=== PATIENT | female | born 1995 | race Caucasian/White ===

== ENCOUNTER 2018-09-11 20:45 | Emergency (ER) | payer MEDICAID, SELFPAY ==
[2018-09-11 20:57] VITALS: BP 155/106; PULSE 114; RESP 22; TEMP 36.9; O2SAT 97; BMI 36.3
--- NOTE | 2018-09-11 21:11 | HMH.EDUTC ---
[facility] – [place], [place] Disposition Clinical Impression: Sinusitis Qualifiers: Sinusitis location: unspecified location Chronicity: acute Recurrence: non-recurrent Qualified Code(s): J01.90 - Acute sinusitis, unspecified Disposition: Home, Self-Care Condition on Discharge: Good Instructions: Sinusitis, DI for Sinusitis Additional Instructions: Drink plenty of fluids. Take tylenol or ibuprofen for pain or fever. take the medications as prescribed. Go to your regular doctor if you are not getting better in 48 hours. GO TO THE ER FOR ANY WORSENING OR LIFE THREATENING SYMPTOMS Prescriptions: Cefdinir [Omnicef 300mg Capsule] 300 mg PO BID #20 cap methylPREDNISolone [Medrol] 4 mg PO DIRECTED 6 Days #21 [email or web address] Referrals: Provider,Referral, MD [Primary Care Provider] - Time of Disposition: 21:15 Medical Decision Making - Medical Records Medical records reviewed: No: I reviewed the patient's medical records. - Sujit Inquiry Pt receiving controlled substance: No Sujit was queried for this patient: No Vital Signs: 09/11/18 20:57 09/11/18 21:15 Temperature 98.5 F 98.6 F Temperature Source Oral Oral Pulse Rate 102 H Pulse Rate [Right Brachial] 114 H Respiratory Rate 22 22 Blood Pressure 149/97 H Blood Pressure [Right Arm] 155/106 H Blood Pressure Mean [Right Arm] 122 Blood Pressure Source [Right Arm] Automatic Cuff Blood Pressure Position [Right Arm] Sitting 02 Sat by Pulse Oximetry 97 Oxygen Delivery Method Room Air Room Air - Lab Data Lab results reviewed: Yes: I reviewed the patient's lab results. Lab Results 09/11/18 20:49: Influenza Type A Ag Negative, Influenza Type B Ag Negative, Strep Scn Rapid Clinic Negative Orders (Tests/Meds): ORDERS Category Date Time Status Strep Screen Confirmation Stat Micro 09/11/18 20:49 Received [facility] – [place], [place] HPI - General Stated complaint: sore ,cough,ZHAO,Weakness Time Seen by Provider: 09/11/18 21:11 Mode of Arrival: Family Vehicle Source of Information: Patient Limitations: No Limitations Description of Symptoms (Recalled from Triage Doc. by RN): pt c/o cough, chills, fever, headache, sore throat since wednesday but it progressivly getting worse. HEENT Symptoms (Recalled from RN notes): Yes (FEVER, HEADACHE, SORE THROAT, CHILLS) Resp Symptoms (Recalled from RN notes): Yes (COUGH) Skin Symptoms (Recalled from RN notes): No MS Symptoms (Recalled from RN notes): No Functional Status (Recalled from RN notes): N/A - History of Present Illness Provider Complaint: She is here with chief compliant of sinus pressure, sinus drainage, ear pain and cough. She was treated last month with azithromycin. She states she did get better then, but over the past 3 days these symptoms have returned. 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 I have reviewed the patient's past medical history: Yes Medical History: Denies:: Cancer, Diabetes Mellitus Type 1, Diabetes Mellitus Type 2, MRSA Amputation: No Fractures: No - Social History Smoking Status: Never smoker Alcohol Intake: never Occupational Status: employed - Psychiatric History Expresses thoughts of harming self/others: None Suicide Plan Description: No Plan ROS Obtained: Yes All systems reviewed & no additional complaints -
[2018-09-11 21:15] VITALS: BP 149/97; PULSE 102; RESP 22; TEMP 37; O2SAT 100
[2018-09-11 21:20] LABS: UTC Influenza A Antigen Negative (Negative); UTC Influenza B Antigen Negative (Negative); UTC Strep Screen (Rapid) Negative (Negative)
== END 2018-09-11 21:23 | disposition home or self-care (01) ==
PROVIDERS: Emergency Provider Nurse Practitioner Family
DX: J01.90 Acute sinusitis, unspecified (principal)
CPT/HCPCS: 87804; 87880; 99202

== ENCOUNTER → 2018-11-14 13:35 | Outpatient (CLI) | payer MEDICAID, SELFPAY ==
[2018-11-14 14:08] LABS: Basophils # 0.1 K/mm3 (0-0.2); Basophils % 0.8 % (0.1-2.0); Eosinophils # 0.2 K/mm3 (0.0-0.4); Eosinophils % 2.9 % (0.1-12.0); Hematocrit 39.2 % (37.0-47.0); Hemoglobin 12.9 g/dL (12.2-16.2); Lymphocytes # 1.5 K/mm3 (0.7-4.5); Lymphocytes % 23.3 % (10-50); Mean Corpuscular HGB Conc 32.8 g/dL (31.8-35.4); Mean Corpuscular Hemoglobin 27.7 pg (27.0-31.2); Mean Corpuscular Volume 84.4 fl (81-99); Mean Platelet Volume 7.7 fl (7.4-10.4); Monocytes # 0.3 K/mm3 (0.1-1.0); Monocytes % 4.8 % (1.7-9.3); Neutrophils # 4.4 K/mm3 (1.8-7.8); Neutrophils % 68.3 % (37.0-80.0); Platelet Count 284 K/mm3 (142-424); Red Blood Count 4.64 M/mm3 (4.20-5.40); Red Cell Distribution Width 13.2 % (11.5-17.5); White Blood Count 6.4 K/mm3 (4.8-10.8)
[2018-11-14 15:30] LABS: Alanine Aminotransferase 22 U/L (12-78); Albumin Level 4.2 gm/dL (3.4-5.0); Albumin/Globulin Ratio 1.2 (1.1-1.8); Alkaline Phosphatase 102 U/L (46-116); Anion Gap 16.5 mEq/L (5-15); Aspartate Amino Transferase 9 U/L (15-37); Bilirubin,Total 0.3 mg/dL (0.2-1.0); Blood Urea Nitrogen 13 mg/dL (7-18); Carbon Dioxide 24 mmol/L (21.0-32.0); Chloride 103 mmol/L (98-107); Chol/HDL Ratio 5.4 (1-3.5); Cholesterol 167 mg/dL (140-200); Estimated Glomerular Filt Rate 122 ml/min (>60); Free T4 (Free Thyroxine) 1.11 ng/dl (0.76-1.46); GFR (African American) 147 ML/MIN (>60); Globulin 3.6 gm/dl (1.3-3.2); Glucose 86 mg/dL (74-106); HDL Cholesterol 31 mg/dL (29-89); LDL Cholesterol 113 mg/dL (0-130); Potassium 4.5 mmoL/L (3.5-5.1); Sodium 139 mmol/L (136-145); Thyroid Stimulating Hormone 1.36 uIU/ml (0.358-3.740); Total Protein,Serum 7.8 gm/dL (6.4-8.2); Triglycerides 113 mg/dL (30-200); VLDL Cholesterol 23 mg/dL (0-40)
[2018-11-15 07:07] LABS: Vitamin D 25 Hydroxy 22.3 ng/mL (30.0-100.0)
== END ==
PROVIDERS: Visit Provider Emergency Medicine
DX: R53.83 Other fatigue (principal); R10.9 Unspecified abdominal pain; E55.9 Vitamin D deficiency, unspecified
CPT/HCPCS: 80053; 80061; 82652; 84439; 84443; 85025

== ENCOUNTER → 2018-11-25 07:47 | Outpatient (CLI) | payer MEDICAID, SELFPAY ==
--- NOTE | 2018-11-25 07:48 | US_ITS ---
US gallbladder HISTORY: Upper abdominal pain ITS.REASON: stomach pain ORDERING PHYSICIAN: Thomas Mehta MD PATIENT AGE: 23 years Comparison: None FINDINGS: PANCREAS: Unremarkable. No obvious mass or abnormal fluid collection. No ductal dilatation LIVER: No focal liver lesions demonstrated. Homogeneous echogenicity. No intrahepatic biliary ductal dilatation evident RIGHT KIDNEY: Unremarkable. Normal size and echogenicity. No hydronephrosis GALLBLADDER: No gallstones, gallbladder wall thickening, pericholecystic fluid, or biliary dilatation. IMPRESSION: Negative gallbladder/right upper quadrant ultrasound
== END ==
PROVIDERS: PCP Emergency Medicine; Visit Provider Emergency Medicine
DX: R10.9 Unspecified abdominal pain (principal)
CPT/HCPCS: 76705

== ENCOUNTER 2018-12-29 09:02 | Emergency (ER) | payer MEDICAID, SELFPAY ==
[2018-12-29 09:15] VITALS: BP 141/98; PULSE 106; RESP 20; TEMP 37.2; O2SAT 97; BMI 37.1
--- NOTE | 2018-12-29 09:23 | HMH.EDUTC ---
[facility] [place] Clinical Impression: Viral upper respiratory illness Disposition: Home, Self-Care Condition on Discharge: Good Instructions: Sore Throat, Common Cold, Cough, DI for Cough -- Adult, DI for Viral Upper Respiratory Infection -- Adult Additional Instructions: *Monitor Temp, Over the counter Motrin or Tylenol as directed/as needed Tylenol every 4 hours and Motrin every 6 hours (as long as your family doctor has told you that you can take it) for fever or pain. and straight to ER if unable to lower temp less than 101.0 after medication given *Warm salt water gargles may help to soothe the throat *Throat Lozenges *Warm fluids *Sleep elevated *Humidifier/Vaporizer *Flonase 2 sprays in each nostril daily but be aware that it may take 2-3 days before you notice improvement Your throat swab was sent for culture. Those results are typically sent to your primary care. Be sure to follow up in 2-3 days with your family doctor/primary care physician if no improvement so they can review those result and treat if necessary. If you don?t have a primary care doctor, I recommend you get one but in the mean time, you will have to return to a walk in clinic Follow up IMMEDIATELY for new or worsening symptoms or no Noticeable improvement over the next 48-72 hours. 911 for difficulty breathing or swallowing Prescriptions: Fluticasone Propionate [Flonase 50mcg nasal spray 16gm] 2 spr NS DAILY #1 bottle Referrals: Thomas Mehta MD [Primary Care Provider] - As needed Time of Disposition: 09:36 Medical Decision Making - Sujit Inquiry Pt receiving controlled substance: No Sujit was queried for this patient: No Vital Signs: 12/29/18 09:15 Temperature 98.9 F Temperature Source Oral Pulse Rate [Right Brachial] 106 H Respiratory Rate 20 Blood Pressure [Right Arm] 141/98 H Blood Pressure Mean [Right Arm] 112 Blood Pressure Source [Right Arm] Automatic Cuff Blood Pressure Position [Right Arm] Sitting 02 Sat by Pulse Oximetry 97 Oxygen Delivery Method Room Air - Lab Data Lab results reviewed: Yes: I reviewed the patient's lab results. [facility] [place] - General Stated complaint: weak, fever, chills, cough, diarrhea Time Seen by Provider: 12/29/18 09:23 Mode of Arrival: Ambulatory Source of Information: Patient Limitations: No Limitations Description of Symptoms (Recalled from Triage Doc. 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 States that this morning she felt better than yesterday but was worried she may have strep State that she has had nausea but denies vomiting or diarrhea - Related Data Home Medications Medication Instructions Recorded Confirmed Cholecalciferol (Vitamin D3) 1,000 unit PO DAILY 12/29/18 12/29/18 [Vitamin D3 1,000 Unit Cap] Ergocalciferol (Vitamin D2) 50,000 unit PO QWEEK 12/29/18 12/29/18 [Drisdol] Lisinopril [Lisinopril 10mg Tab] 10 mg PO DAILY 12/29/18 12/29/18 Pantoprazole Sodium [Protonix 40mg 40 mg PO DAILY 12/29/18 12/29/18 tablet] Previous Rx's Medication Instructions Recorded Fluticasone Propionate [Flonase 2 spr NS DAILY #1 bottle 12/29/18 50mcg nasal spray 16gm] Allergies Allergy/AdvReac Type Severity Reaction Status Date / Time No Known Allergies Allergy Verified 12/07/18 16:26 - Worker's Comp Is this a Worker's Comp case?: No H History
--- NOTE | 2018-12-29 09:26 | ED_ITS ---
[facility] – [place] Clinical Impression: Viral upper respiratory illness Disposition: Home, Self-Care Condition on Discharge: Good Instructions: Sore Throat, Common Cold, Cough, DI for Cough -- Adult, DI for Viral Upper Respiratory Infection -- Adult Additional Instructions: *Monitor Temp, Over the counter Motrin or Tylenol as directed/as needed Tylenol every 4 hours and Motrin every 6 hours (as long as your family doctor has told you that you can take it) for fever or pain. and straight to ER if unable to lower temp less than 101.0 after medication given *Warm salt water gargles may help to soothe the throat *Throat Lozenges *Warm fluids *Sleep elevated *Humidifier/Vaporizer *Flonase 2 sprays in each nostril daily but be aware that it may take 2-3 days before you notice improvement Your throat swab was sent for culture. Those results are typically sent to your primary care. Be sure to follow up in 2-3 days with your family doctor/primary care physician if no improvement so they can review those result and treat if necessary. If you don?t have a primary care doctor, I recommend you get one but in the mean time, you will have to return to a walk in clinic Follow up IMMEDIATELY for new or worsening symptoms or no Noticeable improvement over the next 48-72 hours. 911 for difficulty breathing or swallowing Prescriptions: Fluticasone Propionate [Flonase 50mcg nasal spray 16gm] 2 spr NS DAILY #1 bottle Referrals: Thomas Mehta MD [Primary Care Provider] - As needed Time of Disposition: 09:36 Medical Decision Making - Sujit Inquiry Pt receiving controlled substance: No Sujit was queried for this patient: No Vital Signs: 12/29/18 09:15 Temperature 98.9 F Temperature Source Oral Pulse Rate [Right Brachial] 106 H Respiratory Rate 20 Blood Pressure [Right Arm] 141/98 H Blood Pressure Mean [Right Arm] 112 Blood Pressure Source [Right Arm] Automatic Cuff Blood Pressure Position [Right Arm] Sitting 02 Sat by Pulse Oximetry 97 Oxygen Delivery Method Room Air - Lab Data Lab results reviewed: Yes: I reviewed the patient's lab results. [facility] – [place] H[place] - General Stated complaint: weak, fever, chills, cough, diarrhea Time Seen by Provider: 12/29/18 09:23 Mode of Arrival: Ambulatory Source of Information: Patient Limitations: No Limitations Description of Symptoms (Recalled from Triage Doc. 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 States that this morning she felt better than yesterday but was worried she may have strep State that she has had nausea but denies vomiting or diarrhea - Related Data Home Medications Medication Instructions Recorded Confirmed Cholecalciferol (Vitamin D3) 1,000 unit PO DAILY 12/29/18 12/29/18 [Vitamin D3 1,000 Unit Cap] Ergocalciferol (Vitamin D2) 50
[2018-12-29 09:32] LABS: UTC Strep Screen (Rapid) Negative (Negative)
[2018-12-29 09:42] VITALS: BP 141/98; PULSE 106; RESP 20; TEMP 37.2; O2SAT 97
== END 2018-12-29 09:43 | disposition home or self-care (01) ==
PROVIDERS: Emergency Provider Nurse Practitioner; PCP Emergency Medicine
DX: J06.9 Acute upper respiratory infection, unspecified (principal); I10 Essential (primary) hypertension; K21.9 Gastro-esophageal reflux disease without esophagitis
CPT/HCPCS: 87880; 99201

== ENCOUNTER 2019-01-03 06:18 | Day surgery (SDC) | payer MEDICAID, SELFPAY ==
[2019-01-03 06:42] VITALS: BP 135/78; PULSE 109; RESP 18; TEMP 36.7; O2SAT 99
[2019-01-03 06:50] VITALS: BMI 37.1
[2019-01-03 06:56] LABS: Urine Pregnancy, HCG Qual. Negative (Negative)
[2019-01-03 07:22] VITALS: O2SAT 98
--- NOTE | 2019-01-03 07:39 | HMH.SCOPE ---
- Procedure: Date: 01/03/19 Procedure Performed:: Esophagogastroduodenoscopy with biopsies Indications:: Patient is a 23-year-old white female who is referred by Dr. Lawrence Mehta for possible upper endoscopy. She states that she has a long-standing history of symptoms consistent with heartburn and dyspepsia. It was worst when she was with her child. However, she still does have some symptoms mostly of burning and nausea. It seems to be worse at night and awakens her from sleep. She did have a gallbladder ultrasound which was unremarkable. She has been on pantoprazole for several weeks and this has helped significantly with only one episode of symptomatology. Plan was to proceed with upper endoscopy with biopsies. If unremarkable consideration of HIDA scan. Performing Provider:: Roberto Brooks MD Referring Provider:: Janine Sedation:: Propofol Procedure:: Consent was obtained and patient was taken to endoscopy procedure room. She was positioned in a lateral decubitus position. Sedation was achieved with titration of propofol. Olympus endoscope was inserted via the oropharynx and advanced through the esophagus. Overall esophagus appeared unremarkable. GE junction was encountered at 35 cm from the incisors and appeared unremarkable. Stomach was cannulated and insufflated. There was some retained food matter, minimal, and the gastric lumen. Retroflexion revealed no evidence of any appreciable hiatal hernia. There were several punctate shallow ulcerations versus erosions in the antrum. Pylorus was traversed. There was some food matter in the duodenal bulb. Duodenum overall appeared unremarkable. Please note that CLOtest was performed by biopsy within the gastric lumen. Duodenal biopsy was performed using cold biopsy forceps. Gastric biopsies were performed of the areas of the shallow punctate ulcerations/erosions. Stomach was desufflated and the scope was withdrawn. Findings:: Gastric antral shallow ulcerations/erosions Small amount of retained food matter within gastric lumen Recommendations:: Plan to follow-up on the biopsy results and H. pylori status and tailor medical management appropriately. If biopsies are relatively unremarkable may consider gastric emptying scan that she may have some degree of gastroparesis. Possible biliary dyskinesia may be a contributing factor as well. Complications:: None Estimated blood obtained (mL): 1
[2019-01-03 07:40] VITALS: BP 104/98; PULSE 110; RESP 16; TEMP 36.7; O2SAT 97
--- NOTE | 2019-01-03 07:58 | HMH.ANESCL ---
[facility] Anesthesia Checklist - Structural Data Admitted From: Home Planned Operative Procedure/s: egd Consent for Planned Operative Procedure(s) Verified: Yes - Airway Assessment C-Spine Mobility Assessed: Yes TMJ Mobility Assessed: Yes Dentition: Good Dentition - Neurological Assessment Level of Consciousness: Awake, Alert, Appropriate - Anesthesia Plan Anesthesia Risk discussed: Yes Anesthesia Plan: Verified ASA Class: II Anesthesia Type: [facility] History I have reviewed the patient's past medical history: Yes Medical History: Reports:: Gastroesophageal Reflux Disease(GERD), Hypertension Denies:: Cancer, Diabetes Mellitus Type 1, Diabetes Mellitus Type 2, Internal Pacemaker, Lung Disease, MRSA, Seizures *Have you ever received a pneumonia vaccine?: No *Have you received a flu vaccine this season?: No Other Surgeries: Yes: , Other. No: Pacemaker Amputation: No Fractures: No - *Social History Smoking Status: Never smoker Alcohol Intake: never Substance Use Type: denies use *Occupational Status:: employed *Travel in the last 8 weeks: Inside the [facility] Family Hx:: Heart Attack, Hypertension, Cancer
[2019-01-03 08:00] VITALS: BP 117/58; PULSE 94; RESP 18; TEMP 36.7; O2SAT 98
[2019-01-03 08:10] VITALS: BP 124/68; PULSE 94; RESP 18; TEMP 36.7; O2SAT 96
== END 2019-01-03 08:12 | disposition home or self-care (01) ==
LOC: OUTP 06:19
PROVIDERS: PCP Emergency Medicine; Visit Provider Surgery
PROC: 0DJ08ZZ Inspection of Upper Intestinal Tract, Via Natural or Artificial Opening Endoscopic (ICD-10-PCS; CPT 43235; principal; 2019-01-03 07:30)
DX: K25.9 Gastric ulcer, unspecified as acute or chronic, without hemorrhage or perforation (principal)
CPT/HCPCS: 43239; 81025; 87339

== ENCOUNTER 2019-11-18 13:06 | Emergency (ER) | payer MEDICAID, SELFPAY ==
[2019-11-18 13:30] VITALS: BP 122/79; PULSE 105; RESP 19; TEMP 36.8; O2SAT 98; BMI 37.1
--- NOTE | 2019-11-18 13:39 | HMH.EDUTC ---
[facility] – [place] Clinical Impression: Strep throat Disposition: Home, Self-Care Condition on Discharge: Good Instructions: Strep Throat, DI for Strep Throat Additional Instructions: Drink plenty of fluids. Take tylenol or ibuprofen for pain or fever. Take the medications as directed. Follow up with your regular doctor. GO TO THE ER FOR ANY WORSENING SYMPTOMS Throw your tooth brush away and get a new one by tomorrow. Don't start the oral steroids until tomorrow. If you feel completely better you do not need to start them at all. Prescriptions: methylPREDNISolone [Medrol] 4 mg PO DIRECTED 6 Days #21 [email or web address] Transmission Status: Received by [facility] #[id number] Referrals: Thomas Mehta MD [Primary Care Provider] - Time of Disposition: 14:07 Medical Decision Making - Medical Records Medical records reviewed: No: I reviewed the patient's medical records. - Sujit Inquiry Pt receiving controlled substance: No Vital Signs: 11/18/19 13:30 11/18/19 14:10 Temperature 98.2 F 98.2 F Temperature Source Oral Pulse Rate 105 H Pulse Rate [Left Brachial] 105 H Respiratory Rate 19 19 Blood Pressure 122/79 Blood Pressure [Left Arm] 122/79 Blood Pressure Mean [Left Arm] 93 Blood Pressure Source [Left Arm] Automatic Cuff Blood Pressure Position [Left Arm] Sitting 02 Sat by Pulse Oximetry 98 Oxygen Delivery Method Room Air - Lab Data Lab results reviewed: Yes: I reviewed the patient's lab results. Lab Results 11/18/19 13:41: Influenza Type A Ag Negative, Influenza Type B Ag Negative 11/18/19 13:41: Strep Scn Rapid Clinic Positive A Orders (Tests/Meds): ED MEDICATIONS Discontinued Medications Generic Name Dose Route Start Last Admin Trade Name Freq PRN Reason Stop Dose Admin Methylprednisolone Sodium Succinate 125 mg 11/18/19 13:48 11/18/19 14:01 Solu-Medrol 125mg/2ml Vial IM 11/18/19 13:49 125 mg ONCE ONE Administration Penicillin G Benzathine 1,200,000 unit 11/18/19 13:48 11/18/19 14:01 Bicillin La 1,200,000 Units/2ml Syringe IM 11/18/19 13:49 1,200,000 unit ONCE ONE Administration Protocol [facility] [place] HPI - General Stated complaint: sore throat,fever,headache Time Seen by Provider: 11/18/19 13:39 Mode of Arrival: Ambulatory Source of Information: Patient Limitations: No Limitations Description of Symptoms (Recalled from Triage Doc. by RN): PATIENT C/O SORE THROAT SINCE WEDNESDAY THAT HAS WORSENED, AND MILD COUGH, BODYACHES, HEADACHE, AND FEVER SINCE WEDNESDAY; NO KNOWN SICK CONTACTS OR TRAVEL, PATIENT DOES WORK AT [employer] HEENT Symptoms (Recalled from RN notes): Yes Resp Symptoms (Recalled from RN notes): Yes Skin Symptoms (Recalled from RN notes): No MS Symptoms (Recalled from RN notes): Yes Functional Status (Recalled from RN notes): WNL - History of Present Illness Provider Complaint: She c/o sore throat for the past 2 days. - Related Data Previous Rx's Medication Instructions Recorded pantoprazole 40 mg tablet,delayed 40 mg PO DAILY #90 tab 09/04/19 release lisinopril 10 mg tablet 10 mg PO DAILY #90 tab 10/09/19 methylPREDNISolone [Medrol] 4 mg PO DIRECTED 6 Days #21 11/18/19 [email or web address] Allergies Allergy/AdvReac Type Severity Reaction Status Date / Time No Known Allergies Allergy Verified 08/10/19 10:30 - Worker's Comp Is this a Worker's Comp case?: No [facility] History - Hepatitis A Screen Drug use history?: No High risk sexual behaviors?: No History of sexually transmitted infection?: No Currently employed?: No Childcare worker?: No Do you have indoor plumbing?: Yes Do you have electricity?: Yes Attestation statement:: This patient has been screened for Hepatitis A risk factors. I have reviewed the patient's past medical history: Yes Medical History: Reports:: Gastroesophageal Reflux Disease(GERD), Hypertension Denies:: Cancer, Diabetes Mellitus Type 1, Diabetes Mellitus Type 2,
[2019-11-18 13:43] LABS: UTC Influenza A Antigen Negative (Negative); UTC Influenza B Antigen Negative (Negative); UTC Strep Screen (Rapid) Positive (Negative)
[2019-11-18 14:10] VITALS: BP 122/79; PULSE 105; RESP 19; TEMP 36.8; O2SAT 98
== END 2019-11-18 14:13 | disposition home or self-care (01) ==
PROVIDERS: Emergency Provider Nurse Practitioner Family; PCP Emergency Medicine
DX: J02.0 Streptococcal pharyngitis (principal); K21.9 Gastro-esophageal reflux disease without esophagitis; I10 Essential (primary) hypertension
CPT/HCPCS: 87804; 87880; 96372; 99202; J0561

== ENCOUNTER 2019-12-22 13:02 | Emergency (ER) | payer MEDICAID, SELFPAY ==
[2019-12-22 13:46] VITALS: BP 131/77; PULSE 73; RESP 20; TEMP 36.6; O2SAT 97; BMI 38.7
[2019-12-22 13:50] LABS: UTC Strep Screen (Rapid) Positive (Negative)
--- NOTE | 2019-12-22 13:53 | HMH.EDUTC ---
[facility] [place]: Strep [place] Disposition: Home, Self-Care Condition on Discharge: Good Instructions: Strep Throat (Alternative Therapy), Strep Throat, DI for Strep Throat Additional Instructions: *If you did not take Penicillin shot or was unable to, start taking antibiotic immediately and make sure that you take it for the FULL length of time although you should start to feel better in 24-48 hours *change toothbrush and toothpaste 24-48 hours after starting to take antibiotics so you do not reinfect yourself Monitor Temp. Tylenol and/or Ibuprofen as needed. ER if fever is no less than 101 despite alternating Tylenol and Ibuprofen * Encourage fluids, water, Gatorade, powerade, pedialyte if /toddler/or child *Cold fluids, popsicles and ice cream may feel good on his throat Monitor Temp, Over the counter Motrin or Tylenol as directed/as needed Tylenol every 4 hours and Motrin every 6 hours (as long as your family doctor has told you that you can take it) for fever or pain. and straight to ER if unable to lower temp less than 101.0 after medication given *Warm salt water gargles may help to soothe the throat *Throat Lozenges *Warm fluids *Sleep elevated *Humidifier/Vaporizer Follow up IMMEDIATELY for new or worsening symptoms or no Noticeable improvement over the next 48-72 hours. 911 for difficulty breathing or swallowing Prescriptions: Amoxicillin [Amoxicillin 500mg Cap] 500 mg PO BID 10 Days #20 cap Transmission Status: Pending to [facility] #[id number] Referrals: Thomas Mehta MD [Primary Care Provider] - As needed Time of Disposition: 13:57 Medical Decision Making - Sujit Inquiry Pt receiving controlled substance: No Sujit was queried for this patient: No Vital Signs: 12/22/19 13:46 Temperature 97.9 F Temperature Source Oral Pulse Rate [Right Brachial] 73 Respiratory Rate 20 Blood Pressure [Right Arm] 131/77 Blood Pressure Mean [Right Arm] 95 Blood Pressure Source [Right Arm] Automatic Cuff Blood Pressure Position [Right Arm] Sitting 02 Sat by Pulse Oximetry 97 Oxygen Delivery Method Room Air - Lab Data Lab results reviewed: Yes: I reviewed the patient's lab results. 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 - Related Data Previous Rx's Medication Instructions Recorded pantoprazole 40 mg tablet,delayed 40 mg PO DAILY #90 tab 09/04/19 release lisinopril 10 mg tablet 10 mg PO DAILY #90 tab 10/09/19 Amoxicillin [Amoxicillin 500mg 500 mg PO BID 10 Days #20 cap 12/22/19 Cap] Allergies Allergy/AdvReac Type Severity Reaction Status Date / Time No Known Allergies Allergy Verified 08/10/19 10:30 - Worker's Comp Is this a Worker's Comp case?: No [facility] History - Hepatitis A Screen Drug use history?: No High risk sexual behaviors?: No History of sexually transmitted infection?: No Currently employed?: No Childcare worker?: No Do you have indoor plumbing?: Yes Do you have electricity?: Yes Attestation statement:: This patient has been screened for Hepatitis A risk factors. I have re
[2019-12-22 14:08] VITALS: BP 131/77; PULSE 73; RESP 20; TEMP 36.6; O2SAT 97
== END 2019-12-22 14:14 | disposition home or self-care (01) ==
PROVIDERS: Emergency Provider Nurse Practitioner; PCP Emergency Medicine
DX: J02.0 Streptococcal pharyngitis (principal); I10 Essential (primary) hypertension; K21.9 Gastro-esophageal reflux disease without esophagitis; Z79.899 Other long term (current) drug therapy
CPT/HCPCS: 87880; 99201

== ENCOUNTER 2020-02-06 20:07 | Emergency (ER) | payer MEDICAID, SELFPAY ==
[2020-02-06 20:22] VITALS: BP 124/100; PULSE 99; RESP 21; TEMP 36.6; O2SAT 98; BMI 39.0
--- NOTE | 2020-02-06 20:36 | HMH.EDUTC ---
[facility] [place] Disposition Clinical Impression: Bronchitis Disposition: Home, Self-Care Condition on Discharge: Good Instructions: Acute Bronchitis, DI for Acute Bronchitis Additional Instructions: Drink plenty of fluids. Take tylenol or ibuprofen for pain or fever. Take the medications as directed. Follow up with your regular doctor. GO TO THE ER FOR ANY WORSENING SYMPTOMS Prescriptions: Brompheniramine/Pseudoephed/Dm [Bromfed Dm Cough Syrup] 5 ml PO Q6HP PRN #240 syrup PRN Reason: Cough Transmission Status: Received by [employer] # methylPREDNISolone [Medrol] 4 mg PO DIRECTED 6 Days #21 tab.[email or web address] Transmission Status: Received by [employer] # Azithromycin [Z-Jam 250mg Tab*] 250 mg PO UD DOSE PK #6 tab Transmission Status: Received by [employer] # Referrals: Thomas Mehta MD [Primary Care Provider] - Forms: Work/School Release Time of Disposition: 20:38 Medical Decision Making - Medical Records Medical records reviewed: No: I reviewed the patient's medical records. - Sujit Inquiry Pt receiving controlled substance: No Vital Signs: 02/06/20 20:22 02/06/20 20:42 Temperature 97.9 F 97.9 F Temperature Source Oral Pulse Rate 99 H Pulse Rate [Right Brachial] 99 H Respiratory Rate 21 21 Blood Pressure 124/100 H Blood Pressure [Right Arm] 124/100 H Blood Pressure Mean [Right Arm] 108 Blood Pressure Source [Right Arm] Automatic Cuff Blood Pressure Position [Right Arm] Sitting 02 Sat by Pulse Oximetry 98 Oxygen Delivery Method Room Air - Lab Data Lab Results 02/06/20 20:27: Strep Scn Rapid Clinic Negative Orders (Tests/Meds): ORDERS Category Date Time Status SARS-CoV-2, HANK Stat Lab 02/06/20 20:39 Received Strep Screen Confirmation Stat Micro 02/06/20 20:27 Received [facility] [place] HPI - General Stated complaint: cough,ZHAO,Weakness Time Seen by Provider: 02/06/20 20:25 Mode of Arrival: Ambulatory Source of Information: Patient Limitations: No Limitations Description of Symptoms (Recalled from Triage Doc. by RN): PATIENT C/O COUGH (PRODUCTIVE IN AM), HEADACHE, SORE THROAT, WEAKNESS, AND EAR ACHE SINCE WEDNESDAY. DENIES FEVER HEENT Symptoms (Recalled from RN notes): Yes Resp Symptoms (Recalled from RN notes): Yes Skin Symptoms (Recalled from RN notes): No MS Symptoms (Recalled from RN notes): No Functional Status (Recalled from RN notes): WNL - History of Present Illness Provider Complaint: She c/o cough, sinus congestion and sore throat for the past 2 days. She denies any fever or chills. 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 - Related Data Previous Rx's Medication Instructions Recorded lisinopril 10 mg tablet 10 mg PO DAILY #90 tab 01/05/20 pantoprazole 40 mg tablet,delayed 40 mg PO DAILY #90 tab 01/05/20 release Azithromycin [Z-Jam 250mg Tab*] 250 mg PO UD DOSE PK #6 tab 02/06/20 Brompheniramine/Pseudoephed/Dm 5 ml PO Q6HP PRN #240 syrup 02/06/20 [Bromfed Dm Cough Syrup] methylPREDNISolone [Medrol] 4 mg PO DIRECTED 6 Days #21 02/06/20 tab.ds.pk Allergies Allergy/AdvReac Type Severity Reaction Status Date / Time No Known Allergies Allergy Verified 08/10/19 10:30 - Worker's Comp Is this a Worker's Comp case?: No [facility] History - Hepatitis A Screen Drug use history?: No High risk sexual behaviors?: No History of sexually transmitted infection?: No Currently employed?: No Childcare worker?: No Do you have indoor plumbing?: Yes Do you have electricity?: Yes Attestation statement:: This patient has been screened for Hepatitis A risk factors. I have reviewed the patient's past medical history: Yes Medical History: Reports:: Gastroesophageal Reflux Disease(GERD), Hypertension Denies:: Cancer, Diabetes Mellitus Type 1, Diabetes Mellitus Type 2, Internal Pacemaker, Lung Disease, MRSA, Seizures Other Surgeries: Yes: , EGD, Other. No: Pacemaker Amputation: No Fractures: No - Social History S
[2020-02-06 20:37] LABS: UTC Strep Screen (Rapid) Negative (Negative)
[2020-02-06 20:42] VITALS: BP 124/100; PULSE 99; RESP 21; TEMP 36.6; O2SAT 98
[2020-02-08 11:46] LABS: Covid-19 Nasal PCR Sendout Lex Not Detected
== END 2020-02-06 20:45 | disposition home or self-care (01) ==
PROVIDERS: Emergency Provider Nurse Practitioner Family; PCP Emergency Medicine
DX: J20.9 Acute bronchitis, unspecified (principal); K21.9 Gastro-esophageal reflux disease without esophagitis; I10 Essential (primary) hypertension
CPT/HCPCS: 87880; 99202; U0004

== ENCOUNTER → 2020-04-24 18:15 | Outpatient (CLI) | payer MEDICAID, SELFPAY | PROVIDERS: Visit Provider Nurse Practitioner Family | DX: N39.0 Urinary tract infection, site not specified (principal) | CPT/HCPCS: 87086; 87088; 87186 ==

== ENCOUNTER 2020-07-15 16:50 | Emergency (ER) | payer MEDICAID, SELFPAY ==
[2020-07-15 18:00] VITALS: BP 168/89; PULSE 86; RESP 20; TEMP 36.6; O2SAT 100; BMI 40.3
--- NOTE | 2020-07-15 18:25 | HMH.EDUTC ---
[facility] [place] Clinical Impression: Close exposure to COVID-19 virus Disposition: Home, Self-Care Condition on Discharge: Good Instructions: DI for COVID-19 (Suspected or Confirmed ), COVID-19: Testing and Tracing, COVID-19 Viral Test Additional Instructions: *Monitor Temp, Over the counter Motrin or Tylenol as directed/as needed Tylenol every 4 hours and Motrin every 6 hours (as long as your family doctor has told you that you can take it) for fever or pain. and straight to ER if unable to lower temp less than 101.0 after medication given Follow up IMMEDIATELY for new or worsening symptoms or no Noticeable improvement over the next 48-72 hours. 911 for difficulty breathing or swallowing You were tested for today for COVID19 your test result should be back in the next 24-48 hours, you may call to the [facility] to see if your test results are back in the next 48 hours [phone] [facility] hours are 9am-9pm You was given a handout with instructions for Self Quarantine and Self isolation for while you wait on test results and what to do if they are positive If you are positive the Health Dept will be contacting you also Referrals: Thomas Mehta MD [Primary Care Provider] - As needed Forms: Work/School Release Time of Disposition: 18:27 Medical Decision Making - Sujit Inquiry Pt receiving controlled substance: No Sujit was queried for this patient: No Vital Signs: 07/15/20 18:00 Temperature 97.8 F Temperature Source Temporal Artery Scan Pulse Rate [Right Brachial] 86 Respiratory Rate 20 Blood Pressure [Right Arm] 168/89 H Blood Pressure Mean [Right Arm] 115 Blood Pressure Source [Right Arm] Automatic Cuff Blood Pressure Position [Right Arm] Sitting 02 Sat by Pulse Oximetry 100 Oxygen Delivery Method Room Air Orders (Tests/Meds): ORDERS Category Date Time Status Covid-19 Nasal PCR Sendout P&C Stat Lab 07/15/20 18:05 Received [facility] [place] - General Stated complaint: covid exposure Time Seen by Provider: 07/15/20 18:25 Mode of Arrival: Ambulatory Source of Information: Patient Limitations: No Limitations Description of Symptoms (Recalled from Triage Doc. 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 - Related Data Previous Rx's Medication Instructions Recorded cephalexin 500 mg capsule 500 mg PO BID 10 Days #20 cap 04/24/20 lisinopril 10 mg tablet 10 mg PO DAILY #90 tab 07/05/20 pantoprazole 40 mg tablet,delayed 40 mg PO DAILY #90 tab 07/05/20 release Allergies Allergy/AdvReac Type Severity Reaction Status Date / Time No Known Allergies Allergy Verified 04/24/20 16:04 - Worker's Comp Is this a Worker's Comp case?: No [facility] History - Hepatitis A Screen Drug use history?: No High risk sexual behaviors?: No History of sexually transmitted infection?: No Currently employed?: No Childcare worker?: No Do you have indoor plumbing?: Yes Do you have electricity?: Yes Attestation statement:: This patient has been screened for Hepatitis A risk factors. I have reviewed the patient's past medical history: Yes Medical History: Reports:: Gastroesophageal Reflux Disease(GERD), Hypertension Denies:: Cancer, Diabetes Mellitus Type 1, Diabetes Mellitus Type 2, Internal Pacemaker, Lung Disease, MRSA, Seizures Other Surgeries: Yes: , EGD, Other. No: Pacemaker Amputation: No Fractures: No - Social History Smoking Status: Never smoker Alcohol Intake: never Substance Use Type: denies use Oc
[2020-07-15 18:35] VITALS: BP 168/89; PULSE 86; RESP 20; TEMP 36.6; O2SAT 100
--- NOTE | 2020-07-20 12:32 | PC.NURSE ---
Patient notified of positive COVID results. Educated on quarantine.
== END 2020-07-15 18:40 | disposition home or self-care (01) ==
PROVIDERS: Emergency Provider Nurse Practitioner; PCP Emergency Medicine
DX: Z20.828 Contact with and (suspected) exposure to other viral communicable diseases (principal); I10 Essential (primary) hypertension; K21.9 Gastro-esophageal reflux disease without esophagitis; Z79.899 Other long term (current) drug therapy
CPT/HCPCS: 99201; U0003; U0004

== ENCOUNTER 2020-07-25 08:58 | Emergency (ER) | payer MEDICAID, SELFPAY ==
[2020-07-25 09:10] VITALS: BP 167/76; PULSE 103; RESP 20; TEMP 36.4; O2SAT 100; BMI 38.7
--- NOTE | 2020-07-25 09:35 | HMH.EDUTC ---
[facility] [place] Disposition Clinical Impression: Encounter for laboratory testing for COVID-19 virus Disposition: Home, Self-Care Condition on Discharge: Good Instructions: DI for COVID-19 (Suspected or Confirmed ), Coronavirus Disease 2019, Preventing the Spread of Coronavirus Discharge Instructions Additional Instructions: *Monitor Temp, Over the counter Motrin or Tylenol as directed/as needed Tylenol every 4 hours and Motrin every 6 hours (as long as your family doctor has told you that you can take it) for fever or pain. and straight to ER if unable to lower temp less than 101.0 after medication given Follow up IMMEDIATELY for new or worsening symptoms or no Noticeable improvement over the next 48-72 hours. 911 for difficulty breathing or swallowing You were tested for today for COVID19 your test result should be back in the next 24-48 hours, you may call to the [facility] to see if your test results are back in the next 48 hours [phone] [facility] hours are 9am-9pm You was given a handout with instructions for Self Quarantine and Self isolation for while you wait on test results and what to do if they are positive If you are positive the Health Dept will be contacting you also Referrals: Thomas Mehta MD [Primary Care Provider] - As needed Forms: Work/School Release Time of Disposition: 09:38 Medical Decision Making - Sujit Inquiry Pt receiving controlled substance: No Sujit was queried for this patient: No Vital Signs: 07/25/20 09:10 Temperature 97.5 F L Temperature Source Temporal Artery Scan Pulse Rate [Right Brachial] 103 H Respiratory Rate 20 Blood Pressure [Right Arm] 167/76 H Blood Pressure Mean [Right Arm] 106 Blood Pressure Source [Right Arm] Automatic Cuff Blood Pressure Position [Right Arm] Sitting 02 Sat by Pulse Oximetry 100 Oxygen Delivery Method Room Air Orders (Tests/Meds): ORDERS Category Date Time Status Covid-19 Nasal PCR Sendout P&C Routine Lab 07/25/20 09:10 Received [facility] [place] HPI - General Stated complaint: covid re test Time Seen by Provider: 07/25/20 09:35 Mode of Arrival: Ambulatory Source of Information: Patient Limitations: No Limitations Description of Symptoms (Recalled from Triage Doc. by RN): PATIENT PREVIOUSLY TESTED POSITIVE FOR COVID; WANTS RE-TESTED HEENT Symptoms (Recalled from RN notes): No Resp Symptoms (Recalled from RN notes): No Skin Symptoms (Recalled from RN notes): No MS Symptoms (Recalled from RN notes): No Functional Status (Recalled from RN notes): WNL - History of Present Illness Provider Complaint: Patient states that she was recently positive for COVID States that she has not been having any symptoms but work would not let her return until she has a negative COVID test so she come back in today to get rechecked - Related Data Previous Rx's Medication Instructions Recorded cephalexin 500 mg capsule 500 mg PO BID 10 Days #20 cap 04/24/20 lisinopril 10 mg tablet 10 mg PO DAILY #90 tab 07/05/20 pantoprazole 40 mg tablet,delayed 40 mg PO DAILY #90 tab 07/05/20 release Allergies Allergy/AdvReac Type Severity Reaction Status Date / Time No Known Allergies Allergy Verified 04/24/20 16:04 - Worker's Comp Is this a Worker's Comp case?: No [facility] History - Hepatitis A Screen Drug use history?: No High risk sexual behaviors?: No History of sexually transmitted infection?: No Currently employed?: No Childcare worker?: No Do you have indoor plumbing?: Yes Do you have electricity?: Yes Attestation statement:: This patient has been screened for Hepatitis A risk factors. I have reviewed the patient's past medical history: Yes Medical History: Reports:: Gastroesophageal Reflux Disease(GERD), Hypertension Denies:: Cancer, Diabetes Mellitus Type 1, Diabetes Mellitus Type 2, Internal Pacemaker, Lung Disease, MRSA, Seizures Other Surgeries: Yes: , EGD, Other. No: Pacemaker Amputation: No Fractures: No - Social History Smoking St
[2020-07-25 09:46] VITALS: BP 167/76; PULSE 103; RESP 20; TEMP 36.4; O2SAT 100
[2020-07-26 13:53] LABS: Covid-19 Nasal PCR Sendout P&C POSITIVE
--- NOTE | 2020-07-26 15:20 | PC.NURSE ---
patient notified of positive covid test
== END 2020-07-25 09:50 | disposition home or self-care (01) ==
PROVIDERS: Emergency Provider Nurse Practitioner; PCP Emergency Medicine
DX: U07.1 COVID-19 (principal); I10 Essential (primary) hypertension; K21.9 Gastro-esophageal reflux disease without esophagitis
CPT/HCPCS: 99202; G0463; U0004

== ENCOUNTER 2020-08-01 09:04 | Emergency (ER) | payer MEDICAID, SELFPAY ==
[2020-08-01 09:27] VITALS: RESP 16; TEMP 36.9; O2SAT 98; BMI 36.6
--- NOTE | 2020-08-01 09:33 | HMH.EDUTC ---
[facility] [place] Disposition Clinical Impression: COVID-19 Disposition: Home, Self-Care Condition on Discharge: Good Instructions: DI for COVID-19 (Suspected or Confirmed ), Preventing the Spread of Coronavirus Discharge Instructions Additional Instructions: Drink plenty of fluids. Take tylenol or ibuprofen for pain or fever. Take the medications as directed. Follow up with your regular doctor. GO TO THE ER FOR ANY WORSENING SYMPTOMS Referrals: Thomas Mehta MD [Primary Care Provider] - Time of Disposition: 09:34 Medical Decision Making - Medical Records Medical records reviewed: No: I reviewed the patient's medical records. - Sujit Inquiry Pt receiving controlled substance: No Vital Signs: 08/01/20 09:27 08/01/20 09:39 Temperature 98.4 F 98.4 F Temperature Source Oral Oral Pulse Rate 87 Respiratory Rate 16 16 Blood Pressure 0/0 L Blood Pressure Source Automatic Cuff Blood Pressure Position Sitting 02 Sat by Pulse Oximetry 98 Oxygen Delivery Method Room Air Room Air Orders (Tests/Meds): ORDERS Category Date Time Status Covid-19 Nasal PCR ([facility]) Routine Lab 08/01/20 09:25 Received [facility] [place] HPI - General Stated complaint: covid test Time Seen by Provider: 08/01/20 09:33 Mode of Arrival: Ambulatory Source of Information: Patient Limitations: No Limitations Description of Symptoms (Recalled from Triage Doc. by RN): pt here for covid test. denies any symptoms HEENT Symptoms (Recalled from RN notes): No Resp Symptoms (Recalled from RN notes): No Skin Symptoms (Recalled from RN notes): No MS Symptoms (Recalled from RN notes): No Functional Status (Recalled from RN notes): na - History of Present Illness Provider Complaint: She is here to be retested for covid-19. She was positive about 10 days ago. She denies any symptoms over the past 4 days approx. - Related Data Previous Rx's Medication Instructions Recorded cephalexin 500 mg capsule 500 mg PO BID 10 Days #20 cap 04/24/20 lisinopril 10 mg tablet 10 mg PO DAILY #90 tab 07/05/20 pantoprazole 40 mg tablet,delayed 40 mg PO DAILY #90 tab 07/05/20 release Allergies Allergy/AdvReac Type Severity Reaction Status Date / Time No Known Allergies Allergy Verified 04/24/20 16:04 - Worker's Comp Is this a Worker's Comp case?: No [facility] History - Hepatitis A Screen Drug use history?: No High risk sexual behaviors?: No History of sexually transmitted infection?: No Currently employed?: No Childcare worker?: No Do you have indoor plumbing?: Yes Do you have electricity?: Yes Attestation statement:: This patient has been screened for Hepatitis A risk factors. I have reviewed the patient's past medical history: Yes Medical History: Reports:: Gastroesophageal Reflux Disease(GERD), Hypertension Denies:: Cancer, Diabetes Mellitus Type 1, Diabetes Mellitus Type 2, Internal Pacemaker, Lung Disease, MRSA, Seizures Other Surgeries: Yes: , EGD, Other. No: Pacemaker Amputation: No Fractures: No - Social History Smoking Status: Never smoker Alcohol Intake: never Substance Use Type: denies use Occupational Status: other Family Hx:: Heart Attack, Hypertension, Cancer ROS Obtained: Yes All systems reviewed & no additional complaints - Constitutional Constitutional: Reports system reviewed and no additional complaints, except as docu - Eyes Eyes: Reports system reviewed and no additional complaints, except as docu - ENT Ears, Nose, Mouth, and Throat: Reports system reviewed and no additional complaints, except as docu - Cardiovascular Cardiovascular: Reports system reviewed and no additional complaints, except as docu - Respiratory Respiratory: Reports system reviewed and no additional complaints, except as docu - Gastrointestinal Gastrointestingal: Reports: system reviewed and no additional complaints, except as docu Physical Exam - General General appearance: alert, in no apparent distress - He
[2020-08-01 09:39] VITALS: BP 0/0; PULSE 87; RESP 16; TEMP 36.9; O2SAT 98
--- NOTE | 2020-08-01 14:03 | PC.NURSE ---
PATIENT INFORMED OF POSITIVE COVID RESULTS
== END 2020-08-01 09:40 | disposition home or self-care (01) ==
PROVIDERS: Emergency Provider Nurse Practitioner Family; PCP Emergency Medicine
DX: U07.1 COVID-19 (principal); I10 Essential (primary) hypertension; K21.9 Gastro-esophageal reflux disease without esophagitis
CPT/HCPCS: 99202; G0463; U0003

== ENCOUNTER 2020-12-03 09:01 | Emergency (ER) | payer MEDICAID, SELFPAY ==
[2020-12-03 09:05] VITALS: BP 137/81; PULSE 85; RESP 18; TEMP 36.8; O2SAT 97; BMI 40.5
[2020-12-03 09:43] LABS: UTC Strep Screen (Rapid) Positive (Negative)
[2020-12-03 10:15] VITALS: BP 137/81; PULSE 85; RESP 18; TEMP 36.8; O2SAT 97
== END 2020-12-03 10:16 | disposition home or self-care (01) ==
LOC: UTC 09:05
PROVIDERS: Emergency Provider Nurse Practitioner Family; PCP Emergency Medicine
DX: Z53.21 Procedure and treatment not carried out due to patient leaving prior to being seen by health care provider (principal); R11.2 Nausea with vomiting, unspecified
CPT/HCPCS: 87880; 99202; G0463

== ENCOUNTER 2020-12-13 19:24 | Emergency (ER) | payer MEDICAID, SELFPAY ==
[2020-12-13 19:25] VITALS: BP 122/76; PULSE 101; RESP 20; TEMP 36.8; O2SAT 100; BMI 39.9
--- NOTE | 2020-12-13 19:33 | ED_ITS ---
[facility] [place] Clinical Impression: Strep throat Disposition: Home, Self-Care Condition on Discharge: Good Instructions: DI for Strep Throat Additional Instructions: Replace toothbrush Prescriptions: Amoxicillin/Potassium Clav [Augmentin 875-125 Tablet] 1 tab PO Q12H 10 Days #20 tab Transmission Status: Pending to [employer] #[id number] Referrals: Thomas Mehta MD [Primary Care Provider] - Time of Disposition: 19:38 Medical Decision Making - Sujit Inquiry Pt receiving controlled substance: No [facility] [place]PI - General Stated complaint: sore throat Time Seen by Provider: 12/13/20 19:33 - History of Present Illness Provider Complaint: Patient had PCN injection 12/03 for positive strep but has had persistent sore throat and fever. Throat feels swollen. Onset (ago): day(s) (10) Relieving factors: none Exacerbating factors: none Associated symptoms: denies other symptoms Treatments prior to arrival: none - Related Data Home Medications Medication Instructions Recorded Confirmed Trazodone HCl 50 mg PO HS 12/03/20 12/03/20 lisinopriL [Lisinopril] 10 mg PO DAILY 12/03/20 12/03/20 Previous Rx's Medication Instructions Recorded pantoprazole 40 mg tablet,delayed 40 mg PO DAILY #90 tab 10/01/20 release methylprednisolone 4 mg tablets in See Rx Instructions PO PER PKG DIR 12/06/20 a dose pack #21 tab Amoxicillin/Potassium Clav 1 tab PO Q12H 10 Days #20 tab 12/13/20 [Augmentin 875-125 Tablet] Allergies Allergy/AdvReac Type Severity Reaction Status Date / Time No Known Allergies Allergy Verified 12/03/20 10:44 [facility] History - Hepatitis A Screen Attestation statement:: This patient has been screened for Hepatitis A risk factors. I have reviewed the patient's past medical history: Yes Medical History: Reports:: Gastroesophageal Reflux Disease(GERD), Hypertension Denies:: Cancer, Diabetes Mellitus Type 1, Diabetes Mellitus Type 2, Internal Pacemaker, Lung Disease, MRSA, Seizures Other Surgeries: Yes: , EGD, Other. No: Pacemaker Amputation: No Fractures: No - Social History Smoking Status: Never smoker Alcohol Intake: never Substance Use Type: denies use Occupational Status: other Family Hx:: Heart Attack, Hypertension, Cancer ROS Obtained: Yes All systems reviewed & no additional complaints - ENT Ears, Nose, Mouth, and Throat: Reports sore throat, Reports throat swelling Physical Exam - General General appearance: alert, in no apparent distress - Head Head exam: normocephalic - Eye Eye exam: Present: PERRL - ENT ENT exam: Present: TM's normal bilaterally - Expanded ENT Exam Throat exam: Present: tonsillar erythema, tonsillomegaly, tonsillar exudate - Respiratory Respiratory exam: Present: normal lung sounds bilaterally - Cardiovascular Cardiovascular exam: Present: regular rate, normal rhythm - Neurological Exam Neurological exam: Present: alert, oriented X3 - Psychiatric Psychiatric exam: Present: normal affect, normal mood - Skin Skin exam: Present: warm, dry, intact
[2020-12-13 19:39] VITALS: BP 122/76; PULSE 101; RESP 20; TEMP 36.8; O2SAT 100
[2020-12-13 19:43] LABS: UTC Strep Screen (Rapid) Positive (Negative)
== END 2020-12-13 19:43 | disposition home or self-care (01) ==
PROVIDERS: Emergency Provider Physician Assistant; PCP Emergency Medicine
DX: J02.0 Streptococcal pharyngitis (principal); K21.9 Gastro-esophageal reflux disease without esophagitis; I10 Essential (primary) hypertension; Z79.899 Other long term (current) drug therapy
CPT/HCPCS: 87880; 99202; G0463

== ENCOUNTER 2021-03-30 11:28 | Emergency (ER) | payer MEDICAID, SELFPAY ==
[2021-03-30 11:30] VITALS: BP 133/73; PULSE 73; RESP 18; TEMP 37.3; O2SAT 99; BMI 41.5
--- NOTE | 2021-03-30 12:03 | HMH.EDUTC ---
[facility] [place] Clinical Impression: Encounter for laboratory testing for COVID-19 virus, Strep throat Disposition: Home, Self-Care Condition on Discharge: Good Instructions: DI for Strep Throat Additional Instructions: covid swab was sent to lab, call later today for results. self isolate until test results are known to be negative Start antibiotics today be sure to take it as ordered with the full length of time although you should start feeling better in 24-48 hours. Change toothbrush and toothpaste 24-48 hours after starting antibiotics Tylenol or Motrin as needed for fever or pain Encourage fluids, water, Gatorade, Powerade, try cold fluids, popsicles, ice cream will make it feel better You are contagious for 24 hours. Avoid kissing anyone, no eating or drinking after anyone. You are contagious. Follow-up the ER for new or worsening symptoms or no noticeable improvement over the next 24-48 hours. Follow-up with PCP this week. Prescriptions: Azithromycin [Zithromax 250mg tab] 250 mg PO DIRECTED #6 tab Transmission Status: Pending to [facility] #[id number] Referrals: Thomas Mehta MD [Primary Care Provider] - Time of Disposition: 12:06 Medical Decision Making - Sujit Inquiry Pt receiving controlled substance: No Vital Signs: 03/30/21 11:30 Temperature 99.1 F Temperature Source Oral Pulse Rate [Left Brachial] 73 Respiratory Rate 18 Blood Pressure [Left Arm] 133/73 Blood Pressure Mean [Left Arm] 93 02 Sat by Pulse Oximetry 99 Oxygen Delivery Method Room Air [facility] [place] HPI - General Chief complaint: [facility]gent [facility] Stated complaint: possible strep, sore throat Time Seen by Provider: 03/30/21 12:03 Mode of Arrival: Ambulatory Source of Information: Patient Limitations: No Limitations Description of Symptoms (Recalled from Triage Doc. by RN): PATIENT C/O SORE THROAT SINCE WEDNESDAY HEENT Symptoms (Recalled from RN notes): Yes Resp Symptoms (Recalled from RN notes): No Skin Symptoms (Recalled from RN notes): No MS Symptoms (Recalled from RN notes): No Functional Status (Recalled from RN notes): WNL - History of Present Illness Provider Complaint: 26 yr old female presents for sore throat, freq trep throat - Related Data Home Medications Medication Instructions Recorded Confirmed Trazodone HCl 50 mg PO HS 12/03/20 12/03/20 lisinopriL [Lisinopril] 10 mg PO DAILY 12/03/20 12/03/20 Previous Rx's Medication Instructions Recorded methylprednisolone 4 mg tablets in See Rx Instructions PO PER PKG DIR 12/06/20 a dose pack #21 tab Amoxicillin/Potassium Clav 1 tab PO Q12H 10 Days #20 tab 12/13/20 [Augmentin 875-125 Tablet] pantoprazole 40 mg tablet,delayed 40 mg PO DAILY #90 tab 01/09/21 release Azithromycin [Zithromax 250mg 250 mg PO DIRECTED #6 tab 03/30/21 tab] Allergies Allergy/AdvReac Type Severity Reaction Status Date / Time No Known Allergies Allergy Verified 12/03/20 10:44 - Worker's Comp Is this a Worker's Comp case?: No [facility] History - Hepatitis A Screen Drug use history?: No High risk sexual behaviors?: No History of sexually transmitted infection?: No Currently employed?: No Childcare worker?: No Do you have indoor plumbing?: Yes Do you have electricity?: Yes Attestation statement:: This patient has been screened for Hepatitis A risk factors. I have reviewed the patient's past medical history: Yes Medical History: Reports:: Gastroesophageal Reflux Disease(GERD), Hypertension Denies:: Cancer, Diabetes Mellitus Type 1, Diabetes Mellitus Type 2, Internal Pacemaker, Lung Disease, MRSA, Seizures Other Surgeries: Yes: , EGD, Other. No: Pacemaker Amputation: No Fractures: No - Social History Smoking Status: Never smoker Alcohol Intake: never Substance Use Type: denies use Occupational Status: other Family Hx:: Heart Attack, Hypertension, Cancer ROS Obtained: Yes Systems reviewed as appropriate & no additional co
[2021-03-30 12:04] LABS: UTC Strep Screen (Rapid) Negative (Negative)
[2021-03-30 12:07] VITALS: BP 133/73; PULSE 73; RESP 18; TEMP 37.3; O2SAT 99
== END 2021-03-30 12:13 | disposition home or self-care (01) ==
PROVIDERS: Emergency Provider Nurse Practitioner Family; PCP Emergency Medicine
DX: J02.0 Streptococcal pharyngitis (principal); Z20.822 Contact with and (suspected) exposure to COVID-19
CPT/HCPCS: 87880; 99203; G0463; U0003

== ENCOUNTER → 2021-05-07 10:09 | Outpatient (CLI) | payer MEDICAID, SELFPAY | PROVIDERS: PCP Emergency Medicine; Visit Provider Nurse Practitioner | DX: Z20.822 Contact with and (suspected) exposure to COVID-19 (principal) | CPT/HCPCS: C9803; U0003; U0005 ==

== ENCOUNTER 2021-05-16 17:41 | Emergency (ER) | payer MEDICAID, SELFPAY ==
[2021-05-16 18:02] VITALS: BP 140/93; PULSE 86; RESP 16; TEMP 36.8; O2SAT 100; BMI 41.5
--- NOTE | 2021-05-16 18:02 | HMH.EDUTC ---
[facility] [place] Disposition Clinical Impression: Sinusitis Disposition: Home, Self-Care Condition on Discharge: Good Instructions: DI for Sinusitis Prescriptions: Amoxicillin [Amoxicillin 875MG Tab] 875 mg PO Q12H #20 tab Transmission Status: Pending to [facility] # predniSONE [Prednisone 20mg Tab] 20 mg PO BID 5 Days #10 tab Transmission Status: Pending to [facility] # Pseudoephedrine HCl [Sudafed 12 Hour 120mg Tab] 1 tab PO BID 10 Days #20 tab Transmission Status: Pending to [facility] # Referrals: Thomas Mehta MD [Primary Care Provider] - Time of Disposition: 18:16 Medical Decision Making - Sujit Inquiry Pt receiving controlled substance: No - Lab Data Lab results reviewed: Yes: I reviewed the patient's lab results. [facility] [place] HPI - General Stated complaint: Sore throat Time Seen by Provider: 05/16/21 18:02 - History of Present Illness Provider Complaint: Sore throat X 1 week. No fever. Worse today. Mild congestion and cough. Tested negative for COVID19. Onset (ago): week(s) (1) Relieving factors: none Exacerbating factors: none Associated symptoms: denies other symptoms Treatments prior to arrival: none - Related Data Home Medications Medication Instructions Recorded Confirmed Trazodone HCl 50 mg PO HS 12/03/20 12/03/20 Previous Rx's Medication Instructions Recorded pantoprazole 40 mg tablet,delayed 40 mg PO DAILY #90 tab 04/02/21 release lisinopril 10 mg tablet 10 mg PO DAILY #90 tab 04/09/21 Amoxicillin [Amoxicillin 875MG 875 mg PO Q12H #20 tab 05/16/21 Tab] Pseudoephedrine HCl [Sudafed 12 1 tab PO BID 10 Days #20 tab 05/16/21 Hour 120mg Tab] predniSONE [Prednisone 20mg 20 mg PO BID 5 Days #10 tab 05/16/21 Tab] Allergies Allergy/AdvReac Type Severity Reaction Status Date / Time No Known Allergies Allergy Verified 12/03/20 10:44 [facility] History - Hepatitis A Screen Attestation statement:: This patient has been screened for Hepatitis A risk factors. I have reviewed the patient's past medical history: Yes Medical History: Reports:: Gastroesophageal Reflux Disease(GERD), Hypertension Denies:: Cancer, Diabetes Mellitus Type 1, Diabetes Mellitus Type 2, Internal Pacemaker, Lung Disease, MRSA, Seizures Other Surgeries: Yes: , EGD, Other. No: Pacemaker Amputation: No Fractures: No - Social History Smoking Status: Never smoker Alcohol Intake: never Substance Use Type: denies use Occupational Status: other Family Hx:: Heart Attack, Hypertension, Cancer ROS Obtained: Yes All systems reviewed & no additional complaints - ENT Ears, Nose, Mouth, and Throat: Reports sore throat Physical Exam - General General appearance: alert, in no apparent distress - Head Head exam: normocephalic - Eye Eye exam: Present: PERRL - ENT ENT exam: Present: TM's normal bilaterally - Expanded ENT Exam Nose exam: Present: sinus tenderness Throat exam: Present: other (thick PND) - Neck Neck exam: Absent: lymphadenopathy - Chest Chest inspection: Present: normal inspection, symmetric chest wall rise - Respiratory Respiratory exam: Present: normal lung sounds bilaterally - Cardiovascular Cardiovascular exam: Present: regular rate, normal rhythm - Neurological Exam Neurological exam: Present: alert, oriented X3 - Psychiatric Psychiatric exam: Present: normal affect, normal mood - Skin Skin exam: Present: warm, dry, intact
[2021-05-16 18:05] LABS: UTC Strep Screen (Rapid) Negative (Negative)
[2021-05-16 18:18] VITALS: BP 140/93; PULSE 86; RESP 16; TEMP 36.8
== END 2021-05-16 18:17 | disposition home or self-care (01) ==
PROVIDERS: Emergency Provider Physician Assistant; PCP Emergency Medicine
DX: J01.90 Acute sinusitis, unspecified (principal); K21.9 Gastro-esophageal reflux disease without esophagitis; I10 Essential (primary) hypertension
CPT/HCPCS: 87880; 99202; G0463

== ENCOUNTER 2021-06-12 09:00 | Emergency (ER) | payer MEDICAID, SELFPAY ==
[2021-06-12 09:00] VITALS: BP 123/61; PULSE 98; RESP 19; TEMP 36.7; O2SAT 99; BMI 39.1
--- NOTE | 2021-06-12 09:28 | HMH.EDUTC ---
[facility] [place] Disposition Clinical Impression: Sore throat (viral) Disposition: Home, Self-Care Condition on Discharge: Good Instructions: Sore Throat, DI for Nausea -- Adult Additional Instructions: *Monitor Temp, Over the counter Motrin or Tylenol as directed/as needed Tylenol every 4 hours and Motrin every 6 hours (as long as your family doctor has told you that you can take it) for fever or pain. and straight to ER if unable to lower temp less than 101.0 after medication given *Warm salt water gargles may help to soothe the throat *Throat Lozenges *Warm fluids like tea with honey may help to soothe the throat *Sleep elevated *Humidifier/Vaporizer *If you did not take Penicillin shot or was unable to, start taking antibiotic immediately and make sure that you take it for the FULL length of time although you should start to feel better in 24-48 hours *change toothbrush and toothpaste 24-48 hours after starting to take antibiotics so you do not reinfect yourself Monitor Temp. Tylenol and/or Ibuprofen as needed. ER if fever is no less than 101 despite alternating Tylenol and Ibuprofen * Encourage fluids, water, Gatorade, powerade, pedialyte if /toddler/or child *Cold fluids, popsicles and ice cream may feel good on his throat Follow up IMMEDIATELY for new or worsening symptoms or no Noticeable improvement over the next 48-72 hours. 911 for difficulty breathing or swallowing Referrals: Thomas Mehta MD [Primary Care Provider] - As needed Time of Disposition: 09:37 Medical Decision Making - Sujit Inquiry Pt receiving controlled substance: No Sujit was queried for this patient: No Vital Signs: 06/12/21 09:00 Temperature 98.1 F Temperature Source Oral Pulse Rate [Right Brachial] 98 H Respiratory Rate 19 Blood Pressure [Right Arm] 123/61 Blood Pressure Mean [Right Arm] 81 Blood Pressure Source [Right Arm] Automatic Cuff Blood Pressure Position [Right Arm] Sitting 02 Sat by Pulse Oximetry 99 Oxygen Delivery Method Room Air - Lab Data Lab results reviewed: Yes: I reviewed the patient's lab results. Lab Results 06/12/21 09:07: Strep Scn Rapid Clinic Negative Orders (Tests/Meds): ORDERS Category Date Time Status Strep Screen Confirmation Stat Micro 06/12/21 09:07 Received [facility] [place] HPI - General Stated complaint: possible strep Time Seen by Provider: 06/12/21 09:29 Mode of Arrival: Ambulatory Source of Information: Patient Limitations: No Limitations Description of Symptoms (Recalled from Triage Doc. 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 and feels like she may have it now too - Related Data Home Medications Medication Instructions Recorded Confirmed Trazodone HCl 50 mg PO HS 12/03/20 06/12/21 Previous Rx's Medication Instructions Recorded pantoprazole 40 mg tablet,delayed 40 mg PO DAILY #90 tab 04/02/21 release lisinopril 10 mg tablet 10 mg PO DAILY #90 tab 04/09/21 Allergies Allergy/AdvReac Type Severity Reaction Status Date / Time No Known Allergies Allergy Verified 12/03/20 10:44 - Worker's Comp Is this a Worker's Comp case?: No [facility] History - Hepatitis A Screen Drug use history?: No High risk sexual behaviors?: No History of sexually transmitted infection?: No Currently employed?: No Childcare worker?: No Do you have indoor plumbing?: Yes Do you have electricity?: Yes Attestation statement:: This patient has been screened for Hepatitis A risk factors. I have reviewed the patient's pas
[2021-06-12 09:32] LABS: UTC Strep Screen (Rapid) Negative (Negative)
[2021-06-12 09:43] VITALS: BP 123/61; PULSE 98; RESP 19; TEMP 36.7; O2SAT 99
== END 2021-06-12 09:51 | disposition home or self-care (01) ==
PROVIDERS: Emergency Provider Nurse Practitioner; PCP Emergency Medicine
DX: J02.9 Acute pharyngitis, unspecified (principal); I10 Essential (primary) hypertension; K21.9 Gastro-esophageal reflux disease without esophagitis
CPT/HCPCS: 87880; 99202; G0463

== ENCOUNTER 2021-06-18 15:15 | Emergency (ER) | payer MEDICAID, SELFPAY ==
[2021-06-18 15:57] VITALS: BP 143/84; PULSE 94; RESP 19; TEMP 36.6; O2SAT 99; BMI 41.5
--- NOTE | 2021-06-18 16:11 | HMH.EDUTC ---
[facility] [place] Disposition Clinical Impression: Acute bronchitis Qualifiers: Bronchitis organism: unspecified organism Qualified Code(s): J20.9 - Acute bronchitis, unspecified Otitis media Qualifiers: Otitis media type: unspecified Chronicity: acute Qualified Code(s): H66.90 - Otitis media, unspecified, unspecified ear Disposition: Home, Self-Care Condition on Discharge: Good Instructions: Middle Ear Infection, DI for Acute Bronchitis, Preventing the Spread of Coronavirus Discharge Instructions Additional Instructions: Drink plenty of fluids. Take tylenol or ibuprofen for pain or fever. Take the medications as directed. Follow up with your regular doctor. GO TO THE ER FOR ANY WORSENING SYMPTOMS Quarantine until you know the results of your covid-19 test. If it is positive, the health department should call you and give you further instructions about your length of Quarantine and other things. Notify your school or workplace of your results and follow their instructions regarding return to work/school. The cough medication (promethazine dm) will make you drowsy, so don't drive or operate heavy machinery after taking it. Start the antibiotics (azithromycin) today, don't start the oral steroids (medrol dose pack) until tomorrow. Prescriptions: Albuterol Sulfate [Albuterol Sulfate Hfa] 2 puffs IH Q6HP PRN 30 Days #1 each PRN Reason: Shortness Of Breath Transmission Status: Received by [facility] # Promethazine/Dextromethorphan [Promethazine-Dm Syrup] 5 ml PO Q6HP PRN #240 ml PRN Reason: Cough Transmission Status: Pending to [facility] # Benzonatate [Benzonatate 100mg cap] 100 mg PO TIDP PRN #30 cap PRN Reason: Cough Transmission Status: Pending to [facility] # methylPREDNISolone [Medrol] 4 mg PO DIRECTED 6 Days #21 packet Transmission Status: Pending to [facility] # Azithromycin [Z-Jam 250mg Tab*] 250 mg PO UD DOSE PK #6 tab Transmission Status: Pending to [facility] # Referrals: Thomas Mehta MD [Primary Care Provider] - Time of Disposition: 17:09 Medical Decision Making - Medical Records Medical records reviewed: No: I reviewed the patient's medical records. - Sujit Inquiry Pt receiving controlled substance: No Vital Signs: 06/18/21 15:57 06/18/21 17:04 Temperature 97.9 F 97.9 F Temperature Source Oral Pulse Rate 94 H Pulse Rate [Left] 94 H Respiratory Rate 19 19 Blood Pressure 143/84 H Blood Pressure [Right Arm] 143/84 H Blood Pressure Mean [Right Arm] 103 02 Sat by Pulse Oximetry 99 - Lab Data Lab results reviewed: Yes: I reviewed the patient's lab results. Orders (Tests/Meds): ED MEDICATIONS Discontinued Medications Generic Name Dose Route Start Last Admin Trade Name Freq PRN Reason Stop Dose Admin Albuterol/Ipratropium 3 ml 06/18/21 16:25 06/18/21 16:29 Ipratropium/Albuterol 3 Ml Neb IH 06/18/21 16:26 3 ml ONCE ONE Administration Methylprednisolone Sodium Succinate 125 mg 06/18/21 16:57 06/18/21 17:03 Methylprednisolone Sod Succ 125mg Vial IM 06/18/21 16:58 125 mg ONCE ONE Administration ORDERS Category Date Time Status Covid-19 Nasal PCR ([facility]) Routine Lab 06/18/21 16:57 Received [facility] [place] HPI - General Stated complaint: cough Time Seen by Provider: 06/18/21 16:11 Mode of Arrival: Ambulatory Source of Information: Patient Limitations: No Limitations Description of Symptoms (Recalled from Triage Doc. by RN): pt c/o a cough and L ear ache. pt states this has been ongoing since last week. HEENT Symptoms (Recalled from RN notes): Yes (L ear ache) Resp Symptoms (Recalled from RN notes): Yes (cough) Skin Symptoms (Recalled from RN notes): No MS Symptoms (Recalled from RN notes): No Functional Status (Recalled from RN notes): wnl - History of Present Illness Provider Complaint: She c/o cough, chest congestion, ear pain and sinus congesti
[2021-06-18 17:04] VITALS: BP 143/84; PULSE 94; RESP 19; TEMP 36.6
== END 2021-06-18 17:19 | disposition home or self-care (01) ==
PROVIDERS: Emergency Provider Nurse Practitioner Family; PCP Emergency Medicine
DX: J20.9 Acute bronchitis, unspecified (principal); H66.93 Otitis media, unspecified, bilateral; I10 Essential (primary) hypertension; K21.9 Gastro-esophageal reflux disease without esophagitis
CPT/HCPCS: 96372; 99202; C9803; G0463; U0003; U0005

== ENCOUNTER → 2021-08-05 17:38 | Outpatient (CLI) | payer MEDICAID, SELFPAY | PROVIDERS: Visit Provider Nurse Practitioner | DX: Z20.822 Contact with and (suspected) exposure to COVID-19 (principal) | CPT/HCPCS: C9803; U0003; U0005 ==

== ENCOUNTER → 2021-08-19 10:45 | Outpatient (CLI) | payer MEDICAID, SELFPAY | PROVIDERS: PCP Emergency Medicine; Visit Provider Nurse Practitioner | DX: Z20.822 Contact with and (suspected) exposure to COVID-19 (principal) | CPT/HCPCS: C9803; U0003; U0005 ==

== ENCOUNTER 2021-10-05 15:21 | Emergency (ER) | payer MEDICAID, SELFPAY ==
[2021-10-05 16:31] VITALS: BP 138/82; PULSE 96; RESP 16; TEMP 36.6; O2SAT 100; BMI 41.1
[2021-10-05 16:33] LABS: UTC Influenza A Antigen Negative (Negative); UTC Influenza B Antigen Negative (Negative); UTC Pregnancy Test, Urine Negative (Negative)
--- NOTE | 2021-10-05 16:58 | HMH.EDUTC ---
[facility] [place] Disposition Clinical Impression: Nausea vomiting and diarrhea Disposition: Home, Self-Care Condition on Discharge: Good Instructions: Nausea and Vomiting-Adult, Diarrhea, Ondansetron Additional Instructions: Drink extra fluids with and between meals. If you have difficulty drinking, try very small amounts of water or suck on ice chips. ? Avoid fruit juices, as these do not replace minerals and can actually increase diarrhea. ? Children and adults can use sports drinks to replenish electrolytes. Younger children and infants should use products formulated for children, like oral rehydration solutions. ? Eat food in small amounts and let your stomach recover. ? Get lots of rest. You may feel tired or weak. ? No greasy or fried foods for the next 24-48 hours BRAT diet Bananas Rice Apples and [place] ? Make sure to drink plenty of liquids ? Return if needed ? Straight to ER if any life threatening symptoms ? Zofran as prescribed ? You was given an outpatient order for diarrhea panel, please collect specimen and bring back to outpatient lab then call back to the [facility] or follow up with family doctor for results ? Follow up with family doctor in the next 48-72 hours if no improvement or any worsening of symptoms Prescriptions: Ondansetron [Zofran 4mg ODT] 4 mg PO TIDP PRN #9 tab PRN Reason: Vomiting Transmission Status: Pending to [facility] #[id number] Referrals: Thomas Mehta MD [Primary Care Provider] - Forms: Work/School Release Medical Decision Making - Sujit Inquiry Pt receiving controlled substance: No Sujit was queried for this patient: No Vital Signs: 10/05/21 16:31 Temperature 98 F Temperature Source Oral Pulse Rate [Left] 96 H Respiratory Rate 16 Blood Pressure [Right Arm] 138/82 Blood Pressure Mean [Right Arm] 100 02 Sat by Pulse Oximetry 100 - Lab Data Lab Results 10/05/21 16:23: Influenza Type A Ag Negative, Influenza Type B Ag Negative 10/05/21 16:23: Tst Clinic Negative Medical Decision Narrative: Patient state that she has taken zofran in the past without complications or reactions [facility] [place] HPI - General Stated complaint: v/d, body aches Time Seen by Provider: 10/05/21 16:59 Mode of Arrival: Ambulatory Source of Information: Patient Limitations: No Limitations Description of Symptoms (Recalled from Triage Doc. by RN): pt c/o n/v/d and body aches since yesterday. 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 States that she has been having vomiting and diarrhea States that she hasnt been able to keep much down today so she came in to get something to help with the N/V - Related Data Home Medications Medication Instructions Recorded Confirmed Trazodone HCl 50 mg PO HS 12/03/20 06/12/21 Previous Rx's Medication Instructions Recorded lisinopril 10 mg tablet 10 mg PO DAILY #90 tab 04/09/21 Albuterol Sulfate [Albuterol 2 puffs IH Q6HP PRN 30 Days #1 each 06/18/21 Sulfate Hfa] Azithromycin [Z-Jam 250mg Tab*] 250 mg PO UD DOSE PK #6 tab 06/18/21 Benzonatate [Benzonatate 100mg 100 mg PO TIDP PRN #30 cap 06/18/21 cap] Promethazine/Dextromethorphan 5 ml PO Q6HP PRN #240 ml 06/18/21 [Promethazine-Dm Syrup] methylPREDNISolone [Medrol] 4 mg PO DIRECTED 6 Days #21 06/18/21 packet pantoprazole 40 mg tablet,delayed 40 mg PO DAILY #90 tab 07/15/21 release Ondansetron [Zofran 4mg ODT] 4 mg PO TIDP PRN #9 tab 10/05/21 Allergies Allergy/AdvReac Type Severity Reaction Status Date / Time No Known Allergies Allergy Verified 12/03/20 10:44 - Worker's Comp Is this a Worker's Comp case?: No [facility] History - He
[2021-10-05 17:29] VITALS: BP 138/82; PULSE 96; RESP 16; TEMP 36.6
== END 2021-10-05 17:32 | disposition home or self-care (01) ==
PROVIDERS: Emergency Provider Nurse Practitioner; PCP Emergency Medicine
DX: R11.2 Nausea with vomiting, unspecified (principal); R19.7 Diarrhea, unspecified; I10 Essential (primary) hypertension; K21.9 Gastro-esophageal reflux disease without esophagitis
CPT/HCPCS: 81025; 87804; 99212; G0463

== ENCOUNTER 2021-10-16 17:24 | Emergency (ER) | payer MEDICAID, SELFPAY ==
[2021-10-16 19:05] VITALS: BP 132/87; PULSE 80; RESP 21; TEMP 36.8; O2SAT 100; BMI 39.1
--- NOTE | 2021-10-16 19:32 | HMH.EDUTC ---
[facility] Disposition Clinical Impression: Nausea and vomiting Qualifiers: Vomiting type: unspecified Qualified Code(s): R11.2 - Nausea with vomiting, unspecified Disposition: Home, Self-Care Condition on Discharge: Good Instructions: Nausea and Vomiting-Adult Additional Instructions: Drink extra fluids with and between meals. If you have difficulty drinking, try very small amounts of water or suck on ice chips. ? Avoid fruit juices, as these do not replace minerals and can actually increase diarrhea. ? Children and adults can use sports drinks to replenish electrolytes. Younger children and infants should use products formulated for children, like oral rehydration solutions. ? Eat food in small amounts and let your stomach recover. ? Get lots of rest. You may feel tired or weak. ? No greasy or fried foods for the next 24-48 hours BRAT diet Bananas Rice Apples and [place] ? Make sure to drink plenty of liquids ? Return if needed ? Straight to ER if any life threatening symptoms ? Zofran as prescribed ? Follow up with family doctor in the next 48-72 hours if no improvement or any worsening of symptoms Prescriptions: Ondansetron [Zofran 4mg ODT] 4 mg PO TIDP PRN #10 tab PRN Reason: Nausea Transmission Status: Pending to [facility] #[id number] Referrals: Thomas Mehta MD [Primary Care Provider] - As needed Forms: Work/School Release Time of Disposition: 20:00 Medical Decision Making - Sujit Inquiry Pt receiving controlled substance: No Sujit was queried for this patient: No Vital Signs: 10/16/21 19:05 10/16/21 19:56 Temperature 98.2 F 98.2 F Temperature Source Oral Pulse Rate 80 Pulse Rate [Right Brachial] 80 Respiratory Rate 21 21 Blood Pressure 132/87 Blood Pressure [Right Arm] 132/87 Blood Pressure Mean [Right Arm] 102 Blood Pressure Source [Right Arm] Automatic Cuff Blood Pressure Position [Right Arm] Sitting 02 Sat by Pulse Oximetry 100 Oxygen Delivery Method Room Air Orders (Tests/Meds): ED MEDICATIONS Discontinued Medications Generic Name Dose Route Start Last Admin Trade Name Freq PRN Reason Stop Dose Admin Ondansetron HCl 4 mg 10/16/21 19:33 10/16/21 19:47 Ondansetron 4mg Odt SL 10/16/21 19:34 4 mg ONCE ONE Administration Medical Decision Narrative: Patient states that she just got off her period and denies chance of [facility] HPI - General Stated complaint: ZHAO Vomiting Abd pain Time Seen by Provider: 10/16/21 19:32 Mode of Arrival: Ambulatory Source of Information: Patient Limitations: No Limitations Description of Symptoms (Recalled from Triage Doc. by RN): PATIENT C/O VOMITING, HEADACHE, AND STOMACH ACHE SINCE THIS MORNING HEENT Symptoms (Recalled from RN notes): No Resp Symptoms (Recalled from RN notes): No Skin Symptoms (Recalled from RN notes): No MS Symptoms (Recalled from RN notes): No Functional Status (Recalled from RN notes): WNL - History of Present Illness Provider Complaint: Patient state that she started feeling bad this morning with N/V and upset stomach States that she has vomited about 3 times since lunch and feeling nausous now States that she has been afraid to eat anything so she came in to get checked denies ABD pain at this time - Related Data Home Medications Medication Instructions Recorded Confirmed Trazodone HCl 50 mg PO HS 12/03/20 10/16/21 methylPREDNISolone See Rx Instructions PO PER PKG DIR 10/16/21 10/16/21 [Methylprednisolone] Previous Rx's Medication Instructions Recorded Albuterol Sulfate [Albuterol 2 puffs IH Q6HP PRN 30 Days #1 each 06/18/21 Sulfate Hfa] lisinopril 10 mg tablet 10 mg PO DAILY #30 tab 10/06/21 pantoprazole 40 mg tablet,delayed 40 mg PO DAILY #30 tab 10/06/21 release Ondansetron [Zofran 4mg ODT] 4 mg PO TIDP PRN #10 tab 10/16/21 Allergies Allergy/AdvReac Type Severity Reaction Status Date / Time No Known Allergies Allergy Verified 10/14/21 09:55
[2021-10-16 19:56] VITALS: BP 132/87; PULSE 80; RESP 21; TEMP 36.8; O2SAT 100
== END 2021-10-16 20:05 | disposition home or self-care (01) ==
PROVIDERS: Emergency Provider Nurse Practitioner; PCP Emergency Medicine
DX: R11.2 Nausea with vomiting, unspecified (principal); R10.9 Unspecified abdominal pain; R51.9 Headache, unspecified; I10 Essential (primary) hypertension; K21.9 Gastro-esophageal reflux disease without esophagitis; Z79.51 Long term (current) use of inhaled steroids; Z79.52 Long term (current) use of systemic steroids; Z79.899 Other long term (current) drug therapy; Z80.9 Family history of malignant neoplasm, unspecified
CPT/HCPCS: 99213; G0463

== ENCOUNTER 2022-01-10 12:31 | Emergency (ER) | payer MEDICAID, SELFPAY ==
[2022-01-10 12:47] VITALS: BP 131/69; PULSE 78; RESP 17; TEMP 36.7; O2SAT 96; BMI 40.0
--- NOTE | 2022-01-10 12:51 | HMH.EDUTC ---
[facility] [place] Disposition Clinical Impression: Viral syndrome Pharyngitis Qualifiers: Pharyngitis/tonsillitis etiology: unspecified etiology Qualified Code(s): J02.9 - Acute pharyngitis, unspecified Disposition: Home, Self-Care Condition on Discharge: Good Instructions: DI for Pharyngitis/Tonsillopharyngitis -- Adult, DI for COVID-19 (Suspected or Confirmed ), Preventing the Spread of Coronavirus Discharge Instructions Additional Instructions: Drink plenty of fluids. Take tylenol or ibuprofen for pain or fever. Take the medications as directed. Follow up with your regular doctor. GO TO THE ER FOR ANY WORSENING SYMPTOMS Quarantine until you know the results of your covid-19 test. Notify your school or workplace of your results and follow their instructions regarding return to work/school. Prescriptions: Brompheniramine/Pseudoephed/Dm [Bromfed Dm Cough Syrup] 5 ml PO Q6HP PRN #240 ml PRN Reason: Cough Transmission Status: Received by [facility] # methylPREDNISolone [Medrol] 4 mg PO DIRECTED 6 Days #21 packet Transmission Status: Received by [facility] # Azithromycin [Z-Jam 250mg Tab*] 250 mg PO UD DOSE PK #6 tab Transmission Status: Received by [facility] # Referrals: Thomas Mehta MD [Primary Care Provider] - Forms: Work/School Release Time of Disposition: 13:34 Medical Decision Making - Medical Records Medical records reviewed: No: I reviewed the patient's medical records. - Sujit Inquiry Pt receiving controlled substance: No Vital Signs: 01/10/22 12:47 01/10/22 13:48 Temperature 98.0 F 98.0 F Temperature Source Oral Pulse Rate 78 Pulse Rate [Left Radial] 78 Respiratory Rate 17 17 Blood Pressure 131/69 Blood Pressure [Right Arm] 131/69 Blood Pressure Mean [Right Arm] 89 02 Sat by Pulse Oximetry 96 - Lab Data Lab results reviewed: Yes: I reviewed the patient's lab results. Lab Results 01/10/22 12:46: Group A Strep Rapid Negative Orders (Tests/Meds): ORDERS Category Date Time Status Strep Screen Confirmation Stat Micro 01/10/22 12:46 Received [facility] [place] HPI - General Stated complaint: sore throat, chest congestion, fever Time Seen by Provider: 01/10/22 12:51 Description of Symptoms (Recalled from Triage Doc. by RN): patient comes in today with complaints of cough, sore throat. symptoms began wednesday HEENT Symptoms (Recalled from RN notes): Yes Resp Symptoms (Recalled from RN notes): Yes Skin Symptoms (Recalled from RN notes): No MS Symptoms (Recalled from RN notes): No Functional Status (Recalled from RN notes): wnl - History of Present Illness Provider Complaint: She states that for the past 3 days she has had a sore throat and a cough. - Related Data Home Medications Medication Instructions Recorded Confirmed Trazodone HCl 50 mg PO HS 12/03/20 01/10/22 Previous Rx's Medication Instructions Recorded Albuterol Sulfate [Albuterol 2 puffs IH Q6HP PRN 30 Days #1 each 06/18/21 Sulfate Hfa] lisinopril 10 mg tablet 10 mg PO DAILY #30 tab 10/06/21 pantoprazole 40 mg tablet,delayed 40 mg PO DAILY #30 tab 10/06/21 release Azithromycin [Z-Jam 250mg Tab*] 250 mg PO UD DOSE PK #6 tab 01/10/22 Brompheniramine/Pseudoephed/Dm 5 ml PO Q6HP PRN #240 ml 01/10/22 [Bromfed Dm Cough Syrup] methylPREDNISolone [Medrol] 4 mg PO DIRECTED 6 Days #21 01/10/22 packet Allergies Allergy/AdvReac Type Severity Reaction Status Date / Time No Known Allergies Allergy Verified 01/10/22 12:50 - Worker's Comp Is this a Worker's Comp case?: No [facility] History - Hepatitis A Screen Attestation statement:: This patient has been screened for Hepatitis A risk factors. I have reviewed the patient's past medical history: Yes Medical History: Reports:: Gastroesophageal Reflux Disease(GERD), Hypertension Denies:: Cancer, Diabetes Mellitus Type 1, Diabetes Mellitus Type 2, Internal Pacemaker, Lung Dise
[2022-01-10 13:34] LABS: Strep Scrn Group A (Rapid) Negative (Negative)
[2022-01-10 13:48] VITALS: BP 131/69; PULSE 78; RESP 17; TEMP 36.7
== END 2022-01-10 13:49 | disposition home or self-care (01) ==
PROVIDERS: Emergency Provider Nurse Practitioner Family; PCP Emergency Medicine
DX: J02.9 Acute pharyngitis, unspecified (principal); I10 Essential (primary) hypertension; K21.9 Gastro-esophageal reflux disease without esophagitis; Z79.899 Other long term (current) drug therapy; Z79.51 Long term (current) use of inhaled steroids; Z82.49 Family history of ischemic heart disease and other diseases of the circulatory system; Z80.9 Family history of malignant neoplasm, unspecified
CPT/HCPCS: 87430; 99213; C9803; G0463; U0003; U0005

== ENCOUNTER 2022-03-17 10:14 | Emergency (ER) | payer MEDICAID, SELFPAY ==
--- NOTE | 2022-03-17 10:30 | HMH.EDUTC ---
[facility] [place] Disposition Clinical Impression: Strep throat Disposition: Home, Self-Care Condition on Discharge: Good Instructions: DI for Strep Throat, Strep Throat Additional Instructions: Drink plenty of fluids. Take tylenol or ibuprofen for pain or fever. Take the medications as directed. Follow up with your regular doctor. GO TO THE ER FOR ANY WORSENING SYMPTOMS Throw your tooth brush away and get a new one. Prescriptions: Ondansetron [Zofran 4mg ODT] 4 mg PO Q8HP PRN #20 tab PRN Reason: Nausea Transmission Status: Pending to [facility] # Amoxicillin [Amoxicillin 500mg Tab] 500 mg PO TID 10 Days #30 tab Transmission Status: Pending to [facility] # methylPREDNISolone [Medrol] 4 mg PO DIRECTED 6 Days #21 packet Transmission Status: Pending to [facility] # Referrals: Thomas Mehta MD [Primary Care Provider] - Forms: Work/School Release Time of Disposition: 10:55 Medical Decision Making - Medical Records Medical records reviewed: No: I reviewed the patient's medical records. - Sujit Inquiry Pt receiving controlled substance: No Vital Signs: 03/17/22 10:40 Temperature 98.3 F Temperature Source Oral Pulse Rate [Left] 86 Respiratory Rate 17 Blood Pressure [Right Arm] 129/72 Blood Pressure Mean [Right Arm] 91 02 Sat by Pulse Oximetry 99 - Lab Data Lab results reviewed: Yes: I reviewed the patient's lab results. Lab Results 03/17/22 10:35: Strep Scn Rapid Clinic Negative Orders (Tests/Meds): ORDERS Category Date Time Status Strep Screen Confirmation Stat Micro 03/17/22 10:[address] [facility] [place] HPI - General Stated complaint: Bodyaches, sore throat Time Seen by Provider: 03/17/22 10:31 - History of Present Illness Provider Complaint: She c/o sore throat and feeling bad for the past 2 days. she has had n/v and a low grade fever. - Related Data Home Medications Medication Instructions Recorded Confirmed Trazodone HCl 50 mg PO HS 12/03/20 01/10/22 Previous Rx's Medication Instructions Recorded Albuterol Sulfate [Albuterol 2 puffs IH Q6HP PRN 30 Days #1 each 06/18/21 Sulfate Hfa] Azithromycin [Z-Jam 250mg Tab*] 250 mg PO UD DOSE PK #6 tab 01/10/22 Brompheniramine/Pseudoephed/Dm 5 ml PO Q6HP PRN #240 ml 01/10/22 [Bromfed Dm Cough Syrup] methylPREDNISolone [Medrol] 4 mg PO DIRECTED 6 Days #21 01/10/22 packet lisinopril 10 mg tablet 10 mg PO DAILY #30 tab 02/24/22 pantoprazole 40 mg tablet,delayed 40 mg PO DAILY #30 tab 02/24/22 release fluconazole 150 mg tablet 150 mg PO Q3D 0 Days #2 tab 02/25/22 Amoxicillin [Amoxicillin 500mg Tab] 500 mg PO TID 10 Days #30 tab 03/17/22 Ondansetron [Zofran 4mg ODT] 4 mg PO Q8HP PRN #20 tab 03/17/22 methylPREDNISolone [Medrol] 4 mg PO DIRECTED 6 Days #21 03/17/22 packet Allergies Allergy/AdvReac Type Severity Reaction Status Date / Time No Known Allergies Allergy Verified 03/17/22 10:42 [facility] History - Hepatitis A Screen Attestation statement:: This patient has been screened for Hepatitis A risk factors. I have reviewed the patient's past medical history: Yes Medical History: Reports:: Gastroesophageal Reflux Disease(GERD), Hypertension Denies:: Cancer, Diabetes Mellitus Type 1, Diabetes Mellitus Type 2, Internal Pacemaker, Lung Disease, MRSA, Seizures Other Surgeries: Yes: , EGD, Other (wisdom teeth removed). No: Pacemaker Amputation: No Fractures: No - Social History Smoking Status: Never smoker Alcohol Intake: never Substance Use Type: denies use Occupational Status: employed Family Hx:: Heart Attack, Hypertension, Cancer ROS Obtained: Yes All systems reviewed & no additional complaints - Constitutional Constitutional: Reports as per HPI - Eyes Eyes: Denies eye discharge - ENT Ears, Nose, Mouth, and Throat: Reports as per HPI - Cardiovascular Cardiovascular: Denies chest pain Physical Exam - G
[2022-03-17 10:40] VITALS: BP 129/72; PULSE 86; RESP 17; TEMP 36.8; O2SAT 99; BMI 41.8
[2022-03-17 10:51] LABS: UTC Strep Screen (Rapid) Negative (Negative)
[2022-03-17 10:59] VITALS: BP 129/72; PULSE 86; RESP 17; TEMP 36.8
== END 2022-03-17 11:08 | disposition home or self-care (01) ==
PROVIDERS: Emergency Provider Nurse Practitioner Family; PCP Emergency Medicine
DX: J02.0 Streptococcal pharyngitis (principal)
CPT/HCPCS: 87880; 99212; G0463

== ENCOUNTER 2022-03-30 13:09 | Emergency (ER) | payer MEDICAID, SELFPAY ==
--- NOTE | 2022-03-30 13:56 | EXP.UTC ---
Discharge Plan Disposition Patient Disposition: Home, Self-Care Condition: Good Prescriptions Prescriptions: New cefdinir 300 mg capsule 300 mg PO BID Qty: 20 0RF No Action pantoprazole 40 mg tablet,delayed release (DR/EC) See Rx Instructions .ROUTE .COMPLEX Qty: 30 0RF Dose Instruction: TAKE 1 TABLET BY MOUTH DAILY FOR GERD Rx Instructions: TAKE 1 TABLET BY MOUTH DAILY FOR GERD lisinopril 10 mg tablet See Rx Instructions .ROUTE .COMPLEX Qty: 30 0RF Dose Instruction: TAKE 1 TABLET BY MOUTH DAILY FOR HIGH BLOOD PRESSURE Rx Instructions: TAKE 1 TABLET BY MOUTH DAILY FOR HIGH BLOOD PRESSURE fluconazole [Diflucan] 150 mg tablet 150 mg PO Q3D 0 Days Qty: 2 0RF Rx Instructions: may repeat second dose 72 hrs after first dose if symptoms persist azithromycin 250 MG tablet 250 mg PO UD DOSE PK Qty: 6 0RF Rx Instructions: Take two (2) tablets today, then one (1) tablet days #2 thru #5 methylprednisolone 4 MG tablets,dose pack 4 mg PO DIRECTED 6 Days Qty: 21 0RF pbpemipommfjizy-hgqyondho-WH 118 ML syrup 5 ml PO Q6HP PRN (Reason: Cough) Qty: 240 0RF amoxicillin 500 MG tablet 500 mg PO TID 10 Days Qty: 30 0RF methylprednisolone 4 MG tablets,dose pack 4 mg PO DIRECTED 6 Days Qty: 21 0RF ondansetron 4 MG tablet,disintegrating 4 mg PO Q8HP PRN (Reason: Nausea) Qty: 20 0RF trazodone 50 MG tablet 50 mg PO HS albuterol sulfate 8.5 GM HFA aerosol inhaler 2 puffs IH Q6HP PRN (Reason: Shortness Of Breath) 30 Days Qty: 1 5RF Referrals Follow up/Referrals: Thomas Mehta MD [Primary Care Provider] - See instructions Activity Restrictions/Add. Instructions Additional Instructions/Restrictions: Drink plenty of fluids. Take tylenol or ibuprofen for pain or fever. Take the medications as directed. Follow up with your regular doctor. GO TO THE ER FOR ANY WORSENING SYMPTOMS Clinical Impressions Clinical Impression: Strep throat Stand Alone Forms Stand Alone Forms: Work/School Release Instructions Patient Instructions: Strep Throat Discharge ED Provider: Yousuf Alicia [facility] General Stated complaint: body aches, fever, ZHAO, diarrhea Time Seen by Provider: 03/30/22 13:55 History of Present Illness Provider Complaint: She states that she has had a sore throat for the past 1 day. She recently had strep throat and recovered with medication. She finished the antibiotics about 5 days ago. She states that she feels like she did when she had strep throat. Related Data Home Medications Medication Instructions Recorded Confirmed trazodone 50 mg tablet 50 mg PO HS Insomnia 12/03/20 01/10/22 Previous Rx's Medication Instructions Recorded albuterol sulfate 90 mcg/actuation 2 puffs IH Q6HP PRN Shortness Of 06/18/21 aerosol inhaler Breath 30 days #1 ea azithromycin 250 mg tablet 250 mg PO UD DOSE PK #6 tabs 01/10/22 gfzalacpppmpyly-kqvmeatsoydhtkt-PU 5 ml PO Q6HP PRN Cough #240 mL 01/10/22 2 mg-30 mg-10 mg/5 mL oral syrup methylprednisolone 4 mg tablets in 4 mg PO DIRECTED 6 days #21 01/10/22 a dose pack packets amoxicillin 500 mg tablet 500 mg PO TID 10 days #30 tabs 03/17/22 methylprednisolone 4 mg tablets in 4 mg PO DIRECTED 6 days #21 03/17/22 a dose pack packets ondansetron 4 mg disintegrating 4 mg PO Q8HP PRN Nausea #20 tabs 03/17/22 tablet fluconazole 150 mg tablet 150 mg PO Q3D 2 doses #2 tabs 03/27/22 (Diflucan) lisinopril 10 mg tablet See Rx Instructions .Route 03/27/22 .COMPLEX #30 tabs pantoprazole 40 mg tablet,delayed See Rx Instructions .Route 03/27/22 release .COMPLEX #30 tabs cefdinir 300 mg capsule 300 mg PO BID #20 caps 03/30/22 Allergies Allergy/AdvReac Type Severity Reaction Status Date / Time No Known Allergies Allergy Verified 03/30/22 14:09 PFSH PFS Social History Smoking Status: Never smoker a
[2022-03-30 14:05] VITALS: BP 128/73; PULSE 117; RESP 17; TEMP 37.8; O2SAT 98; BMI 41.5
[2022-03-30 14:08] LABS: UTC Strep Screen (Rapid) Negative (Negative)
[2022-03-30 14:43] VITALS: BP 128/73; PULSE 96; RESP 17; TEMP 37.2
== END 2022-03-30 14:44 | disposition home or self-care (01) ==
PROVIDERS: Emergency Provider Nurse Practitioner Family; PCP Emergency Medicine
DX: R52 Pain, unspecified (principal); R50.9 Fever, unspecified; R51.9 Headache, unspecified
CPT/HCPCS: 87880; 99212; G0463

== ENCOUNTER 2022-06-22 11:52 | Emergency (ER) | payer MEDICAID, SELFPAY ==
--- NOTE | 2022-06-22 13:42 | EXP.UTC ---
Discharge Plan Disposition Patient Disposition: Home, Self-Care Condition: Good Prescriptions Prescriptions: New azithromycin [Zithromax] 250 mg tablet 250 mg PO UD DOSE PK Qty: 6 0RF Rx Instructions: Take two (2) tablets today, then one (1) tablet days #2 thru #5 benzonatate [benzonatate] 100 mg capsule 100 mg PO TIDP PRN (Reason: Cough) Qty: 30 0RF methylprednisolone 4 mg Tablets,Dose Pack 4 mg PO DIRECTED Qty: 21 0RF Discontinued fluconazole [Diflucan] 150 mg tablet 150 mg PO Q3D 0 Days Qty: 2 0RF Rx Instructions: may repeat second dose 72 hrs after first dose if symptoms persist azithromycin 250 MG tablet 250 mg PO UD DOSE PK Qty: 6 0RF Rx Instructions: Take two (2) tablets today, then one (1) tablet days #2 thru #5 pugrrkgrvjirqzs-geljegkao-OX 118 ML syrup 5 ml PO Q6HP PRN (Reason: Cough) Qty: 240 0RF amoxicillin 500 MG tablet 500 mg PO TID 10 Days Qty: 30 0RF methylprednisolone 4 MG tablets,dose pack 4 mg PO DIRECTED 6 Days Qty: 21 0RF ondansetron 4 MG tablet,disintegrating 4 mg PO Q8HP PRN (Reason: Nausea) Qty: 20 0RF cefdinir 300 mg capsule 300 mg PO BID Qty: 20 0RF No Action pantoprazole 40 mg tablet,delayed release (DR/EC) See Rx Instructions .ROUTE .COMPLEX Qty: 30 0RF Dose Instruction: TAKE 1 TABLET BY MOUTH DAILY FOR GERD Rx Instructions: TAKE 1 TABLET BY MOUTH DAILY FOR GERD lisinopril 10 mg tablet See Rx Instructions .ROUTE .COMPLEX Qty: 30 0RF Dose Instruction: TAKE 1 TABLET BY MOUTH DAILY FOR HIGH BLOOD PRESSURE Rx Instructions: TAKE 1 TABLET BY MOUTH DAILY FOR HIGH BLOOD PRESSURE methylprednisolone 4 MG tablets,dose pack 4 mg PO DIRECTED 6 Days Qty: 21 0RF trazodone 50 MG tablet 50 mg PO HS albuterol sulfate 8.5 GM HFA aerosol inhaler 2 puffs IH Q6HP PRN (Reason: Shortness Of Breath) 30 Days Qty: 1 5RF Referrals Follow up/Referrals: Thomas Mehta MD [Primary Care Provider] - See instructions Activity Restrictions/Add. Instructions Additional Instructions/Restrictions: Drink plenty of fluids. Take tylenol or ibuprofen for pain or fever. Take the medications as directed. Follow up with your regular doctor. GO TO THE ER FOR ANY WORSENING SYMPTOMS Clinical Impressions Clinical Impression: Pharyngitis, Viral syndrome Stand Alone Forms Stand Alone Forms: Work/School Release Instructions Patient Instructions: DI for Pharyngitis/Tonsillopharyngitis -- Adult, DI for Viral Syndrome Discharge ED Provider: Yousuf Alicia [facility] [place] HPI General Stated complaint: Earache in both ears,Headache,Cough Time Seen by Provider: 06/22/22 13:42 History of Present Illness Provider Complaint: She states that for the past 2 days she has had sore throat, ear pain and she has felt bad. Related Data Home Medications Medication Instructions Recorded Confirmed trazodone 50 mg tablet 50 mg PO HS Insomnia 12/03/20 01/10/22 Previous Rx's Medication Instructions Recorded albuterol sulfate 90 mcg/actuation 2 puffs IH Q6HP PRN Shortness Of 06/18/21 aerosol inhaler Breath 30 days #1 ea methylprednisolone 4 mg tablets in 4 mg PO DIRECTED 6 days #21 01/10/22 a dose pack packets azithromycin 250 mg tablet 250 mg PO UD DOSE PK #6 tabs 06/22/22 (Zithromax) benzonatate 100 mg capsule 100 mg PO TIDP PRN Cough #30 caps 06/22/22 lisinopril 10 mg tablet See Rx Instructions .Route 06/22/22 .COMPLEX #30 tabs methylprednisolone 4 mg tablets in 4 mg PO DIRECTED #21 tabs 06/22/22 a dose pack pantoprazole 40 mg tablet,delayed See Rx Instructions .Route 06/22/22 release .COMPLEX #30 tabs Allergies Allergy/AdvReac Type Severity Reaction Status Date / Time No Known Allergies Allergy Verified 06/22/22 14:05 [facility] Social History Smoking Status: Never smoker alcohol intake: never subst
[2022-06-22 13:53] VITALS: BP 118/77; PULSE 77; RESP 18; TEMP 36.6; O2SAT 96; BMI 41.2
[2022-06-22 14:15] LABS: UTC Influenza A Antigen Negative (Negative); UTC Influenza B Antigen Negative (Negative); UTC Strep Screen (Rapid) Negative (Negative)
[2022-06-22 14:23] VITALS: BP 118/77; PULSE 77; RESP 18; TEMP 36.6
[2022-06-22 14:29] LABS: Adenovirus,PCR Not Detected (NotDetected); Bordetella Pertussis Not Detected (NotDetected); Chlamydophila Pneumoniae, PCR Not Detected (NotDetected); Coronavirus 19, PCR Not Detected (NotDetected); Coronavirus 229E Not Detected (NotDetected); Coronavirus NL63 Not Detected (NotDetected); Coronavirus OC43 Not Detected (NotDetected); Coronovirus HKU1,PCR Not Detected (NotDetected); Human Metapneumovirus Not Detected (NotDetected); Influenza A, PCR Not Detected (NotDetected); Influenza AH1, 2009 Not Detected (NotDetected); Influenza AH1, PCR Not Detected (NotDetected); Influenza AH3,PCR Not Detected (NotDetected); Influenza B, PCR Not Detected (NotDetected); Mycoplasma Pneumoniae, PCR Not Detected (NotDetected); Parainfluenza 1, PCR Not Detected (NotDetected); Parainfluenza 2, PCR Not Detected (NotDetected); Parainfluenza 3, PCR Not Detected (NotDetected); Parainfluenza 4, PCR Not Detected (NotDetected); Respiratory Syncytial Virus Not Detected (NotDetected); Rhinovirus/Enterovirus Not Detected (NotDetected)
== END 2022-06-22 14:26 | disposition home or self-care (01) ==
PROVIDERS: Emergency Provider Nurse Practitioner Family; PCP Emergency Medicine
DX: J02.9 Acute pharyngitis, unspecified (principal); B34.9 Viral infection, unspecified
CPT/HCPCS: 87581; 87632; 87798; 87804; 87880; 99212; C9803; G0463; U0003; U0005

== ENCOUNTER → 2022-09-17 22:45 | Outpatient (CLI) | payer MEDICAID, SELFPAY | PROVIDERS: PCP Student in an Organized Health Care Education/Training Program; Visit Provider Student in an Organized Health Care Education/Training Program | DX: Z20.822 Contact with and (suspected) exposure to COVID-19 (principal); J02.9 Acute pharyngitis, unspecified | CPT/HCPCS: 87070; C9803; U0003; U0005 ==

== ENCOUNTER 2022-09-28 07:58 | Emergency (ER) | payer MEDICAID, SELFPAY ==
[2022-09-28 08:10] VITALS: BP 132/63; PULSE 81; RESP 20; TEMP 36.7; O2SAT 96; BMI 41.5
[2022-09-28 08:21] LABS: UTC Strep Screen (Rapid) Positive (Negative)
--- NOTE | 2022-09-28 08:22 | EXP.UTC ---
Discharge Plan Disposition Patient Disposition: Home, Self-Care Condition: Good Prescriptions Prescriptions: New amoxicillin 875 mg tablet 875 mg PO Q12H Qty: 20 0RF No Action trazodone 50 MG tablet 50 mg PO HS pantoprazole 40 mg tablet,delayed release (DR/EC) See Rx Instructions .ROUTE .COMPLEX Rx Instructions: TAKE 1 TABLET BY MOUTH DAILY FOR GERD lisinopril 10 mg tablet See Rx Instructions .ROUTE .COMPLEX Rx Instructions: TAKE 1 TABLET BY MOUTH DAILY FOR HIGH BLOOD PRESSURE Referrals Follow up/Referrals: Thomas Mehta MD [Primary Care Provider] - See instructions Activity Restrictions/Add. Instructions Additional Instructions/Restrictions: *Monitor Temp, Over the counter Motrin or Tylenol as directed/as needed Tylenol every 4 hours and Motrin every 6 hours (as long as your family doctor has told you that you can take it) for fever or pain. and straight to ER if unable to lower temp less than 101.0 after medication given *Warm salt water gargles may help to soothe the throat *Throat Lozenges? *Warm fluids like tea with honey may help to soothe the throat? *Sleep elevated *Humidifier/Vaporizer *Flonase 2 sprays in each nostril daily but be aware that it may take 2-3 days before you notice improvement *Bromfed may cause drowsiness. Know how it effects you (your child) before driving, caring for small child, or sending your child to school. Not other antihistamines/allergy medications while taking bromfed Your throat swab was sent for culture. Those results are typically sent to your primary care. Be sure to follow up in 2-3 days with your family doctor/primary care physician if no improvement so they can review those result and treat if necessary. If you don?t have a primary care doctor, I recommend you get one but in the mean time, you will have to return to a walk in clinic Follow up IMMEDIATELY for new or worsening symptoms or no Noticeable improvement over the next 48-72 hours. 911 for difficulty breathing or swallowing Clinical Impressions Clinical Impression: Strep throat Stand Alone Forms Stand Alone Forms: Work/School Release Instructions Patient Instructions: Strep Throat, DI for Strep Throat Discharge ED Provider: Zaynab Joseph [facility] [place] HPI General Stated complaint: Sore throat,cough,fever,bodyaches Mode of Arrival: Ambulatory Source of Information: Patient Limitations: No Limitations Time Seen by Provider: 09/28/22 08:22 Description of Symptoms (Recalled from Triage Doc. by RN): sore throat, body aches, cough, and fever HEENT Symptoms (Recalled from RN notes): Yes Resp Symptoms (Recalled from RN notes): No Skin Symptoms (Recalled from RN notes): No MS Symptoms (Recalled from RN notes): No Functional Status (Recalled from RN notes): n/a History of Present Illness Provider Complaint: Patient states that she has been having sore throat, body aches, cough and fever States that she gets strep throat often Related Data Home Medications Medication Instructions Recorded Confirmed trazodone 50 mg tablet 50 mg PO HS Insomnia 12/03/20 09/28/22 lisinopril 10 mg tablet See Rx Instructions .Route 09/28/22 09/28/22 .COMPLEX . pantoprazole 40 mg tablet,delayed See Rx Instructions .Route 09/28/22 09/28/22 release .COMPLEX . Previous Rx's Medication Instructions Recorded amoxicillin 875 mg tablet 875 mg PO Q12H #20 tabs 09/28/22 Allergies Allergy/AdvReac Type Severity Reaction Status Date / Time No Known Allergies Allergy Verified 09/28/22 08:16 Worker's Comp Is this a Worker's Comp case?: No [facility] Disclaimer: The information contained in this section may have been updated after the patient was seen, as this information can be updated by other users. Social History Smoking Status: Never smoker alcohol intake: never substance use type: denies use current oc
[2022-09-28 08:39] LABS: UTC Pregnancy Test, Urine Negative (Negative)
[2022-09-28 08:51] VITALS: BP 132/62; PULSE 81; RESP 20; TEMP 36.7; O2SAT 96
== END 2022-09-28 08:50 | disposition home or self-care (01) ==
PROVIDERS: Emergency Provider Nurse Practitioner; PCP Emergency Medicine
DX: J02.0 Streptococcal pharyngitis (principal); R05.1 Acute cough; R50.9 Fever, unspecified
CPT/HCPCS: 81025; 87880; 99212; 99214; G0463

== ENCOUNTER → 2023-03-16 12:45 | Outpatient (CLI) | payer MEDICAID, SELFPAY ==
[2023-03-16 14:37] LABS: HCG,Quantitative < 2 mIU/ml (0-5.42)
[2023-03-17 08:20] LABS: Progesterone 0.2 ng/mL (.)
== END ==
PROVIDERS: PCP Emergency Medicine; Visit Provider Nurse Practitioner Obstetrics & Gynecology
DX: N92.6 Irregular menstruation, unspecified (principal)
CPT/HCPCS: 36415; 84144; 84702

== ENCOUNTER 2023-03-31 14:11 | Emergency (ER) | payer MEDICAID, SELFPAY ==
[2023-03-31 14:35] VITALS: BP 134/75; PULSE 75; RESP 20; TEMP 36.7; O2SAT 99; BMI 45.1
[2023-03-31 14:43] LABS: UTC Pregnancy Test, Urine Negative (Negative)
[2023-03-31 14:49] LABS: Microscopic, Urine URINE MICROSCOPIC (MICROSCOPIC)
[2023-03-31 14:53] LABS: Appearance,Urine CLEAR (Clear); Blood, Urine Negative (Negative); Color,Urine YELLOW (Yellow); Glucose,Urine (UA) Negative (Negative); Ketones,Urine Negative (Negative); Leukocyte Esterase,Urine Negative (Negative); Nitrate,Urine Negative (Negative); Protein,Urine Negative (Negative); Specific Gravity, Urine >= 1.030 (1.005-1.030)
[2023-03-31 14:54] LABS: Bilirubin,Urine 1+ (Negative)
--- NOTE | 2023-03-31 14:54 | EXP.UTC ---
Discharge Plan Disposition Patient Disposition: Home, Self-Care Condition: Good Prescriptions Prescriptions: No Action spironolactone 50 mg tablet 50 mg PO DAILY Patient Comments: TAKE 1 TABLET BY MOUTH DAILY trazodone 50 MG tablet 50 mg PO HS pantoprazole 40 mg tablet,delayed release (DR/EC) 40 mg PO DAILY Rx Instructions: TAKE 1 TABLET BY MOUTH DAILY FOR GERD lisinopril 10 mg tablet 10 mg PO DAILY Rx Instructions: TAKE 1 TABLET BY MOUTH DAILY FOR HIGH BLOOD PRESSURE Referrals Follow up/Referrals: Thomas Mehta MD [Primary Care Provider] - See instructions Activity Restrictions/Add. Instructions Additional Instructions/Restrictions: Follow up with your Family Doctor if symptoms persit or worsen [facility] Return if needed Straight to ER if any abdominal pain or life threatening symptoms Clinical Impressions Clinical Impression: Burning with urination Stand Alone Forms Stand Alone Forms: Work/School Release Instructions Patient Instructions: DI for Low Back Pain Discharge ED Provider: Zaynab Joseph [facility] General Stated complaint: possible UTI Mode of Arrival: Ambulatory Source of Information: Patient Limitations: No Limitations Time Seen by Provider: 03/31/23 14:54 Description of Symptoms (Recalled from Triage Doc. by RN): PATIENT C/O LOWER BACK PAIN AND NAUSEA THIS MORNING AND GENITAL PAIN THAT STARTED TODAY HEENT Symptoms (Recalled from RN notes): No Resp Symptoms (Recalled from RN notes): No Skin Symptoms (Recalled from RN notes): No MS Symptoms (Recalled from RN notes): No Functional Status (Recalled from RN notes): WNL History of Present Illness Provider Complaint: Patient states that this morning she woke up with an achy like feeling in her lower back and little nausea but went on to work and at work she had to urinate and noticed she was having burning with urination and today it has continued with feeling of urgency and frequency worried she may have a UTI so she came in Related Data Home Medications Medication Instructions Recorded Confirmed trazodone 50 mg tablet 50 mg PO HS Insomnia 12/03/20 03/31/23 spironolactone 50 mg tablet 50 mg PO DAILY . 01/05/23 03/31/23 lisinopril 10 mg tablet 10 mg PO DAILY Hypertension 03/31/23 03/31/23 pantoprazole 40 mg tablet,delayed 40 mg PO DAILY GERD 03/31/23 03/31/23 release Allergies Allergy/AdvReac Type Severity Reaction Status Date / Time No Known Allergies Allergy Verified 03/15/23 13:22 Worker's Comp Is this a Worker's Comp case?: No [facility] Disclaimer: The information contained in this section may have been updated after the patient was seen, as this information can be updated by other users. Medical History Bicornate uterus delivery delivered Family History Other Diabetes Hypertension Social History Smoking Status: Never smoker alcohol intake: never substance use type: denies use current occupational status: employed Travel in the last 8 weeks: None caffeine: No ROS Obtained: Yes All systems reviewed & no additional complaints except as documented and Yes Systems reviewed as appropriate & no additional complaints except as documented Constitutional Constitutional: Reports system reviewed and no additional complaints, except as documented, Reports as per HPI, Denies body ache, Denies chills and Denies fever(s) ENT Ears, Nose, Mouth, and Throat: Reports system reviewed and no additional complaints, except as documented and Reports as per HPI Cardiovascular Cardiovascular: Reports system reviewed and no additional complaints, except as documented and Reports as per HPI Respiratory Respiratory: Reports system reviewed and no additional complaints,
[2023-03-31 15:06] LABS: Squamous Epithelial Cell,Urine 20-50 #/hpf (0-5); WBC,Urine Occasional #/hpf (0-3)
[2023-03-31 15:08] VITALS: BP 134/75; PULSE 75; RESP 20; TEMP 36.7; O2SAT 99
== END 2023-03-31 15:11 | disposition home or self-care (01) ==
PROVIDERS: Emergency Provider Nurse Practitioner; PCP Emergency Medicine
DX: R30.0 Dysuria (principal); M54.59 Other low back pain
CPT/HCPCS: 81001; 81025; 99212; 99213; G0463

== ENCOUNTER 2023-05-18 14:04 | Emergency (ER) | payer MEDICAID, SELFPAY ==
[2023-05-18 14:10] VITALS: BP 158/81; PULSE 81; RESP 20; TEMP 36.7; O2SAT 98; BMI 45.1
--- NOTE | 2023-05-18 14:19 | EXP.UTC ---
Discharge Plan Disposition Patient Disposition: Home, Self-Care Condition: Good Prescriptions Prescriptions: New ondansetron 4 mg tablet,disintegrating 4 mg PO Q8H PRN (Reason: nausea and vomiting) Qty: 10 0RF No Action spironolactone 50 mg tablet 50 mg PO DAILY Patient Comments: TAKE 1 TABLET BY MOUTH DAILY trazodone 50 MG tablet 50 mg PO HS pantoprazole 40 mg tablet,delayed release (DR/EC) 40 mg PO DAILY Rx Instructions: TAKE 1 TABLET BY MOUTH DAILY FOR GERD lisinopril 10 mg tablet 10 mg PO DAILY Rx Instructions: TAKE 1 TABLET BY MOUTH DAILY FOR HIGH BLOOD PRESSURE Referrals Follow up/Referrals: Thomas Mehta MD [Primary Care Provider] - See instructions Activity Restrictions/Add. Instructions Additional Instructions/Restrictions: Drink extra fluids with and between meals. If you have difficulty drinking, try very small amounts of water or suck on ice chips. ? Avoid fruit juices, as these do not replace minerals and can actually increase diarrhea. ? Children and adults can use sports drinks to replenish electrolytes. Younger children and infants should use products formulated for children, like oral rehydration solutions. ? Eat food in small amounts and let your stomach recover. ? Get lots of rest. You may feel tired or weak. ? No greasy or fried foods for the next 24-48 hours BRAT diet Bananas Rice Apples and [place] ? Make sure to drink plenty of liquids ? Return if needed ? Straight to ER if any life threatening symptoms ? Zofran as prescribed ? Follow up with family doctor in the next 48-72 hours if no improvement or any worsening of symptoms Clinical Impressions Clinical Impression: Nausea and vomiting Stand Alone Forms Stand Alone Forms: Work/School Release Instructions Patient Instructions: Nausea and Vomiting-Adult, Ondansetron Discharge ED Provider: Zaynab Joseph [facility] General Stated complaint: throwing up headache Mode of Arrival: Ambulatory Source of Information: Patient Limitations: No Limitations Time Seen by Provider: 05/18/23 14:19 Description of Symptoms (Recalled from Triage Doc. by RN): PATIENT C/O VOMITING AND HEADACHE SINCE THIS MORNING HEENT Symptoms (Recalled from RN notes): Yes Resp Symptoms (Recalled from RN notes): No Skin Symptoms (Recalled from RN notes): No MS Symptoms (Recalled from RN notes): No Functional Status (Recalled from RN notes): WNL History of Present Illness Provider Complaint: Patient states that recently had a stomach bug now she thinks she may have it too States that she started yesterday with N/V and having a little headache States that she took some Motrin last night and her headache was better and went away but when she woke up this morning she was having some nausea and vomiting still and now feels like she is starting to have a little headache again Related Data Home Medications Medication Instructions Recorded Confirmed trazodone 50 mg tablet 50 mg PO HS Insomnia 12/03/20 05/18/23 spironolactone 50 mg tablet 50 mg PO DAILY . 01/05/23 05/18/23 lisinopril 10 mg tablet 10 mg PO DAILY Hypertension 03/31/23 05/18/23 pantoprazole 40 mg tablet,delayed 40 mg PO DAILY GERD 03/31/23 05/18/23 release Previous Rx's Medication Instructions Recorded ondansetron 4 mg disintegrating 4 mg PO Q8H PRN nausea and 05/18/23 tablet vomiting #10 tabs Allergies Allergy/AdvReac Type Severity Reaction Status Date / Time No Known Allergies Allergy Verified 05/10/23 15:00 Worker's Comp Is this a Worker's Comp case?: No [facility] Disclaimer: The information contained in this section may have been updated after the patient was seen, as this information can be updated by other users. Medical History (Updated 05/18/23 @ 14:38 by Zaynab Joseph APRN) Bicornate uterus Surgical History
[2023-05-18 14:30] LABS: UTC Pregnancy Test, Urine Negative (Negative)
[2023-05-18 14:39] VITALS: BP 158/81; PULSE 81; RESP 20; TEMP 36.7; O2SAT 98
== END 2023-05-18 14:42 | disposition home or self-care (01) ==
PROVIDERS: Emergency Provider Nurse Practitioner; PCP Emergency Medicine
DX: R11.2 Nausea with vomiting, unspecified (principal); R51.9 Headache, unspecified
CPT/HCPCS: 81025; 99212; 99214; G0463

== ENCOUNTER 2023-05-24 16:57 | Outpatient (CLI) | payer MEDICAID, SELFPAY ==
[2023-05-24 17:14] VITALS: BMI 45.4
== END 2023-05-24 17:20 | disposition home or self-care (01) ==
LOC: UTC.OUT 16:59
PROVIDERS: PCP Emergency Medicine; Visit Provider Nurse Practitioner Family
DX: Z11.1 Encounter for screening for respiratory tuberculosis (principal)
CPT/HCPCS: 86580

== ENCOUNTER 2023-05-27 08:01 | Emergency (ER) | payer MEDICAID, SELFPAY ==
[2023-05-27 08:10] VITALS: BP 121/68; PULSE 92; RESP 20; TEMP 36.8; O2SAT 97; BMI 44.2
--- NOTE | 2023-05-27 08:25 | EXP.UTC ---
Discharge Plan Disposition Patient Disposition: Home, Self-Care Condition: Good Prescriptions Prescriptions: No Action spironolactone 50 mg tablet 50 mg PO DAILY Patient Comments: TAKE 1 TABLET BY MOUTH DAILY trazodone 50 MG tablet 50 mg PO HS pantoprazole 40 mg tablet,delayed release (DR/EC) 40 mg PO DAILY Rx Instructions: TAKE 1 TABLET BY MOUTH DAILY FOR GERD lisinopril 10 mg tablet 10 mg PO DAILY Rx Instructions: TAKE 1 TABLET BY MOUTH DAILY FOR HIGH BLOOD PRESSURE medroxyprogesterone 10 mg tablet 10 mg PO DAILY Patient Comments: TAKE 1 TABLET BY MOUTH ONCE DAILY Referrals Follow up/Referrals: Thomas Mehta MD [Primary Care Provider] - See instructions Activity Restrictions/Add. Instructions Additional Instructions/Restrictions: *Monitor Temp, Over the counter Motrin or Tylenol as directed/as needed Tylenol every 4 hours and Motrin every 6 hours (as long as your family doctor has told you that you can take it) for fever or pain. and straight to ER if unable to lower temp less than 101.0 after medication given *Warm salt water gargles may help to soothe the throat *Throat Lozenges? *Warm fluids like tea with honey may help to soothe the throat? *Sleep elevated *Humidifier/Vaporizer Your throat swab was sent for culture. Those results are typically sent to your primary care. Be sure to follow up in 2-3 days with your family doctor/primary care physician if no improvement so they can review those result and treat if necessary. If you don?t have a primary care doctor, I recommend you get one but in the mean time, you will have to return to a walk in clinic Follow up IMMEDIATELY for new or worsening symptoms or no Noticeable improvement over the next 48-72 hours. 911 for difficulty breathing or swallowing Clinical Impressions Clinical Impression: Viral upper respiratory illness Instructions Patient Instructions: Sore Throat, DI for Nasal Congestion, [place] Discharge ED Provider: Zaynab Joseph [facility] [place] General Stated complaint: sore throat Mode of Arrival: Ambulatory Source of Information: Patient Limitations: No Limitations Time Seen by Provider: 05/27/23 08:25 Description of Symptoms (Recalled from Triage Doc. 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 01/05/23 05/27/23 lisinopril 10 mg tablet 10 mg PO DAILY Hypertension 03/31/23 05/27/23 pantoprazole 40 mg tablet,delayed 40 mg PO DAILY GERD 03/31/23 05/27/23 release medroxyprogesterone 10 mg tablet 10 mg PO DAILY 05/27/23 05/27/23 Allergies Allergy/AdvReac Type Severity Reaction Status Date / Time No Known Allergies Allergy Verified 05/24/23 17:15 Worker's Comp Is this a Worker's Comp case?: No [facility] Disclaimer: The information contained in this section may have been updated after the patient was seen, as this information can be updated by other users. Medical History (Updated 05/27/23 @ 08:34 by Zaynab Joseph APRN) Bicornate uterus Depression Hypertension Surgical History delivery delivered Family History (Reviewed 04/25
[2023-05-27 08:35] VITALS: BP 121/68; PULSE 92; RESP 20; TEMP 36.8; O2SAT 97
[2023-05-27 08:36] LABS: UTC Strep Screen (Rapid) Negative (Negative)
[2023-05-27 08:37] LABS: UTC Influenza A Antigen Negative (Negative)
[2023-05-27 08:38] LABS: UTC Influenza B Antigen Negative (Negative)
== END 2023-05-27 08:38 | disposition home or self-care (01) ==
PROVIDERS: Emergency Provider Nurse Practitioner; PCP Emergency Medicine
DX: J06.9 Acute upper respiratory infection, unspecified (principal); B34.9 Viral infection, unspecified; I10 Essential (primary) hypertension; F32.A Depression, unspecified
CPT/HCPCS: 87804; 87880; 99212; 99213; G0463

== ENCOUNTER 2023-08-03 14:48 | Emergency (ER) | payer MEDICAID, SELFPAY ==
[2023-08-03 15:05] VITALS: BP 133/74; PULSE 82; RESP 18; TEMP 36.7; O2SAT 97; BMI 44.6
--- NOTE | 2023-08-03 15:28 | EXP.UTC ---
Discharge Plan Disposition Patient Disposition: Home, Self-Care Condition: Good Prescriptions Prescriptions: New benzonatate [benzonatate] 100 mg capsule 100 mg PO TIDP PRN (Reason: Cough) Qty: 30 0RF ondansetron 4 mg Tablet,Disintegrating 4 mg PO Q8H PRN (Reason: Nausea) Qty: 12 0RF No Action spironolactone 50 mg tablet 50 mg PO DAILY Patient Comments: TAKE 1 TABLET BY MOUTH DAILY trazodone 50 MG tablet 50 mg PO HS pantoprazole 40 mg tablet,delayed release (DR/EC) 40 mg PO DAILY Rx Instructions: TAKE 1 TABLET BY MOUTH DAILY FOR GERD lisinopril 10 mg tablet 10 mg PO DAILY Rx Instructions: TAKE 1 TABLET BY MOUTH DAILY FOR HIGH BLOOD PRESSURE medroxyprogesterone 10 mg tablet 10 mg PO DAILY Patient Comments: TAKE 1 TABLET BY MOUTH ONCE DAILY Referrals Follow up/Referrals: Deon Saavedra DO [Primary Care Provider] - See instructions Activity Restrictions/Add. Instructions Additional Instructions/Restrictions: Drink plenty of fluids. Take tylenol or ibuprofen for pain or fever. Take the medications as directed. Follow up with your regular doctor. GO TO THE ER FOR ANY WORSENING SYMPTOMS Clinical Impressions Clinical Impression: Acute viral syndrome Stand Alone Forms Stand Alone Forms: Work/School Release Instructions Patient Instructions: DI for Viral Syndrome Discharge ED Provider: Yousuf Alicia [facility] General Stated complaint: cough congestion vomiting diarrhea flu exposure Time Seen by Provider: 08/03/23 15:28 History of Present Illness Provider Complaint: She states that she has had fever, malaise, and a cough for the past 2 days. She has been exposed to influenza in her home. Related Data Home Medications Medication Instructions Recorded Confirmed trazodone 50 mg tablet 50 mg PO HS Insomnia 12/03/20 08/03/23 spironolactone 50 mg tablet 50 mg PO DAILY . 01/05/23 08/03/23 lisinopril 10 mg tablet 10 mg PO DAILY Hypertension 03/31/23 08/03/23 pantoprazole 40 mg tablet,delayed 40 mg PO DAILY GERD 03/31/23 08/03/23 release medroxyprogesterone 10 mg tablet 10 mg PO DAILY 05/27/23 08/03/23 Previous Rx's Medication Instructions Recorded benzonatate 100 mg capsule 100 mg PO TIDP PRN Cough #30 caps 01/09/24 ondansetron 4 mg disintegrating 4 mg PO Q8H PRN Nausea #12 tabs 08/03/23 tablet Allergies Allergy/AdvReac Type Severity Reaction Status Date / Time No Known Allergies Allergy Verified 05/24/23 17:15 [facility] Disclaimer: The information contained in this section may have been updated after the patient was seen, as this information can be updated by other users. Medical History (Updated 08/03/23 @ 15:47 by Yousuf Alicia APRN) Bicornate uterus Depression Hypertension Surgical History delivery delivered Family History Other Diabetes Hypertension Social History Smoking Status: Never smoker alcohol intake: current substance use type: denies use current occupational status: employed Travel in the last 8 weeks: None caffeine: No ROS Obtained: Yes All systems reviewed & no additional complaints except as documented Constitutional Constitutional: Reports chills and Reports fever(s) Eyes Eyes: Denies eye discharge ENT Ears, Nose, Mouth, and Throat: Reports as per HPI Cardiovascular Cardiovascular: Denies chest pain Respiratory Respiratory: Denies chest congestion and Reports cough Gastrointestinal Gastrointestingal: Reports nausea; Denies abdominal pain, constipation, cramping, diarrhea or vomiting Musculoskeletal Musculoskeletal: Denies arthralgias Integumentary/Breasts Skin/Breast: Denies rash Neurologic Neurologic: Denies paresthesias Physical Exam General General appearance: alert and in no apparent distress Head Head exam: atraumatic, normocephalic and normal inspection Eye Eye exam: Present normal appearance, PERRL and EOMI ENT ENT exam: Present normal exam, normal oropharynx, mucous membranes moist, TM's normal bilaterally and normal external ear exam Neck Neck exam: Present normal inspection, full ROM and trachea midline; Absent meningismus or lymphadenopathy Chest Chest inspection: Present normal inspection and symmetric chest wall rise; Absent tenderness Respiratory Respiratory exam: Present normal lung sounds bilaterally; Absent respiratory distress Cardiovascular Cardiovascular exam: Present regular rate and normal rhythm; Absent JVD Abdominal Exam Abdominal exam: Present soft and normal bowel sounds; Absent distention, tenderness or guarding Extremities Exam Extremities exam: Present normal inspection, full ROM and normal capillary refill; Absent calf tenderness Back Exam Back exam: Present normal inspection; Absent tenderness Neurological Exam Neurological exam: Present alert and oriented X3 Psychiatric Psychiatric exam: Present normal affect and normal mood Skin Skin exam: Present warm, dry, intact and normal color Lymphatic Lymphatic Findings: no adenopathy Medical Decision Making Medical Records Medical records reviewed: No I reviewed the patient's medical records. Sujit Inquiry Pt receiving controlled substance: No Lab Data Lab results reviewed: Yes I reviewed the patient's lab results.
[2023-08-03 15:48] LABS: UTC Influenza A Antigen Negative (Negative); UTC Strep Screen (Rapid) Negative (Negative)
[2023-08-03 15:49] LABS: UTC Influenza B Antigen Negative (Negative)
[2023-08-03 16:00] VITALS: BP 133/74; PULSE 82; RESP 18; TEMP 36.7; O2SAT 97
[2023-08-03 16:01] LABS: Adenovirus,PCR Not Detected (NotDetected); Coronavirus 229E Not Detected (NotDetected); Coronavirus NL63 Not Detected (NotDetected); Coronavirus OC43 Not Detected (NotDetected); Coronovirus HKU1,PCR Not Detected (NotDetected); Human Metapneumovirus Not Detected (NotDetected); Influenza A, PCR Not Detected (NotDetected); Influenza AH1, 2009 Not Detected (NotDetected); Influenza AH1, PCR Not Detected (NotDetected)
[2023-08-03 16:02] LABS: Coronavirus 19, PCR Not Detected (NotDetected); Influenza AH3,PCR Not Detected (NotDetected); Influenza B, PCR Not Detected (NotDetected); Parainfluenza 1, PCR Not Detected (NotDetected); Parainfluenza 2, PCR Not Detected (NotDetected); Parainfluenza 3, PCR Not Detected (NotDetected); Parainfluenza 4, PCR Not Detected (NotDetected); Respiratory Syncytial Virus Not Detected (NotDetected)
[2023-08-03 18:49] LABS: Rhinovirus/Enterovirus Detected (NotDetected)
== END 2023-08-03 16:00 | disposition home or self-care (01) ==
PROVIDERS: Emergency Provider Nurse Practitioner Family; PCP Internal Medicine
DX: R05.9 Cough, unspecified (principal); B34.1 Enterovirus infection, unspecified; R50.9 Fever, unspecified; R09.81 Nasal congestion; R11.0 Nausea; I10 Essential (primary) hypertension; Z20.828 Contact with and (suspected) exposure to other viral communicable diseases
CPT/HCPCS: 87632; 87635; 87804; 87880; 99212; 99214; G0463

== ENCOUNTER 2023-09-07 12:07 | Emergency (ER) | payer MEDICAID, SELFPAY ==
[2023-09-07 13:10] VITALS: BP 122/77; PULSE 81; RESP 19; TEMP 36.8; O2SAT 99; BMI 47.8
--- NOTE | 2023-09-07 13:20 | ED_ITS ---
Discharge Plan Disposition Patient Disposition: Home, Self-Care Condition: Good Prescriptions Prescriptions: New amoxicillin-pot clavulanate 875-125 mg Tablet 1 tab PO Q12H Qty: 20 0RF fluticasone propionate [Flonase Allergy Relief] 50 mcg/actuation spray ,suspension 2 spray intranasal DAILY Qty: 16 0RF Rx Instructions: administer into each nostril No Action spironolactone 50 mg tablet 50 mg PO DAILY Patient Comments: TAKE 1 TABLET BY MOUTH DAILY benzonatate [benzonatate] 100 mg capsule 100 mg PO TIDP PRN (Reason: Cough) Qty: 30 0RF ondansetron 4 mg Tablet,Disintegrating 4 mg PO Q8H PRN (Reason: Nausea) Qty: 12 0RF trazodone 50 MG tablet 50 mg PO HS pantoprazole 40 mg tablet,delayed release (DR/EC) 40 mg PO DAILY Rx Instructions: TAKE 1 TABLET BY MOUTH DAILY FOR GERD lisinopril 10 mg tablet 10 mg PO DAILY Rx Instructions: TAKE 1 TABLET BY MOUTH DAILY FOR HIGH BLOOD PRESSURE medroxyprogesterone 10 mg tablet 10 mg PO DAILY Patient Comments: TAKE 1 TABLET BY MOUTH ONCE DAILY Referrals Follow up/Referrals: Deon Saavedra DO [Primary Care Provider] - See instructions Activity Restrictions/Add. Instructions Additional Instructions/Restrictions: *Monitor Temp, Over the counter Motrin or Tylenol as directed/as needed Tylenol every 4 hours and Motrin every 6 hours (as long as your family doctor has told you that you can take it) for fever or pain. and straight to ER if unable to lower temp less than 101.0 after medication given *Warm salt water gargles may help to soothe the throat *Throat Lozenges? *Warm fluids like tea with honey may help to soothe the throat? *Sleep elevated *Humidifier/Vaporizer *Flonase 2 sprays in each nostril daily but be aware that it may take 2-3 days before you notice improvement *Follow up IMMEDIATELY for new or worsening symptoms or no Noticeable improvement over the next 48-72 hours. 911 for difficulty breathing or swallowing Clinical Impressions Clinical Impression: Sinusitis Qualifiers: Sinusitis location: unspecified location Chronicity: unspecified Qualified Code(s): J32.9 - Chronic sinusitis, unspecified Stand Alone Forms Stand Alone Forms: Work/School Release Instructions Patient Instructions: Sinusitis, DI for Sinusitis Discharge ED Provider: Zaynab Joseph [facility] [place] H[place] General Stated complaint: cough, sore throat, headaches Time Seen by Provider: 09/07/23 13:21 History of Present Illness Provider Complaint: Patient states that she has been sick on and off for about 3 weeks with scratchy throat, sinus pain and pressure and headache and cough Stat es that she has been taking OTC medications for it but they have not helped so today she came in thinking she may have a sinus infection Related Data Home Medications Medication Instructions Recorded Confirmed trazodone 50 mg tablet 50 mg PO HS Insomnia 12/03/20 08/03/23 spironolactone 50 mg tablet 50 mg PO DAILY . 01/05/23 08/03/23 lisinopril 10 mg tablet 10 mg PO DAILY Hypertension 03/31/23 08/03/23 pantoprazole 40 mg tablet,delayed 40 mg PO DAILY GERD 03/31/23 08/03/23 release medroxyprogesterone 10 mg tablet 10 mg PO DAILY 05/27/23 08/03/23 Previous Rx's Medication Instructions Recorded benzonatate 100 mg capsule 100 mg PO TIDP PRN Cough #30 caps 08/03/23 ondansetron 4 mg disintegrating 4 mg PO Q8H PRN Nausea #12 tabs 08/03/23 tablet amoxicillin 875 mg-potassium 1 tab PO Q12H #20 tabs 09/07/23 clavulanate 125 mg tablet fluticasone propionate 50 2 spray intranasal DAILY #16 grams 09/07/23 mcg/actuation nasal spray,suspension (Flonase Allergy Relief) Allergies Allergy/AdvReac Type Severity Reaction Status Date / Time No Known Allergies Allergy Verified 05/24/23 17:15 [facility] Disclaimer: The information contained in this section may have been updated after the patient was seen, as this information can be updated by other users. Medical History (Updated 09/07/23 @ 13:32 by Zaynab Joseph APRN) Bicornate uterus Depression Hypertension Surgical History delivery delivered Family History Other Diabetes Hypertension Social History Smoking Status: Never smoker alcohol intake: current substance use type: denies use current occupational status: employed Travel in the last 8 weeks: None caffeine: No ROS Obtained: Yes All systems reviewed & no additional complaints except as documented and Yes Systems reviewed as appropriate & no additional complaints except as documented Constitutional Constitutional: Reports system reviewed and no additional complaints, except as documented, Reports as per HPI and Reports headache(s) ENT Ears, Nose, Mouth, and Throat: Reports system reviewed and no additional complaints, except as documented, Reports as per HPI, Reports headache(s), Reports sinus pain, Reports sinus pressure and Reports sore throat Cardiovascular Cardiovascular: Reports system reviewed and no additional complaints, except as documented and Reports as per HPI Respiratory Respiratory: Reports system reviewed and no additional complaints, except as documented, Reports as per HPI and Reports cough Gastrointestinal Gastrointestingal: Reports system reviewed and no additional complaints, except as documented and as per HPI Neurologic Neurologic: Reports headache(s) Physical Exam General General appearance: alert and in no apparent distress ENT ENT exam: Present mucous membranes moist Expanded ENT Exam Nose exam: Present sinus tenderness Throat exam: Present tonsillar erythema Respiratory Respiratory exam: Present normal lung sounds bilaterally; Absent respiratory distress or wheezes Cardiovascular Cardiovascular exam: Present regular rate, normal rhythm and normal heart sounds Neurological Exam Neurological exam: Present alert, oriented X3 and normal gait Medical Decision Making Sujit Inquiry Pt receiving controlled substance: No Sujit was queried for this patient: No
[2023-09-07 13:36] LABS: UTC Pregnancy Test, Urine Negative (Negative)
[2023-09-07 13:41] VITALS: BP 122/77; PULSE 81; RESP 19; TEMP 36.8; O2SAT 99
== END 2023-09-07 13:43 | disposition home or self-care (01) ==
PROVIDERS: Emergency Provider Nurse Practitioner; PCP Internal Medicine
DX: J01.90 Acute sinusitis, unspecified (principal); R05.9 Cough, unspecified; R07.0 Pain in throat; R51.9 Headache, unspecified; R09.81 Nasal congestion; I10 Essential (primary) hypertension
CPT/HCPCS: 81025; 99212; 99214; G0463

== ENCOUNTER 2023-09-09 13:08 | Outpatient (CLI) | payer MEDICAID, SELFPAY ==
[2023-09-09 13:55] LABS: Basophils % 0.6 % (0.1-2.0); Eosinophils # 0.2 K/mm3 (0.0-0.4); Eosinophils % 2.2 % (0.1-12.0); Hemoglobin 13.3 g/dL (12.2-16.2); Lymphocytes # 1.9 K/mm3 (0.7-4.5); Lymphocytes % 27.1 % (10-50); Mean Corpuscular HGB Conc 33.3 g/dL (31.8-35.4); Mean Platelet Volume 8.5 fl (7.4-10.4); Monocytes # 0.4 K/mm3 (0.1-1.0); Monocytes % 5.6 % (1.7-9.3); Neutrophils # 4.6 K/mm3 (1.8-7.8); Neutrophils % 64.6 % (37.0-80.0); Platelet Count 365 K/mm3 (142-424); Red Blood Count 4.94 M/mm3 (4.20-5.40); White Blood Count 7.1 K/mm3 (4.8-10.8)
[2023-09-09 14:12] LABS: Alanine Aminotransferase 21 U/L (12-78); Albumin Level 4.3 g/dl (3.5-5.0); Albumin/Globulin Ratio 1.4 (1.1-1.8); Anion Gap 11.5 mEq/L (5-15); Aspartate Amino Transferase 25 U/L (14-36); Bilirubin,Total 0.4 mg/dl (0.2-1.3); Blood Urea Nitrogen 13 mg/dl (7-17); Calcium 9.5 mg/dl (8.4-10.2); Carbon Dioxide 25 mmol/L (22.0-30.0); Chloride 104 mmol/L (98-107); Cholesterol 205 mg/dl (140-200); Estimated Glomerular Filt Rate 145 ml/min (>60); GFR (African American) 175 ML/MIN (>60); Globulin 3.1 g/dL (1.3-3.2); Glucose 99 mg/dl (74-100); HDL Cholesterol 29 mg/dl (40-60); Potassium 4.5 mmoL/L (3.5-5.1); Sodium 136 mmol/L (136-145); Total Protein,Serum 7.4 g/dl (6.3-8.2); Triglycerides 155 mg/dl (30-150); VLDL Cholesterol 31 mg/dL (0-40)
[2023-09-09 14:13] LABS: Alkaline Phosphatase 83 U/L (38-126); Chol/HDL Ratio 7.1 (1-3.5)
[2023-09-09 14:23] LABS: Direct LDL Cholesterol 134.88 mg/dL (100-129)
[2023-09-09 14:36] LABS: 25-OH Vitamin D, Total 38.5 ng/mL (30-100)
[2023-09-09 14:43] LABS: Thyroid Stimulating Hormone 0.44 uIU/mL (0.465-4.68)
[2023-09-09 15:02] LABS: Vitamin B12 310 pg/mL (239-931)
[2023-09-09 18:32] LABS: Free Thyroxine Index 2.8 ug/dL (5.93-13.13); T4 (Thyroxine) 9.8 ug/dl (5.53-11.0); Triiodothryronine (T3) Uptake 29 % (23.5-40.5)
[2023-09-09 18:46] LABS: Thyroid Stimulating Hormone 0.46 uIU/mL (0.465-4.68)
[2023-09-10 13:20] LABS: Intact Parathyroid Hormone 27.7 pg/mL (7.5-53.5)
== END 2023-09-09 23:59 ==
LOC: LAB.DROPOF 13:09
PROVIDERS: PCP Family Medicine; Visit Provider Family Medicine
DX: E55.9 Vitamin D deficiency, unspecified (principal); I10 Essential (primary) hypertension; R79.89 Other specified abnormal findings of blood chemistry; E66.9 Obesity, unspecified; Z68.42 Body mass index [BMI] 45.0-49.9, adult; Z79.899 Other long term (current) drug therapy
CPT/HCPCS: 80053; 80061; 82306; 82607; 83036; 83970; 84436; 84443; 84479; 85025

== ENCOUNTER 2023-09-09 13:30 | Outpatient (CLI) | payer MEDICAID, SELFPAY ==
--- NOTE | 2023-09-09 13:33 | XR_ITS ---
FINAL REPORT CLINICAL HISTORY: bronchitis FINDINGS: TWO-VIEW CHEST The heart size is normal. The mediastinum is normal. There is a 21 mm nodule in the right lung base, likely a calcified granuloma. There is no pneumothorax. IMPRESSION: Right lung base nodule, likely calcified granuloma. Recommend follow-up radiographs or CT. Reviewed, Interpreted and Dictated by Roberto Anton III, MD Transcribed by Sharri Johnson Authenticated and [facility]
== END 2023-09-09 23:59 ==
LOC: RAD 13:31
PROVIDERS: PCP Family Medicine; Visit Provider Family Medicine
DX: J40 Bronchitis, not specified as acute or chronic (principal)
CPT/HCPCS: 71046

== ENCOUNTER 2023-11-09 15:01 | Emergency (ER) | payer MEDICAID, SELFPAY ==
[2023-11-09 15:01] VITALS: BP 129/86; PULSE 93; RESP 16; TEMP 36.6; O2SAT 95; BMI 46.5
--- NOTE | 2023-11-09 15:01 | ECG_ITS ---
APPROVED REPORT Exam: Resting ECG HR:96 bpm ECG Measurements Heart Rate 96 AXES [place] 139 P 36 QRSd 98 QRS 49 QT 330 T 34 QTc 383 Conclusion SINUS RHYTHM LOW QRS VOLTAGE IN PRECORDIAL LEADS [QRS DEFLECTION < 1.0 mV IN CHEST LEADS] INCOMPLETE RIGHT BUNDLE BRANCH BLOCK [90+ ms QRS DURATION, TERMINAL R IN V1/V2, 40+ ms S IN I/aVL/V4/V5/V6] BORDERLINE ECG UNCONFIRMED REPORT Electronically signed by : ROSE MARSHALL, 11/10/2023 06:52:51
--- NOTE | 2023-11-09 15:12 | ED_ITS ---
Discharge Plan Disposition Patient Disposition: Home, Self-Care Condition: Good Prescriptions Prescriptions: No Action promethazine-DM 6.25-15 mg/5 mL syrup 5 ml PO Q6H Qty: 118 0RF levothyroxine 25 mcg tablet 25 mcg PO DAILY Qty: 30 2RF rosuvastatin [Crestor] 10 mg tablet 10 mg PO DAILY Qty: 30 2RF fluconazole 150 mg tablet 150 mg PO Q3D Qty: 2 0RF spironolactone 50 mg tablet 50 mg PO DAILY Qty: 30 5RF benzonatate [benzonatate] 100 mg capsule 100 mg PO TIDP PRN (Reason: Cough) Qty: 30 0RF ondansetron 4 mg Tablet,Disintegrating 4 mg PO Q8H PRN (Reason: Nausea) Qty: 12 0RF trazodone 50 MG tablet 50 mg PO HS pantoprazole 40 mg tablet,delayed release (DR/EC) 40 mg PO DAILY Rx Instructions: TAKE 1 TABLET BY MOUTH DAILY FOR GERD lisinopril 10 mg tablet 10 mg PO DAILY Rx Instructions: TAKE 1 TABLET BY MOUTH DAILY FOR HIGH BLOOD PRESSURE amoxicillin-pot clavulanate 875-125 mg Tablet 1 tab PO Q12H Qty: 20 0RF fluticasone propionate [Flonase Allergy Relief] 50 mcg/actuation spray,suspension 2 spray intranasal DAILY Qty: 16 0RF Rx Instructions: administer into each nostril Referrals Follow up/Referrals: Provider,Referral, MD [Referring] - See instructions Activity Restrictions/Add. Instructions Additional Instructions/Restrictions: As discussed, your labs that we have drawn thus far are all grossly reassuring at this time. We discussed the risks of being discharged after the first heart enzyme level, which was undetectable showing no evidence at this time as far as we can tell of stress on your heart. After shared decision making we have decided that it is okay to be discharged at this time with the understanding of these risks. Please return with any new or worsening symptoms. Clinical Impressions Clinical Impression: Epigastric abdominal pain, Burning chest pain Stand Alone Forms Stand Alone Forms: Work/School Release Instructions Patient Instructions: DI for Atypical Chest Pain Discharge ED Provider: Francisco Morrison Adult [facility] General Chief complaint: Chest Pain Stated complaint: CHEST PAIN Time Seen by Provider: 11/09/23 15:01 Mode of Arrival: Ambulatory Source of Information: Patient Limitations: No Limitations Description of Symptoms (Recalled from ER Triage Doc. by RN): Patient reports pain from her belly to throat that started this morning. States she is unable to describe how the pain is or what it feels like. History of Present Illness HPI narrative: Patient presents for evaluation of epigastric pain that radiates up her chest, it is described as occasionally dull occasionally sharp, somewhat similar in characteristic to history of gastric reflux for which patient takes pantoprazole and has been compliant. Last dose this morning. It is nonpleuritic, nonexertional, nonpositional, nonreproducible, she had episode of emesis yesterday. She states she has known history of gastroparesis as determined by endoscopy in the past. No changes in medications or new medications. Denies any cardiac history, denies any hemoptysis, denies any fevers or chills. Please note that above description of symptoms, in this electronic medical record under categorization of recalled from ER triage doctor by RN are reflective of an initial nursing assessment, however, is not reflective of my full history and physical exam that was personally taken and clarified. Consequentially, this preceding description of symptoms, which may include the patient's categorized chief complaint in the EMR, do not reflect my personal clinical impression, and the ultimate description of history of present illness and patient stated complaints should be deferred to this section of the note. Unless stated otherwise or congruent with this section of the note, additional signs, symptoms, or incongruence should be interpreted as inaccurate with my clinical impression. Related Data Home Medications Medication Instructions Recorded Confirmed trazodone 50 mg tablet 50 mg PO HS Insomnia 12/03/20 09/09/23 lisinopril 10 mg tablet 10 mg PO DAILY Hypertension 03/31/23 09/09/23 pantoprazole 40 mg tablet,delayed 40 mg PO DAILY GERD 03/31/23 09/09/23 release Previous Rx's Medication Instructions Recorded benzonatate 100 mg capsule 100 mg PO TIDP PRN Cough #30 caps 08/03/23 ondansetron 4 mg disintegrating 4 mg PO Q8H PRN Nausea #12 tabs 08/03/23 tablet amoxicillin 875 mg-potassium 1 tab PO Q12H #20 tabs 09/07/23 clavulanate 125 mg tablet fluticasone propionate 50 2 spray intranasal DAILY #16 grams 09/07/23 mcg/actuation nasal spray,suspension (Flonase Allergy Relief) promethazine-DM 6.25 mg-15 mg/5 mL 5 ml PO Q6H #118 mL 09/09/23 oral syrup levothyroxine 25 mcg tablet 25 mcg PO DAILY #30 tabs 09/10/23 rosuvastatin 10 mg tablet (Crestor) 10 mg PO DAILY #30 tabs 09/10/23 fluconazole 150 mg tablet 150 mg PO Q3D yeast infection 2 09/14/23 doses #2 tabs spironolactone 50 mg tablet 50 mg PO DAILY . #30 tabs 10/27/23 Allergies Allergy/AdvReac Type Severity Reaction Status Date / Time No Known Allergies Allergy Verified 09/09/23 08:50 [facility] Disclaimer: The information contained in this section may have been updated after the patient was seen, as this information can be updated by other users. Medical History Bicornate uterus Depression Hypertension Surgical History delivery delivered Family History Other Diabetes Hypertension Social History Smoking Status: Never smoker alcohol intake: current substance use type: denies use current occupational status: employed Travel in the last 8 weeks: None caffeine: No ROS Obtained: Yes Systems reviewed as appropriate & no additional complaints except as documented As per HPI Physical Exam General General appearance: alert and in no apparent distress Head Head exam: atraumatic and normocephalic Eye Eye exam: Present normal appearance Neck Neck exam: Present normal inspection Chest Chest inspection: Present normal inspection and symmetric chest wall rise Respiratory Respiratory exam: Present normal lung sounds bilaterally; Absent respiratory distress Cardiovascular Cardiovascular exam: Present regular rate and normal rhythm Abdominal Exam Abdominal exam: Present soft Neurological Exam Neurological exam: Present alert and oriented X3 Psychiatric Psychiatric exam: Present normal affect and normal mood Skin Skin exam: Present warm and dry Medical Decision Making Medical Records Medical records reviewed: Yes I reviewed the patient's medical records. Sujit Inquiry Pt receiving controlled substance: No Vital Signs: 11/09/23 15:01 11/09/23 16:00 11/09/23 16:00 Temperature 97.9 F 97.9 F Temperature Source Oral Oral Pulse Rate 74 81 Pulse Rate [Radial] 93 H Respiratory Rate 16 18 14 Blood Pressure 105/69 L 105/69 L Blood Pressure [Right Arm] 129/86 Blood Pressure Mean [Right Arm] 100 Blood Pressure Source Automatic Cuff Blood Pressure Source [Right Arm] Automatic Cuff Blood Pressure Position [Right Arm] Sitting 02 Sat by Pulse Oximetry 95 96 Oxygen Delivery Method Room Air Room Air Room Air Lab Data Lab Results 11/09/23 15:05: WBC 8.4, RBC 4.98, Hgb 13.0, Hct 41.1, MCV 82.6, MCH 26.0 L, M CHC 31.5 L, RDW 14.6, Plt Count 331, MPV 7.4, Neut % (Auto) 62.8, Lymph % (Auto) 27.7, Loving % (Auto) 4.9, Eos % (Auto) 3.2, Baso % (Auto) 1.3, Neut # (Auto) 5.3, Lymph # (Auto) 2.3, Loving # (Auto) 0.4, Eos # (Auto) 0.3, Baso # (Auto) 0.1, Sodium 141, Potassium 4.0, Chloride 107, Carbon Dioxide 28, Anion Gap 10.0, BUN 10, Creatinine 0.50 L, Estimated Creat Clear 148, Estimated GFR 145, Est GFR ( Amer) 175, Glucose 97, Calcium 9.4, Total Bilirubin 0.5, AST 25, ALT 19, Alkaline Phosphatase 90, Troponin I < 0.01, Total Protein 7.7, Albumin 4.3, Globulin 3.4 H, Albumin/Globulin Ratio 1.3, Lipase 137, Serum HCG, Qual Negative 11/09/23 15:05 11/09/23 15:05 Orders (Tests/Meds): ED MEDICATIONS Discontinued Medications Generic Name Dose Route Start Last Admin Trade Name Freq PRN Reason Stop Dose Admin Belladonna Alkaloids 60 ml 11/09/23 15:22 11/09/23 15:31 Belladonna Alkaloids 60 Ml Ml PO 11/09/23 15:23 60 ml ONCE ONE Administration Lactated Ringer's 1,000 mls @ 999 mls/hr 11/09/23 15:22 11/09/23 15:34 Lactated Ringer's 1000 Ml Bag IV 11/09/23 16:22 999 mls/hr .Q1H1M ONE Administration Ondansetron HCl 4 mg 11/09/23 15:22 11/09/23 15:34 Ondansetron 4mg/2ml Vial IV 11/09/23 15:23 4 mg ONCE ONE Administration ORDERS Category Date Time Status CBC w/Auto Diff [Complete Blood Count Auto Diff] Stat Lab 11/09/23 15:05 Completed CMP [Comprehensive Metabolic Panel] Stat Lab 11/09/23 15:05 Completed HCG Qualitative, Serum Stat Lab 11/09/23 15:05 Completed Lipase Stat Lab 11/09/23 15:05 Completed Troponin I Q3H Lab 11/09/23 15:05 Completed HEART Score History (anamnesis): Slightly suspicious ECG: Non-specific disturbance Age: <45 years Risk factors: 1-2 risk factors Troponin: </= normal limit HEART Score: 2 Medical Decision Narrative: Patient with history and exam per above presenting for evaluation of chest pain Diagnoses considered include ACS, aortic dissection, pericarditis, PE, pneumothorax, pneumonia, GERD, costochondritis, referred pain Patient does not clinically have findings suggestive of dissection, minimal historical risk factors, there is insufficient evidence to warrant further workup for this etiology at this time, additionally insufficient evidence to workup pneumothorax at this time or pulmonary embolism ED workup and treatment included: ED MEDICATIONS Discontinued Medications Generic Name Dose Route Start Last Admin Trade Name Freq PRN Reason Stop Dose Admin Belladonna Alkaloids 60 ml 11/09/23 15:22 11/09/23 15:31 Belladonna Alkaloids 60 Ml Ml PO 11/09/23 15:23 60 ml ONCE ONE Administration Lactated Ringer's 1,000 mls @ 999 mls/hr 11/09/23 15:22 11/09/23 15:34 Lactated Ringer's 1000 Ml Bag IV 11/09/23 16:22 999 mls/hr .Q1H1M ONE Administration Ondansetron HCl 4 mg 11/09/23 15:22 11/09/23 15:34 Ondansetron 4mg/2ml Vial IV 11/09/23 15:23 4 mg ONCE ONE Administration ORDERS Category Date Time Status CBC w/Auto Diff [Complete Blood Count Auto Diff] Stat Lab 11/09/23 15:05 Completed CMP [Comprehensive Metabolic Panel] Stat Lab 04/16/24 15:05 Completed HCG Qualitative, Serum Stat Lab 11/09/23 15:05 Completed Lipase Stat Lab 11/09/23 15:05 Completed Troponin I Q3H Lab 11/09/23 15:05 Completed Labs were independently interpreted by me, significant for no acute findings EKG was independently visualized and interpreted by me significant for sinus rhythm, normal axis, no acute ST changes. Patient has improvement of symptoms upon repeat evaluation. My clinical impression at this time is most consistent with acute chest pain likely secondary to GERD versus esophagitis I discussed my clinical impression with patient and answered all questions. At this time, the evidence for any other entities in the differential is insufficient to warrant any further testing or ED observation. This was explained to the patient. The patient was advised that persistent or worsening symptoms require further evaluation. I confirmed the patient's understanding of this discussion. Critical Care Critical Care Time Critical Care Time: No
--- NOTE | 2023-11-09 15:18 | PC.NURSE ---
Dr. Morrison at [facility] for pt eval
[2023-11-09 15:28] LABS: Basophils # 0.1 K/mm3 (0-0.2); Basophils % 1.3 % (0.1-2.0); Eosinophils # 0.3 K/mm3 (0.0-0.4); Eosinophils % 3.2 % (0.1-12.0); Hematocrit 41.1 % (37.0-47.0); Lymphocytes # 2.3 K/mm3 (0.7-4.5); Lymphocytes % 27.7 % (10-50); Mean Corpuscular HGB Conc 31.5 g/dL (31.8-35.4); Mean Corpuscular Volume 82.6 fl (81-99); Mean Platelet Volume 7.4 fl (7.4-10.4); Monocytes # 0.4 K/mm3 (0.1-1.0); Monocytes % 4.9 % (1.7-9.3); Neutrophils # 5.3 K/mm3 (1.8-7.8); Neutrophils % 62.8 % (37.0-80.0); Platelet Count 331 K/mm3 (142-424); Red Blood Count 4.98 M/mm3 (4.20-5.40); Red Cell Distribution Width 14.6 % (11.5-17.5); White Blood Count 8.4 K/mm3 (4.8-10.8)
[2023-11-09] MEDS: BELLADONNA ALKALOIDS 60 ML ML PO (15:31)
[2023-11-09 15:32] LABS: Chloride 107 mmol/L (98-107)
[2023-11-09 15:33] LABS: Sodium 141 mmol/L (136-145)
[2023-11-09] MEDS: ONDANSETRON 4MG/2ML VIAL 4 MG IV (15:34)
[2023-11-09] MEDS: LACTATED RINGERS 1000ML 1,000 ML 999 ML IV (15:34)
[2023-11-09 15:36] LABS: Alanine Aminotransferase 19 U/L (12-78); Albumin Level 4.3 g/dl (3.5-5.0); Albumin/Globulin Ratio 1.3 (1.1-1.8); Alkaline Phosphatase 90 U/L (38-126); Aspartate Amino Transferase 25 U/L (14-36); Bilirubin,Total 0.5 mg/dl (0.2-1.3); Blood Urea Nitrogen 10 mg/dl (7-17); Calcium 9.4 mg/dl (8.4-10.2); Carbon Dioxide 28 mmol/L (22.0-30.0); Creatinine Clearance Estimated 148 mL/min (50-200); Estimated Glomerular Filt Rate 145 ml/min (>60); GFR (African American) 175 ML/MIN (>60); Globulin 3.4 g/dL (1.3-3.2); Glucose 97 mg/dl (74-100); Lipase 137 U/L (23-300); Total Protein,Serum 7.7 g/dl (6.3-8.2)
[2023-11-09 15:40] LABS: HCG Qualitative, Serum Negative (Negative)
[2023-11-09 15:52] LABS: Troponin I < 0.01 ng/ml (0.00-0.034)
[2023-11-09 16:00] VITALS: BP 105/69; PULSE 74; PULSE 81; RESP 14; RESP 18; TEMP 36.6; O2SAT 96
== END 2023-11-09 16:10 | disposition home or self-care (01) ==
PROVIDERS: Emergency Provider Emergency Medicine; PCP Internal Medicine
DX: R10.13 Epigastric pain (principal); R07.9 Chest pain, unspecified; I10 Essential (primary) hypertension; K21.9 Gastro-esophageal reflux disease without esophagitis
CPT/HCPCS: 80053; 83690; 84484; 84703; 85025; 93005; 96361; 96374; 99284; J2405

== ENCOUNTER 2023-11-15 18:00 | Outpatient (CLI) | payer MEDICAID, SELFPAY ==
[2023-11-15 20:21] LABS: Free Thyroxine Index 3.4 ug/dL (5.93-13.13); T4 (Thyroxine) 10.9 ug/dl (5.53-11.0); Triiodothryronine (T3) Uptake 31 % (23.5-40.5)
[2023-11-15 20:35] LABS: Thyroid Stimulating Hormone 0.61 uIU/mL (0.465-4.68)
[2023-11-17 13:26] LABS: Thyroid Peroxidase Antibodies <9 IU/mL (0-34)
== END 2023-11-15 23:59 | disposition home or self-care (01) ==
LOC: LAB.DROPOF 11-16 09:04
PROVIDERS: Visit Provider Family Medicine
DX: R79.89 Other specified abnormal findings of blood chemistry (principal); Z79.899 Other long term (current) drug therapy
CPT/HCPCS: 84436; 84443; 84479; 86376

== ENCOUNTER 2023-12-03 14:18 | Outpatient (CLI) | payer MEDICAID, SELFPAY ==
--- NOTE | 2023-12-03 14:18 | US_ITS ---
PROCEDURE: US TRANSVAGINAL CLINICAL INDICATION: pcos COMPARISON: No exams were available for comparison FINDINGS: Transvaginal and trans Abdominal sonographic images of the pelvis were obtained. UTERUS: 7.4cm x 4.3cmx 3.1cm anteverted with a combined endometrial thickness of 4.1mm. A small nabothian cyst is seen in the cervix. The uterus has an arcuate appearance. LEFT OVARY: 4.4cmx2.6 cmx2.3cm with a volume of 13.7ml. RIGHT OVARY: 2.4cmx 1.5cmx2.3cm with a volume of 3.2ml. Both ovaries are seen and appear normal. Doppler flow to both ovaries are seen. There is no fluid in the cul-de-sac. IMPRESSION: 1. Anteverted uterus normal in size. The endometrium is thin. Difficult examination. 2. The uterus has an arcuate appearance. 3. Both left and right ovaries are seen and appear normal although the left ovary could only be seen transabdominally. 4. No fluid in the cul-de-sac. Dictated by: Ariel Nicolas MD 12/03/2023 18:56 Ariel Nicolas MD in [place] 12/03/2023 18:56
== END 2023-12-03 23:59 | disposition home or self-care (01) ==
LOC: RAD 14:18
PROVIDERS: PCP Physician Assistant; Visit Provider Nurse Practitioner Obstetrics & Gynecology
DX: E28.2 Polycystic ovarian syndrome (principal)
CPT/HCPCS: 76830

== ENCOUNTER 2023-12-22 15:21 | Outpatient (CLI) | payer MEDICAID, SELFPAY ==
--- NOTE | 2023-12-22 15:22 | CT_ITS ---
FINAL REPORT TECHNIQUE: Axial images were obtained from the lung apex to the mid abdomen by computed tomography. Coronal reformatted images were obtained. This study was performed with techniques to keep radiation doses as low as reasonably achievable, (ALARA). Individualized dose reduction techniques using automated exposure control or adjustment of mA and/or kV according to the patient''s size were employed. CLINICAL HISTORY: lung nodule seen on chest xray COMPARISON: Chest x-ray 09/09/2023 FINDINGS: There are densely calcified right paratracheal and right hilar lymph nodes. Heart size is normal. There is no pericardial or pleural effusion. There are 2 adjacent noncalcified nodules in the right upper lobe measuring up to 5 mm in greatest dimension, best seen on images 86 and 87 of series 3. There is a distal calcified granuloma at the right lung base. There is a lobular nodule in the superior medial left breast measuring 1.2 cm best seen on image 45 of series 3. Limited images of the upper abdomen are unremarkable. IMPRESSION: Incidental noncalcified nodules in the right upper lobe measuring up to 5 mm. Fleischner's criteria does not apply due to age but recommend follow-up in 1 year. Left breast nodule. Cannot exclude neoplasm. Correlate with physical exam and mammography. Reviewed, Interpreted and Dictated by Carrillo Jessica MD Transcribed by Kimmy Anglin Authenticated and [facility]
== END 2023-12-22 23:59 | disposition home or self-care (01) ==
LOC: RAD 15:22
PROVIDERS: PCP Family Medicine; Visit Provider Family Medicine
DX: R91.1 Solitary pulmonary nodule (principal); R79.89 Other specified abnormal findings of blood chemistry; J84.10 Pulmonary fibrosis, unspecified; R33.9 Retention of urine, unspecified
CPT/HCPCS: 71250

== ENCOUNTER 2023-12-27 10:44 | Outpatient (CLI) | payer MEDICAID, SELFPAY ==
[2024-01-03 16:12] LABS: Atopobium vaginae Low - 0 Score (.); BVAB2 Low - 0 Score (.); Candida albicans NAA Positive (Negative); Candida glabrata Negative (Negative); Chlamydia Trachomatis NAA Negative (Negative); HSV 1 NAA Negative (Negative); HSV 2 NAA Negative (Negative); Megasphaera 1 Low - 0 Score (.); Neisseria gonorrhoeae NAA Negative (Negative); Trich vag NAA Negative (Negative)
== END 2023-12-27 23:59 | disposition home or self-care (01) ==
LOC: LAB.DROPOF 12-28 10:44
PROVIDERS: PCP Urology; Visit Provider Urology
DX: N39.3 Stress incontinence (female) (male) (principal); R35.0 Frequency of micturition
CPT/HCPCS: 87491; 87529; 87563; 87591; 87661; 87798; 87801

== ENCOUNTER 2023-12-30 14:16 | Outpatient (CLI) | payer MEDICAID, SELFPAY ==
--- NOTE | 2023-12-30 14:16 | US_ITS ---
FINAL REPORT CLINICAL HISTORY: Post void residual FINDINGS: Limited sonographic images of the bladder were obtained. Bladder filled measures 387 mL. Bladder postvoid measures 10 mL. Bilateral ureteral jets are identified. IMPRESSION: Small amount of postvoid residual. Reviewed, Interpreted and Dictated by Roberto Anton III, MD Transcribed by Sharri Johnson Authenticated and [facility]
== END 2023-12-30 23:59 | disposition home or self-care (01) ==
LOC: RAD 14:16
PROVIDERS: Visit Provider Urology
DX: R35.0 Frequency of micturition (principal); N39.3 Stress incontinence (female) (male)
CPT/HCPCS: 76857

== ENCOUNTER 2024-01-12 13:45 | Outpatient (CLI) | payer MEDICAID, SELFPAY ==
--- NOTE | 2024-01-12 13:45 | US_ITS ---
PROCEDURE INFORMATION: Exam: US Left Breast, Complete MG Bilateral Diagnostic Breast Tomosynthesis Exam date and time: 01/12/2024 2:09 PM Age: 28 years old Clinical indication: Patient recalled for further evaluation; Left breast; Abnormal findings on imaging; Breast nodule seen on CT TECHNIQUE: Imaging protocol: Complete ultrasound of all four quadrants of the left breast and the retroareolar regions, including ultrasound of the axilla when performed. Bilateral Diagnostic tomosynthesis and 2D mammography including computer-aided detection (CAD) when performed. Unilateral or bilateral exam. COMPARISON: MG MM DIG MAMM BI DX W/CAD 01/12/2024 1:45 PM FINDINGS: MAMMOGRAPHY: Breast composition: There are scattered areas of fibroglandular density. Breast mammogram findings: There is no stellate mass, architectural distortion or suspicious microcalcifications in either breast to suggest malignancy. No skin thickening or axillary adenopathy. ULTRASOUND: Breast ultrasound findings: Sonographic images of the left breast including the retroareolar region, all 4 quadrants and the axilla demonstrates a hypoechoic ovoid solid mass in the 10 o'clock axis 13 cm from the nipple not seen on mammography and measuring 1.4 x 1.4 x 0.8 cm in dimension. The finding may correlate with the CT report stating a 1.3 cm mass in the superomedial left breast. 0.4 cm cyst in the left 8 o'clock axis 3 cm from the nipple. No architectural distortion or acoustical shadowing. No skin thickening or axillary adenopathy. IMPRESSION: Sonographically detected indeterminate solid mass in the left upper inner quadrant. The finding is not seen on mammography. Ultrasound-guided core biopsy is recommended to ensure benign etiology. ASSESSMENT: BI-RADS Category 4: Suspicious.
[2024-01-12 15:28] LABS: Basophils # 0.1 K/mm3 (0-0.2); Basophils % 0.8 % (0.1-2.0); Eosinophils # 0.2 K/mm3 (0.0-0.4); Hematocrit 36.9 % (37.0-47.0); Hemoglobin 11.9 g/dL (12.2-16.2); Lymphocytes # 1.9 K/mm3 (0.7-4.5); Lymphocytes % 25.9 % (10-50); Mean Corpuscular HGB Conc 32.2 g/dL (31.8-35.4); Mean Corpuscular Hemoglobin 26.4 pg (27.0-31.2); Mean Corpuscular Volume 81.9 fl (81-99); Mean Platelet Volume 7.9 fl (7.4-10.4); Monocytes # 0.3 K/mm3 (0.1-1.0); Neutrophils # 4.9 K/mm3 (1.8-7.8); Neutrophils % 66.2 % (37.0-80.0); Platelet Count 354 K/mm3 (142-424); White Blood Count 7.5 K/mm3 (4.8-10.8)
[2024-01-12 16:14] LABS: Iron 49 ug/dL (37-170)
[2024-01-12 16:23] LABS: Total Iron Binding Capacity 361 ug/dL (265-497)
[2024-01-12 16:32] LABS: HCG,Quantitative < 2 mIU/ml (0-5.42)
[2024-01-12 16:33] LABS: Free Thyroxine Index 2.9 ug/dL (5.93-13.13); T4 (Thyroxine) 9.4 ug/dl (5.53-11.0); Triiodothryronine (T3) Uptake 31 % (23.5-40.5)
[2024-01-12 16:47] LABS: Thyroid Stimulating Hormone 0.38 uIU/mL (0.465-4.68)
== END 2024-01-12 23:59 | disposition home or self-care (01) ==
PROVIDERS: PCP Family Medicine; Visit Provider Family Medicine
DX: N63.22 Unspecified lump in the left breast, upper inner quadrant (principal); R79.89 Other specified abnormal findings of blood chemistry; E66.9 Obesity, unspecified; Z68.42 Body mass index [BMI] 45.0-49.9, adult
CPT/HCPCS: 36415; 76641; 77062; 77066; 83540; 83550; 84436; 84443; 84479; 84702; 85025; G0279

== ENCOUNTER 2024-02-07 07:18 | Outpatient (CLI) | payer MEDICAID, SELFPAY ==
--- NOTE | 2024-02-07 07:18 | US_ITS ---
FINAL REPORT CLINICAL HISTORY: breast mass -- LT BREAST CORE BX -- DR COMFORT MACHADO FINDINGS: ULTRASOUND-GUIDED LEFT BREAST CORE BIOPSY HISTORY: Left breast mass. Ultrasound directed biopsy. TECHNIQUE: The left breast was prepped in a routine sterile fashion and locally anesthetized with 1% lidocaine. Using sonographic guidance a 16 gauge needle was directed toward the lesion of interest. The needle was positioned within the outer periphery of the lesion. A total of 4 passes were made with a 16 gauge core biopsy needle. A biopsy marker clip was deployed in satisfactory position. Limited postbiopsy images showed no evidence of significant hemorrhage. Procedure was well tolerated. IMPRESSION: 1. Technically successful image guided biopsy of left breast lesion as above. 2. 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 Pathology is concordant with mammographic findings. Recommend 6-month sonographic follow-up as routine post benign biopsy surveillance Authenticated and [facility]
== END 2024-02-07 23:59 | disposition home or self-care (01) ==
LOC: RAD 07:18
PROVIDERS: PCP Family Medicine; Visit Provider Family Medicine
DX: N63.20 Unspecified lump in the left breast, unspecified quadrant (principal)
CPT/HCPCS: 19083

== ENCOUNTER 2024-03-10 07:18 | Day surgery (SDC) | payer MEDICAID, SELFPAY ==
[2024-03-08 11:44] VITALS: BMI 44.6
[2024-03-10 07:34] VITALS: BP 135/71; PULSE 78; RESP 18; TEMP 36.4; O2SAT 97; BMI 44.6
[2024-03-10] MEDS: LIDOCAINE 2% UROJET 10ML 10 ML UR (08:28)
[2024-03-10] MEDS: LACTATED RINGERS 1000ML 1,000 ML 25 ML IV (08:28)
--- NOTE | 2024-03-10 08:31 | P.PCN_ITS ---
[facility] Procedure Note Date: 03/10/24 Time: 08:31 Procedure Note:: Chart review: The patient is troubled with urinary frequency. She has been on estradiol and Ditropan. Her frequency continues, however. She has some mild issues with stress urinary incontinence. Preop diagnosis urinary frequency Postop diagnosis urinary frequency; urethritis; low bladder capacity Procedure: Patient was brought to the cystoscopy suite. She was prepped and draped in the standard fashion. She underwent catheterization for urine culture and sensitivity. The patient then underwent flexible cystoscopy. She has moderate urethritis. This contributes to the frequency sensation. Her bladder capacity is reduced to about 5 to 6 ounces. Her UOs are normal bilaterally with clear efflux of urine. She tolerated the procedure well. If the current medication approach does not help then she may be a candidate for Botox consideration.
--- NOTE | 2024-03-10 08:52 | P.PCN_ITS ---
[facility] Procedure Note Date: 03/10/24 Time: 08:52 Procedure Note:: Op note continuation: The patient's ureteral orifice ease are normal bilaterally with clear E flux of urine. There is no evidence of bladder stone tumor hemorrhage or infection.
[2024-03-10 09:45] LABS: Microscopic,Cath URINE MICROSCOPIC (MICROSCOPIC)
[2024-03-10 09:55] LABS: Appearance,Urine/Cath CLEAR (Clear); Bilirubin,Cath Negative (Negative); Blood, Urine/Cath Negative (Negative); Color,Urine/Cath YELLOW (Yellow); Glucose,Urine/Cath (UA) Negative (Negative); Ketones,Urine/Cath Negative (Negative); Leukocyte Esterase,Cath Negative (Negative); Nitrate,Cath Negative (Negative); Protein,Urine/Cath Negative (Negative); Urobilinogen,Cath 0.2 EU/dl (0.2)
[2024-03-10 10:16] LABS: Squamous Epithelial Ur./Cath Occasional #/hpf (0-5)
== END 2024-03-10 08:36 | disposition home or self-care (01) ==
PROVIDERS: PCP Family Medicine; Visit Provider Urology
PROC: 0TJB8ZZ Inspection of Bladder, Via Natural or Artificial Opening Endoscopic (ICD-10-PCS; CPT 52000; principal; 2024-03-10 08:15)
DX: R35.0 Frequency of micturition (principal); N39.3 Stress incontinence (female) (male); N34.2 Other urethritis; N31.8 Other neuromuscular dysfunction of bladder
CPT/HCPCS: 52000; 81001; J7120

== ENCOUNTER 2024-03-20 17:31 | Emergency (ER) | payer MEDICAID, SELFPAY ==
[2024-03-20 19:27] VITALS: BP 123/73; PULSE 77; RESP 16; TEMP 36.6; O2SAT 100; BMI 44.8
--- NOTE | 2024-03-20 19:41 | EXP.UTC ---
Discharge Plan Disposition Patient Disposition: Home, Self-Care Condition: Good Prescriptions Prescriptions: New fluticasone propionate [Flonase Allergy Relief] 50 mcg/actuation spray,suspension 2 spray intranasal DAILY Qty: 16 0RF Rx Instructions: administer into each nostril daily No Action pantoprazole 40 mg tablet,delayed release (DR/EC) 40 mg PO DAILY Qty: 90 0RF Rx Instructions: TAKE 1 TABLET BY MOUTH DAILY FOR GERD oxybutynin chloride 10 mg tablet extended release 24hr 10 mg PO DAILY 90 Days Qty: 90 0RF estradiol 0.01 % (0.1 mg/gram) cream See Rx Instructions vaginal .COMPLEX Qty: 42.5 2RF Rx Instructions: Using finger technique daily for two weeks and then twice weekly vaginally; spironolactone 50 mg tablet 50 mg PO DAILY Qty: 30 5RF lisinopril 10 mg tablet See Rx Instructions .ROUTE .COMPLEX Qty: 90 0RF Dose Instruction: TAKE 1 TABLET BY MOUTH DAILY FOR HIGH BLOOD PRESSURE Rx Instructions: TAKE 1 TABLET BY MOUTH DAILY FOR HIGH BLOOD PRESSURE famotidine [Acid Php Website Developer (famotidine)] 20 mg tablet 20 mg PO DAILY Qty: 90 2RF ferrous sulfate 325 mg (65 mg iron) tablet,delayed release (DR/EC) 325 mg PO DAILY Qty: 90 0RF levothyroxine 25 mcg tablet 25 mcg PO DAILY Qty: 90 2RF ondansetron 4 mg Tablet,Disintegrating 4 mg PO Q8H PRN (Reason: Nausea) Qty: 12 0RF Referrals Follow up/Referrals: Clare Laura APRN [Primary Care Provider] - See instructions Activity Restrictions/Add. Instructions Additional Instructions/Restrictions: *Monitor Temp, Over the counter Motrin or Tylenol as directed/as needed Tylenol every 4 hours and Motrin every 6 hours (as long as your family doctor has told you that you can take it) for fever or pain. and straight to ER if unable to lower temp less than 101.0 after medication given *Warm salt water gargles may help to soothe the throat *Throat Lozenges? *Warm fluids like tea with honey may help to soothe the throat? *Sleep elevated *Humidifier/Vaporizer *Flonase 2 sprays in each nostril daily but be aware that it may take 2-3 days before you notice improvement Follow up IMMEDIATELY for new or worsening symptoms or no Noticeable improvement over the next 48-72 hours. 911 for difficulty breathing or swallowing Clinical Impressions Clinical Impression: Eustachian tube dysfunction Instructions Patient Instructions: Sore Throat, DI for Eustachian Tube Dysfunction-Adult Print Language Print Language: Citizen Of [place] Discharge ED Provider: Zaynab Joseph [facility] HPI General Stated complaint: Sore throat,right earache Mode of Arrival: Ambulatory Source of Information: Patient Limitations: No Limitations Time Seen by Provider: 03/20/24 19:41 Description of Symptoms (Recalled from Triage Doc. by RN): Patient reports sore throat and right ear ache. HEENT Symptoms (Recalled from RN notes): Yes Resp Symptoms (Recalled from RN notes): No Skin Symptoms (Recalled from RN notes): No MS Symptoms (Recalled from RN notes): No Functional Status (Recalled from RN notes): wnl History of Present Illness Provider Complaint: patient states that she has been having sore throat and pain in her right ear with fullness States that strep throat is going around so she came in to get checked and tested Related Data Previous Rx's ?Medication ?Instructions ?Recorded ondansetron 4 mg disintegrating 4 mg PO Q8H PRN Nausea #12 tabs 08/03/23 tablet spironolactone 50 mg tablet 50 mg PO DAILY . #30 tabs 10/27/23 pantoprazole 40 mg tablet,delayed 40 mg PO DAILY GERD #90 tabs 11/15/23 release lisinopril 10 mg tablet See Rx Instructions .Route 01/19/24 .COMPLEX #90 tabs estradiol 0.01% (0.1 mg/gram) See Rx Instructions vaginal 01/24/24 vaginal cream .COMPLEX #42.5 grams oxybutynin chloride 10 mg 10 mg PO DAILY 90 days #90 tabs 01/24/24 tablet,extended release 24 hr famotidine 20 mg tablet (Acid 2
[2024-03-20 19:43] LABS: UTC Pregnancy Test, Urine Negative (Negative)
[2024-03-20 19:43] LABS: UTC Strep Screen (Rapid) Negative (Negative)
[2024-03-20 19:54] VITALS: BP 123/73; PULSE 77; RESP 16; TEMP 36.6; O2SAT 100
== END 2024-03-20 19:54 | disposition home or self-care (01) ==
PROVIDERS: Emergency Provider Nurse Practitioner; PCP Family Medicine
DX: H69.91 Unspecified Eustachian tube disorder, right ear (principal); R07.0 Pain in throat; H92.01 Otalgia, right ear
CPT/HCPCS: 81025; 87635; 87880; 99212; 99214; G0463

== ENCOUNTER 2024-05-05 09:30 | Outpatient (CLI) | payer BC, SELFPAY ==
[2024-05-05 18:52] LABS: T4 (Thyroxine) 10.5 ug/dl (5.53-11.0); Triiodothryronine (T3) Uptake 29 % (23.5-40.5)
[2024-05-05 20:06] LABS: Thyroid Stimulating Hormone 0.73 uIU/mL (0.465-4.68)
== END 2024-05-05 23:59 | disposition home or self-care (01) ==
LOC: LAB.DROPOF 05-06 10:12
PROVIDERS: PCP Family Medicine; Visit Provider Family Medicine
DX: R79.89 Other specified abnormal findings of blood chemistry (principal)
CPT/HCPCS: 84436; 84443; 84479

== ENCOUNTER 2024-05-12 08:18 | Outpatient (CLI) | payer BC, SELFPAY ==
[2024-05-12 09:54] LABS: Albumin Level 4.4 g/dl (3.5-5.0); Chloride 108 mmol/L (98-107); Potassium 4.3 mmoL/L (3.5-5.1); Sodium 139 mmol/L (136-145)
[2024-05-12 09:56] LABS: Chol/HDL Ratio 7.1 (1-3.5); Cholesterol 213 mg/dl (140-200); HDL Cholesterol 30 mg/dl (40-60); Triglycerides 160 mg/dl (30-150); VLDL Cholesterol 32 mg/dL (0-40)
[2024-05-12 09:56] LABS: Alanine Aminotransferase 23 U/L (12-78); Anion Gap 16.3 mEq/L (5-15); Aspartate Amino Transferase 25 U/L (14-36); Blood Urea Nitrogen 15 mg/dl (7-17); Carbon Dioxide 19 mmol/L (22.0-30.0); Estimated Glomerular Filt Rate 144 ml/min (>60); GFR (African American) 174 ML/MIN (>60)
[2024-05-12 09:57] LABS: Albumin/Globulin Ratio 1.5 (1.1-1.8); Alkaline Phosphatase 74 U/L (38-126); Bilirubin,Total 0.6 mg/dl (0.2-1.3); Calcium 9.4 mg/dl (8.4-10.2); Glucose 132 mg/dl (74-100); Total Protein,Serum 7.4 g/dl (6.3-8.2)
[2024-05-12 10:07] LABS: Direct LDL Cholesterol 137.59 mg/dL (100-129)
== END 2024-05-12 23:59 | disposition home or self-care (01) ==
PROVIDERS: PCP Family Medicine; Visit Provider Nurse Practitioner Obstetrics & Gynecology
DX: E28.2 Polycystic ovarian syndrome (principal); Z79.899 Other long term (current) drug therapy
CPT/HCPCS: 36415; 80053; 80061

== ENCOUNTER 2024-08-11 06:17 | Outpatient (CLI) | payer BC, SELFPAY ==
--- NOTE | 2024-08-11 06:38 | CT_ITS ---
FINAL REPORT TECHNIQUE: Noncontrast exam This study was performed with techniques to keep radiation doses as low as reasonably achievable, (ALARA). Individualized dose reduction techniques using automated exposure control or adjustment of mA and/or kV according to the patient's size were employed. CLINICAL HISTORY: worsening headaches COMPARISON: None FINDINGS: CT HEAD: No abnormal density is seen. Ventricles are normal. There is no hemorrhage. No mass effect is seen. Bone windows show no evidence of fracture. There are 2 separate mucous retention cysts or polyps present in the right maxillary sinus. IMPRESSION: No intracranial abnormality identified. 2 separate mucous retention cysts or polyps present in the right maxillary sinus. Reviewed, Interpreted and Dictated by Jessy Muniz MD Transcribed by Latonya Farias Authenticated and [facility]
--- NOTE | 2024-08-11 06:44 | US_ITS ---
PROCEDURE INFORMATION: Exam: US Left Breast, Complete Exam date and time: 08/11/2024 7:04 AM Age: 29 years old Clinical indication: Follow-up of a left breast biopsy TECHNIQUE: Imaging protocol: Complete ultrasound of all four quadrants of the left breast and the retroareolar regions, including ultrasound of the axilla when performed. COMPARISON: US BREAST LT COMPLETE 08/11/2024 7:04 AM FINDINGS: ULTRASOUND: Breast ultrasound findings: Sonographic images of the left breast including the retroareolar region, all 4 quadrants and the axilla do not demonstrate any suspicious solid or cystic masses. Stable previously biopsied benign left fibroadenoma in the 10 o'clock axis 13 cm from the nipple measuring 1.6 cm in greatest dimension. No architectural distortion or acoustical shadowing. No skin thickening or axillary adenopathy. IMPRESSION: No sonographic evidence of malignancy. Annual bilateral mammographic screening is recommended to commence at the age of 40 unless otherwise clinically indicated. ASSESSMENT: BI-RADS Category 2: Benign.
== END 2024-08-11 23:59 | disposition home or self-care (01) ==
PROVIDERS: PCP Family Medicine; Visit Provider Family Medicine
DX: R51.9 Headache, unspecified (principal); D24.2 Benign neoplasm of left breast
CPT/HCPCS: 70450; 76641

== ENCOUNTER 2024-10-27 09:22 | Outpatient (CLI) | payer BC, SELFPAY ==
[2024-10-27 10:15] LABS: Hemoglobin A1C 4.8 % (4.0-6.0)
[2024-10-27 10:45] LABS: Thyroid Stimulating Hormone 1.17 uIU/mL (0.465-4.68)
[2024-10-28 08:13] LABS: Estradiol 51.9 pg/mL (.); FSH 7.6 mIU/mL (.); Prolactin 10.6 ng/mL (4.8-33.4); Testosterone,Total 57 ng/dL (8-60)
[2024-10-29 11:09] LABS: Insulin Level Total 37.3 uIU/mL (2.6-24.9)
[2024-10-30 03:01] LABS: Anti Mullerian Hormone (AMH) 6.38 ng/mL (.)
== END 2024-10-27 23:59 | disposition home or self-care (01) ==
LOC: LAB 15:00
PROVIDERS: PCP Family Medicine; Visit Provider Obstetrics & Gynecology
DX: E28.2 Polycystic ovarian syndrome (principal); E55.9 Vitamin D deficiency, unspecified; E66.811 Obesity, class 1; Z68.41 Body mass index [BMI] 40.0-44.9, adult
CPT/HCPCS: 36415; 82397; 82626; 82670; 83001; 83036; 83498; 83525; 84146; 84403; 84443

== ENCOUNTER 2024-11-16 08:20 | Outpatient (CLI) | payer BC, SELFPAY ==
[2024-11-16 09:41] LABS: HCG,Quantitative < 2 mIU/ml (0-5.42)
== END 2024-11-16 23:59 | disposition home or self-care (01) ==
LOC: LAB 08:21
PROVIDERS: PCP Family Medicine; Visit Provider Obstetrics & Gynecology
DX: N97.9 Female infertility, unspecified (principal)
CPT/HCPCS: 36415; 84702

== ENCOUNTER 2024-11-17 10:37 | Outpatient (CLI) | payer BC, SELFPAY ==
--- NOTE | 2024-11-17 11:00 | FL_ITS ---
FINAL REPORT CLINICAL HISTORY: difficulty getting preg. 22ml isovue 370 .37 fluoro time 54.95mGy FINDINGS: FLUOROSCOPY LESS THAN 1 HOUR HISTORY: Fluoroscopy guidance. Fluoroscopic guidance was provided for hysterosalpingography. A total of 0.37 minutes of fluoroscopy time were used. Total DAP: 54.95 mGy IMPRESSION: As above. Reviewed, Interpreted and Dictated by Carrillo Jessica MD Transcribed by Kimmy Anglin Authenticated and [facility]
[2024-11-17] MEDS: IOPAMIDOL-370 (76%);100ML BOTTLE 22 ML IV (11:22)
--- NOTE | 2024-11-17 13:04 | P.PCN_ITS ---
[facility] Procedure Note Date: 11/17/24 Time: 11:00 Procedure Note:: Findings: bilateral patent fallopian tubes without hydrosalpinx. 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 Patient was positioned in the dorsal lithotomy position. Speculum was inserted. Cervix and vagina was cleansed with Hibiclens. Tenaculum was placed on anterior lip of the cervix. 20 cc of contrast was drawn up into a syringe and attached to the Giancarlo HSG cannula. Contrast was flushed through cannula to remove air bubbles and ensure patency. Cannula was then inserted into the cervix. Fluoroscopy was initiated with 15 cc of contrast injected into the endometrial cavity. Fluoroscopy demonstrated contrast immediately flowing from endometrial cavity through patient right fallopian tube. An additional 7 cc was flushed to reveal patency of the left fallopian tube. Cavity noted to have a didelphic appearance. Cannula was removed from the cervix. Tenaculum was removed from the cervix. Hemostasis was noted. Speculum removed from the vagina. Patient tolerated the procedure well. GALLO referral was made
== END 2024-11-17 23:59 | disposition home or self-care (01) ==
LOC: RAD 10:38
PROVIDERS: PCP Family Medicine; Visit Provider Obstetrics & Gynecology
DX: N97.9 Female infertility, unspecified (principal)
CPT/HCPCS: 74740; Q9967

== ENCOUNTER → 2024-12-01 10:54 | Outpatient (CLI) | payer BC, SELFPAY | LOC: SL 10:54 | PROVIDERS: PCP Family Medicine; Visit Provider Family Medicine | DX: G47.33 Obstructive sleep apnea (adult) (pediatric) (principal); R53.83 Other fatigue; R06.83 Snoring; R40.0 Somnolence | CPT/HCPCS: G0399 ==

== ENCOUNTER 2025-01-07 17:31 | Emergency (ER) | payer BC, SELFPAY ==
[2025-01-07] VITALS (9 sets, daily range): BP systolic 122–177; BP diastolic 70–110; PULSE 71–98; RESP 12–19; TEMP 36.6–37.1; O2SAT 96–100; BMI 43.4
--- NOTE | 2025-01-07 17:35 | XR_ITS ---
PROCEDURE INFORMATION: Exam: XR Right Ankle Exam date and time: 01/07/2025 5:48 PM Age: 29 years old Clinical indication: Injury or trauma; Fall; Blunt trauma; Ankle; Right; Additional info: Fall, deformity TECHNIQUE: Imaging protocol: Radiologic exam of the right ankle. Views: 3 or more views. COMPARISON: CR XR ANKLE RT MIN 3V 01/07/2025 5:48 PM FINDINGS: Bones/joints: Minimally displaced medial malleolus fracture. Minimally displaced distal fibular fracture. Nondisplaced posterior malleolus fracture. No dislocation Soft tissues: Normal. IMPRESSION: Trimalleolar fracture.
--- NOTE | 2025-01-07 17:35 | XR_ITS ---
PROCEDURE INFORMATION: Exam: XR Right Tibia and Fibula Exam date and time: 01/07/2025 5:48 PM Age: 29 years old Clinical indication: Injury or trauma; Fall; Blunt trauma; Lower leg; Right; Additional info: Fall, ankle deformity TECHNIQUE: Imaging protocol: Radiologic exam of the right tibia and fibula. Views: 2 views. COMPARISON: CR XR ANKLE RT MIN 3V 01/07/2025 5:48 PM FINDINGS: Bones/joints: Minimally displaced medial malleolus fracture. Minimally displaced distal fibular fracture. Nondisplaced posterior malleolus fracture. No dislocation Soft tissues: Normal. IMPRESSION: Trimalleolar fracture.
--- OUTSIDE RECORDS SUMMARY | 2025-01-07 17:35 | XMS_ITS | Encounter Summary ---
Author Organization [employer] Address [address] [place] [address] Care Team Providers Care Sinker Winder Name Role Phone Unavailable Primary Care Provider Unavailabl e Encounter Details Date Type Department Care Team (Late st Contact Info) Description 03/30/2019 Transcribed Document [facility] [place] [facility] [place] [address] ProviderGregoria MD [address] [place] [address] [id number] Social History Tobacco Use Types Packs/Day Years Used Date Smoking Tobacco: Never Assessed Comments Unknown Sex and Gender Information Value Date Recorded Sex Assigned at Not on file Legal Sex Female 6:39 PM CDT Gender Identity Not on file Sexual Orientation Not on file documented as of this encounter Miscellaneous Notes * Cerner Conversion Note - Gregoria Griffiths MD - 03/30/2019 8:02 AM CDT [facility] IntraOp Summary Primary Physician: WES THOMPSON MD-OBG Finalized Date/Time: 03/31/19 09:52:41 Pt. Name: CHARO SAPP/Sex: 1995 Female Med Rec #: [id number] Physician: WES THOMPSON MD-OBG Financial #: [id number] Pt. Type: O Room/Bed: Admit/Disch: 03/30/19 06:09:00 - 03/30/19 11:02:00 Institution: [facility] [place] IntraOp Case Attendance Entry 1 Entry 2 Entry 3 Case Attendee WES THOMPSON MD-OBG Ricardo Glaser RN RENFROE, REBECCA TRIPE WASHER Role Performed Surgeon/Proceduralist, Client Services Representative, First TRIPE WASHER/Nurse Desulphuring Operator First Time In 03/30/19 07:33:00 03/30/19 07:33:00 03/30/19 07:33:00 Time Out 03/30/19 09:30:00 03/30/19 09:30:00 03/30/19 09:30:00 Procedure Hysteroscopy Operative, Hysteroscopy Operative, Hysteroscopy Operative, Laparoscopy Diagnostic, Laparoscopy Diagnostic, Laparoscopy Diagnostic, Lysis Adhesions, Lysis Adhesions, Lysis Adhesions, Ovarian Cystectomy Ovarian Cystectomy Ovarian Cystectomy Laparoscopic Laparoscopic Laparoscopic Other Attendee Superficial Wound Closed By: Last Modified By: Ricardo Glaser RN Cutwright, Shawsta, RN Cutwright, Shawsta, RN 03/31/19 09:52:36 03/31/19 09:52:36 03/31/19 09:52:36 Entry 4 Entry 5 Entry 6 Case Attendee Loki Garcia, ST PRIYANK, NICHOLAS, ST ARIEL, PAO, FA Role Performed Scrub, First Scrub, Second Die Maker Trim, First Time In 03/30/19 07:33:00 03/30/19 07:33:00 03/30/19 07:33:00 Time Out 03/30/19 09:03:00 03/30/19 09:30:00 03/30/19 09:30:00 Procedure Hysteroscopy Operative, Hysteroscopy Operative, Hysteroscopy Operative, Laparoscopy Diagnostic, Laparoscopy Diagnostic, Laparoscopy Diagnostic, Lysis Adhesions, Lysis Adhesions, Lysis Adhesions, Ovarian Cystectomy Ovarian Cystectomy Ovarian Cystectomy Laparoscopic Laparoscopic Laparoscopic Other Attendee Superficial Wound Closed By: Last Modified By: Ricardo Glaser RN Cutwright, Shawsta, RN Cutwright, Shawsta, RN 03/31/19 09:52:36 03/31/19 09:52:36 03/31/19 09:52:36 Entry 7 Entry 8 Case Attendee Praneeth Bazan Cheryl B, RN Role Performed Laborer Salvage, Ancillary Client Services Representative, First Time In 03/30/19 07:33:00 03/30/19 08:58:00 Time Out 03/30/19 09:30:00 03/30/19 09:30:00 Procedure Hysteroscopy Operative, Hysteroscopy Operative, Laparoscopy Diagnostic, Laparoscopy Diagnostic, Lysis Adhesions, Lysis Adhesions, Ovarian Cystectomy Ovarian Cystectomy Laparoscopic Laparoscopic Other Attendee BREAK RELIEF Superficial Wound Closed By: Last Modified By: Ricardo Glaser RN Cutwright, Shawsta, RN 03/31/19 09:52:36 03/31/19 09:52:36 [facility] IntraOp Case Attendance Audit 03/31/19 09:52:36 Cab Driver: [email or web address] Modifier: [email or web address] 1 <*> Procedure Hysteroscopy Operative, Laparoscopy Diagnostic 2 <*> Procedure Hysteroscopy Operative, Laparoscopy Diagnostic 3 <*> Procedure Hysteroscopy Operative, Laparoscopy Diagnostic 4 <*> Procedure Hysteroscopy Operative, Laparoscopy Diagnostic 5 <*> Procedure Hysteroscopy Operative, Laparoscopy Diagnostic 6 <*> Procedure Hysteroscopy Operative, Laparoscopy Diagnostic 7 <*> Procedure Hysteroscopy Operative, Laparoscopy Diagnostic 8 <*> Procedure Hysteroscopy Operative, Laparoscopy Diagnostic 03/30/19 09:30:40 Cab Driver: [email or web address] Modifier: [email or web address] 1 <+> Time Out 1 <*> Procedure Hysteroscopy Operative, Laparoscopy Diagnostic 2 <+> Time Out 2 <*> Procedure Hysteroscopy Operative, Laparoscopy Diagnostic 3 <+> Time Out 3 <*> Procedure Hysteroscopy Operative, Laparoscopy Diagnostic 4 <*> Procedure Hysteroscopy Operative, Laparoscopy Diagnostic 5 <+> Time Out 5 <*> Procedure Hysteroscopy Operative, Laparoscopy Diagnostic 6 <+> Time Out 6 <*> Procedure Hysteroscopy Operative, Laparoscopy Diagnostic 7 <+> Time Out 7 <*> Procedure Hysteroscopy Operative, Laparoscopy Diagnostic 8 <+> Time Out 8 <*> Procedure Hysteroscopy Operative, Laparoscopy Diagnostic 03/30/19 09:08:32 Cab Driver: [email or web address] Modifier: [email or web address] 1 <+> Time In 1 <*> Procedure Hysteroscopy Operative, Laparoscopy Diagnostic 2 <+> Time In 2 <*> Procedure Hysteroscopy Operative, Laparoscopy Diagnostic 3 <+> Time In 3 <*> Procedure Hysteroscopy Operative, Laparoscopy Diagnostic 4 <+> Time In 4 <+> Time Out 4 <*> Procedure Hysteroscopy Operative, Laparoscopy Diagnostic 5 <+> Time In 5 <*> Procedure Hysteroscopy Operative, Laparoscopy Diagnostic 6 <+> Time In 6 <*> Procedure Hysteroscopy Operative, Laparoscopy Diagnostic 7 <+> Time In 7 <*> Procedure Hysteroscopy Operative, Laparoscopy Diagnostic <+> 8 Case Attendee <+> 8 Role Performed <+> 8 Time In <+> 8 Procedure <+> 8 Other Attendee [facility] IntraOp Case Times Entry 1 Patient In Room Time 03/30/19 07:33:00 Out Room Time 03/30/19 09:30:00 Anesthesia Start Time 03/30/19 07:33:00 Stop Time 03/30/19 09:30:00 Anesthesia Ready 03/30/19 07:33:00 Surgery / Procedure Times Start Time 03/30/19 08:02:00 Stop Time 03/30/19 09:23:00 Last Modified By: Ricardo Glaser RN 03/30/19 09:30:38 [facility] IntraOp Case Times Audit 03/30/19 09:30:38 Cab Driver: [email or web address] Modifier: [email or web address] <+> 1 Out Room Time <+> 1 Stop Time 03/30/19 09:25:51 Cab Driver: [email or web address] Modifier: [email or web address] <+> 1 Stop Time [facility] Cautery Entry 1 ESU Identification Cautery Type Monopolar ESU ID Number [id number] ID Type Hospital Number Cautery Settings Cut Setting 70 Coag Setting 30 ESU Grounding Pad Grounding Pad Site Right Lower Abdomen Grounding Pad Ricardo Glaser RN Applied By Grounding Pad Site Warm, dry and intact Skin Condition Before Cautery Last Modified By: Ricardo Glaser RN 03/30/19 08:20:13 [facility] IntraOp Communication Entry 1 Communication To Other Comment COMMUNICATION BOARD Last Modified By: Ricardo Glaser RN 03/30/19 08:12:52 [facility] IntraOp Counts Verification Entry 1 Entry 2 Entry 3 Procedure Hysteroscopy Operative, Hysteroscopy Operative, Hysteroscopy Operative, Laparoscopy Diagnostic, Laparoscopy Diagnostic, Laparoscopy Diagnostic, Lysis Adhesions, Lysis Adhesions, Lysis Adhesions, Ovarian Cystectomy Ovarian Cystectomy Ovarian Cystectomy Laparoscopic Laparoscopic Laparoscopic Count Info Count Type Sponge, Sharps Sponge, Sharps Sponge, Sharps Counts Verification Baseline/pre-procedure Baseline/pre-procedure Closure of cavity Sequence within a cavity Count Results Correct, surgeon Correct, surgeon Correct, surgeon notified notified notified If Incorrect or Waived complete the Counts Action Taken form: If Intentional Retention, complete the Intential Retention form: Counts Performed By Count Performed By Loki Garcia ST TAYLOR, SARAH, ST Doneghy, Karri, ST (Scrub) Count Performed By Ricardo Glaser RN Cutwright, Shawsta, RN Cutwright, Shawsta, RN (RN) Last Modified By: Ricardo Glaser RN Cutwright, Shawsta, RN Cutwright, Shawsta, RN 03/31/19 09:52:38 03/31/19 09:52:38 03/31/19 09:52:38 [facility] IntraOp Counts Verification Audit 03/31/19 09:52:38 Cab Driver: [email or web address] Modifier: [email or web address] 1 <*> Procedure Hysteroscopy Operative, Laparoscopy Diagnostic 2 <*> Procedure Hysteroscopy Operative, Laparoscopy Diagnostic 3 <*> Procedure Hysteroscopy Operative, Laparoscopy Diagnostic 03/30/19 09:01:06 Cab Driver: [email or web address] Modifier: [email or web address] <+> 3 Procedure <+> 3 Count Type <+> 3 Counts Verification Sequence <+> 3 Count Results <+> 3 Count Performed By (Scrub) <+> 3 Count Performed By (RN) [facility] IntraOp Counts Final Entry 1 Procedure Hysteroscopy Operative, Laparoscopy Diagnostic, Lysis Adhesions, Ovarian Cystectomy Laparoscopic Final Count Info Count Type Sponge, Sharps, Miscellaneous Counts Verification Skin Closure/end of Sequence procedure Count Results Correct, surgeon notified Counts Performed By Count Performed By NICHOLAS YOST ST (Scrub) Count Performed By Caren Pagan, (RN) RN Last Modified By: Ricardo Glaser RN 03/31/19 09:52:40 [facility] IntraOp Counts Final Audit 03/31/19 09:52:40 Cab Driver: [email or web address] Modifier: [email or web address] 1 <*> Procedure Hysteroscopy Operative, Laparoscopy Diagnostic 03/30/19 09:19:32 Cab Driver: [email or web address] Modifier: [email or web address] 1 <*> Procedure Hysteroscopy Operative, Laparoscopy Diagnostic 1 <+> Count Performed By (RN) 1 <+> Counts Verification Sequence [facility] Intra[facility] Cultures and Spec Summary Entry 1 Cultrures and Specimens Specimen Ordered: Yes Test(s) Routine/Path-Lab Requested/Final Disposition Last Modified By: Ricardo Glaser RN 03/30/19 08:13:34 [facility] IntraOp Departure from OR Entry 1 Integumentary Assessment Integumentary WDL Assessment WDL Transfer/Handoff Transfer to PACU Phase I Handoff Method Bedside/Face to face Post-op Transport Stretcher/Gurney Via Patient Transport Ricardo Glaser RN, Accompanied by DAMEON MACKEY CRNA Last Modified By: Ricardo Glaser RN 03/30/19 08:13:42 [facility] Intra[facility] Dressing and Packing Entry 1 Type Dressing Location ABDOMEN Wound Dressing Item 2x2's Applied By PAO GEORGE FA Last Modified By: Ricardo Glaser RN 03/30/19 08:14:20 [facility] IntraOp Fire Risk Assessment Entry 1 Fire Info Surgical Site or 0- No Incision Above the Xyphoid Open O2 Source 0- No (Mask or Cannula) Available Ignition 1- Yes (ESU, Laser, Light Source) Fire Risk 1 Assessment Score Fire Score Fire Risk Yes Assessment Complete Fire Risk Ricardo Glaser RN Assessment Verified By Fire Risk 03/30/19 08:01:00 Assessment Verified Date/Time Fire Risk High Risk Protocol Yes Implemented Standard Fire Yes Safety Precautions Followed Last Modified By: Ricardo Glaser RN 03/30/19 08:14:24 [facility] IntraOp General Case Slinger Sequins 1 Case Information OR OR 04 [facility] Case Level 1 Room Verified Yes Wound Class II - Clean-Contaminated Specialty SN Gynecology Anesthesia Type General ASA Class 2 Diagnosis Preop Diagnosis UTERINE SEPTUM Postop Same As Preop Yes Postop Diagnosis UTERINE SEPTUM Last Modified By: Ricardo Glaser RN 03/30/19 08:14:38 [facility] Intraoperative Assessment Entry 1 Valid History / Yes Physical in Chart Preoperative Yes Checklist Reviewed/Evaluated Allergies Reviewed Yes Patient is Latex No Sensitive Level of WDL Consciousness (WDL = Alert, Oriented to Person, Place, and Time) Skin Assessment Yes Verified Present Upon IVs Arrival to OR Last Modified By: Ricardo Glaser RN 03/30/19 08:14:42 [facility] IntraOp Intraoperative Equipment Entry 1 Type Equipment Equipment Intraop Monitoring Antiembolic Devices Antiembolic Devices Sequential compression device, knee high Antiembolic Device Bilateral Location Scopes Photo/Video Documentation Last Modified By: Ricardo Glaser RN 03/30/19 08:18:18 [facility] IntraOp Medication Admin Entry 1 Medication/Irrigant Marcaine 0.25% w/ epinephrine 1:200,000 30ml vial - [id number] Route of LOCAL Administration Dose Volume QS Administered By WES THOMPSON MD-OBG Procedure Irrigation Last Modified By: Ricardo Glaser RN 03/30/19 08:18:46 [facility] IntraOp Patient Positioning Entry 1 Procedure Laparoscopy Diagnostic, Lysis Adhesions, Ovarian Cystectomy Laparoscopic Body Position Lithotomy Left Arm Position Secured on padded arm board Right Arm Position Secured on padded arm board Left Leg Position Secured in stirrup Right Leg Position Secured in stirrup Feet Uncrossed Yes Pressure Points Yes Checked Positioning Devices Arm Board, Pillows, Stirrups/Leg Jones, Sling Positioned By WES THOMPSON MD-OBG, Ricardo Glaser RN Position Verified Positioning Yes Verified by Anesthesia Positioning Yes Verified by Surgeon Last Modified By: Ricardo Glaser RN 03/31/19 09:52:39 [facility] IntraOp Patient Positioning Audit 03/31/19 09:52:39 Cab Driver: [email or web address] Modifier: [email or web address] 1 <*> Procedure Laparoscopy Diagnostic [facility] IntraOp Sign In Entry 1 Patient, Site, Yes Procedure Identified Surgical Consent Yes Confirmed Relevant Surgical Yes Documents Available Surgical Site N/A Marked by person performing procedure Anesthesia Machine Yes Check Completed Medication Checks Yes Completed Allergies Yes Airway Difficult No Airway/Aspiration Risk Difficult Yes Airway/Aspiration Intervention Equipment Available Blood Loss Risk No Blood Loss No Intervention Equipment Prepared and Ready Blood Identifiers Not applicable Verified Per Policy Hypothermia Risk No Warming Measures Yes Taken Last Modified By: Ricardo Glaser RN 03/30/19 08:19:15 [facility] Intra Op Sign Out Entry 1 RN Confirmation Surgical Yes Procedure(s) Identified Instrument, Sponge Yes and Sharps Counts Correct/Documented Equipment Problems Yes Documented Specimen Labeled Yes Correctly Urinary Catheter N/A Documented in IView Ny Patient Yes Recovery Concerns Reviewed with Anesthesia Provider, Surgeon and RN Ny Patient Yes Management Concerns Reviewed with Anesthesia Provider, Surgeon and RN Safety Checklist Yes Elements Complete? RN Sign Out Ricardo Glaser RN Signature RN Sign Out 03/30/19 09:01:00 Signature Date/Time Plan of Care Outcome - Fire Risk OUTCOME STATEMENT: Goal met Patient is free from injury related to surgical fire Plan of Care Outcome - Pt Positioning OUTCOME STATEMENT: Goal met Absence of signs and symptoms of positioning injury. Plan of Care Outcome - Skin Prep OUTCOME STATEMENT: Goal met Intraoperative care is consistent with measures to prevent infection Plan of Care Outcome - Xray/Images OUTCOME STATEMENT: N/A Absence of observable signs or symptoms of radiation injury Plan of Care Outcome - Counts OUTCOME STATEMENT: Goal met Absence of signs and symptoms of injury related to extraneous objects Last Modified By: Ricardo Glaser RN 03/30/19 09:01:14 [facility] Intra Op Sign Out Audit 03/30/19 09:01:14 Cab Driver: [email or web address] Modifier: [email or web address] <+> 1 RN Sign Out Signature Date/Time [facility] IntraOp Skin Prep Entry 1 Procedure Lysis Adhesions, Ovarian Cystectomy Laparoscopic Prescribed N/A Pre-Surgical Prep Completed Prep Area VAGINA/ABDOMEN Intraop Prep Integumentary WDL Assessment WDL Prep Agents Betadine scrub, Chloraprep Prep by Ricardo Glaser RN Hair Removal Last Modified By: Ricardo Glaser RN 03/31/19 09:52:39 [facility] IntraOp Skin Prep Audit 03/31/19 09:52:39 Cab Driver: [email or web address] Modifier: [email or web address] <+> 1 Procedure [facility] IntraOp Surgical Procedures Entry 1 Entry 2 Entry 3 Procedure Hysteroscopy Operative Laparoscopy Diagnostic Lysis Adhesions Modifiers Additional HYSTEROSCOPIC RESECTION Procedure OF LARGE UTERINE SEPTUM Description WITH DIAGNOSTIC LAPAROSCOPY, LYSIS OF ADHESIONS,REPAIR OF HYSTEROTOMY, EXCISION OF PERITUBAL CYST, RIGHT Primary Procedure Yes No No Primary Surgeon WES THOMPSON MD-OBG WES THOMPSON MD-OBG WES THOMPSON MD-OBG Start 03/30/19 08:02:00 03/30/19 08:02:00 03/30/19 08:02:00 Stop 03/30/19 09:23:00 03/30/19 09:23:00 03/30/19 09:23:00 Physician States Cecum Reached Anesthesia Type General General General Specialty SN Gynecology SN Gynecology SN Gynecology Wound Class II - Clean-Contaminated I - Clean I - Clean Last Modified By: Ricardo Glaser RN Cutwright, Shawsta, RN Cutwright, Shawsta, RN 03/30/19 09:25:56 03/30/19 09:25:56 03/31/19 09:52:30 Entry 4 Procedure Ovarian Cystectomy Laparoscopic Modifiers Additional Procedure Description Primary Procedure No Primary Surgeon WES THOMPSON MD-OBG Start 03/30/19 08:02:00 Stop 03/30/19 09:23:00 Physician States Cecum Reached Anesthesia Type General Specialty SN Gynecology Wound Class I - Clean Last Modified By: Ricardo Glaser RN 03/31/19 09:52:30 [facility] IntraOp Surgical Procedures Audit 03/31/19 09:52:30 Cab Driver: [email or web address] Modifier: [email or web address] <+> 3 Procedure <+> 3 Primary Procedure <+> 3 Primary Surgeon <+> 3 Specialty <+> 3 Start <+> 3 Stop <+> 3 Wound Class <+> 3 Anesthesia Type <+> 4 Procedure <+> 4 Primary Procedure <+> 4 Primary Surgeon <+> 4 Specialty <+> 4 Start <+> 4 Stop <+> 4 Wound Class <+> 4 Anesthesia Type 03/30/19 09:25:56 Cab Driver: [email or web address] Modifier: [email or web address] <+> 1 Stop <+> 2 Stop 03/30/19 09:19:19 Cab Driver: [email or web address] Modifier: [email or web address] 1 <*> Procedure Hysteroscopy Operative 1 <*> Additional Procedure Description HYSTEROSCOPIC RESECTION OF LARGE UTERINE SEPTUM WITH DIAGNOSTIC LAPAROSCOPY, LYSIS OF ADHESIONS 03/30/19 09:05:29 Cab Driver: [email or web address] Modifier: [email or web address] 1 <*> Procedure Hysteroscopy Operative 1 <*> Additional Procedure Description HYSTEROSCOPIC RESECTION OF LARGE UTERINE SEPTUM WITH LAPAROSCOPIC BACK UP [facility] IntraOp Time Out Entry 1 Procedure to be Hysteroscopy Operative, Performed Laparoscopy Diagnostic, Lysis Adhesions, Ovarian Cystectomy Laparoscopic Time Out Time Out Pause Time 03/30/19 08:01:00 All activity Yes suspended (unless life threatening emergency) Team Verbally Correct patient Confirms Information identity, Correct side and site are marked, Consent form is present and accurate, Agreement on the procedure to be done, Correct patient position, Confirm antibiotics have been administered, Confirm the skin prep has dried, Confirm prosthesis/implant/devic e is present, Performed in location of procedure after prepped/draped, Performed before each procedure if multiple procedures Antibiotic Yes Prophylaxis Administered Or In Progress Within the Last 60 Minutes Beta Xiang N/A Administered Venous Yes Thromboembolism Prophylaxis Required Anticipated Critical Events Surgeon None expected Anesthesia Provider None expected Nursing Assures Sterility of instruments, Equipment concerns or issues, Implant Availability Essential Imaging N/A Labeled and Displayed Last Modified By: Ricardo Glaser RN 03/31/19 09:52:39 [facility] Time Out Audit 03/31/19 09:52:39 Cab Driver: [email or web address] Modifier: [email or web address] 1 <*> Procedure to be Performed Hysteroscopy Operative, Laparoscopy Diagnostic Case Comments <None> Finalized By: Ricardo Glaser RN Document Signatures Signed By: Melisa Velasquez RN 03/31/19 08:38 Ricardo Glaser RN 03/30/19 09:30 Ricardo Glaser RN 03/31/19 09:52 Unfinalized History Date/Time Username Reason for Unfinalizing Freetext Reason for Unfinalizing 03/31/19 08:38 HIRAMR Chart Audit 03/31/19 09:51 AMBIKA Correct Documentation documented in this encounter Plan of Treatment Not on file documented as of this encounter Visit Diagnoses Not on filedocumented in this encounter
--- OUTSIDE RECORDS SUMMARY | 2025-01-07 17:35 | XMS_ITS | Encounter Summary ---
Author Organization [employer] Address [address] [place] [address] Care Team Providers Care Bi Solutions Architect Name Role Phone Unavailable Primary Care Provider Unavailabl e Encounter Details Date Type Department Care Team (Late st Contact Info) Description 03/29/2019 Transcribed Document [facility] [place] [facility] [place] [address] ProviderGregoria MD [address] [place] [id number] Social History Tobacco Use Types Packs/Day Years Used Date Smoking Tobacco: Never Assessed Comments Unknown Sex and Gender Information Value Date Recorded Sex Assigned at Not on file Legal Sex Female 6:39 PM CDT Gender Identity Not on file Sexual Orientation Not on file documented as of this encounter Miscellaneous Notes * Cerner Conversion Note - Gregoria Griffiths MD - 03/29/2019 2:45 PM CDT PAT Adult Entered On: 03/29/2019 14:49 EDT Performed On: 03/29/2019 14:45 EDT by Connie Dickinson, FELIZ Vital Measurements Temperature Source : Temporal artery scanning Temperature Mode : Fahrenheit Temperature, Fahrenheit : 97.7 Deg F Clinical Temperature, C : 36.5 Deg C Pulse Method : Non-Invasive BP Device Pulse Source : Brachial, Right Peripheral Pulse Rate : 72 bpm Pulse Rhythm : Regular Respiratory Rate : 20 Breaths/Min Blood Pressure Location : Arm, right upper Blood Pressure Source : Non-Invasive BP Device Blood Pressure Position : Sitting Systolic Blood Pressure : 141 mmHg (HI) Diastolic Blood Pressure : 86 mmHg Oxygen Saturation : 99 % Oxygen Therapy Mode : Room air Connie Dickinson RN - 03/29/2019 14:45 EDT Height and Weight, Clinical Dosing Height Source : Stated Height Entry Format : [place] Height, Feet : 5 ft(Converted to: 152 cm, 60 Inch) Height, Inches : 6 Inch(Converted to: 0 ft 6 Inch, 15.24 cm) Clinical Height : 167.64 cm Weight Source : Standing scale Weight Entry Format : [place] Clinical Dosing Weight : 106.36 kg Weight, Pounds : 234 lb Body Surface Area (BSA) : 2.14 m2 Body Mass Index : 37.8 kg/m2 (HI) [place] Body Weight : 59 kg Connie Dickinson RN - 03/29/2019 14:45 EDT Health Histories Smoking Status : Never (less than 100 in lifetime; none in last 30 days) Smokeless Tobacco Status : Never Connie Dickinson RN - 03/29/2019 14:45 EDT Social History (As Of: 03/29/2019 14:49:04 EDT) Tobacco: Never (less than 100 in lifetime) Smoking Status. Never Smokeless Tobacco Status. (Last Updated: 03/29/2019 14:47:05 EDT by Connie Dickinson RN) Alcohol: Alcohol Use History No. Alcohol Use Frequency Socially. (Last Updated: 03/29/2019 14:47:05 EDT by Connie Dickinson RN) Substance Abuse: Drug Use Hx: No. (Last Updated: 03/29/2019 14:47:05 EDT by Connie Dickinson RN) Infectious Disease History Infectious Disease History : Mononucleosis Isolation Needed : Standard Fever/Chills Last 48 Hours : No Travel To Regions with Travel Advisories : No Travel Outside [place] Within Last 30 Days : No Contact With Traveler to Advisory Region : No Tuberculosis Symptoms : None Connie Dickinson RN - 03/29/2019 14:45 EDT Anesthesia/Transfusion History Family History of Anesthesia Reaction : No prior transfusion(s) Transfusion History : Prior anesthesia without reaction Family History of Anesthesia Reaction : None Connie Dickinson RN - 03/29/2019 14:45 EDT Functional Assessment Functional ADL Evaluation Index EBN Bathing : Independent (2) Dressing : Independent (2) Toileting : Independent (2) Transferring Bed or Chair : Independent (2) Continence : Independent (2) Feeding : Independent (2) Connie Dickinson RN - 03/29/2019 14:45 EDT ADL Index Score : 12 Connie Dickinson RN - 03/29/2019 14:45 EDT Advance Directive Patient has Advance Directive *Q : No, patient refuses Advance Directive information Connie Dickinson RN - 03/29/2019 14:45 EDT Psychosocial History Do You Have a History of the Following? : Patient denies history Currently in Unsafe Situation : No Tried to Harm Yourself in the Past? : No Thoughts of Harming/Killing Yourself : No Connie Dickinson RN - 03/29/2019 14:45 EDT Teaching/Learning Assessment Barriers To Learning : None evident Individuals Taught : Patient Readiness to Learn : Cooperative Connie Dickinson RN - 03/29/2019 14:45 EDT Education Topics, Periop Preadmission Perioperative Education Grid Arrival Time/Place : Verbalizes understanding Infection Control : Verbalizes understanding NPO Status/Directions : Verbalizes understanding Preprocedure Preparations : Verbalizes understanding Preprocedure Tests/Labs : Verbalizes understanding Responsible Adult : Verbalizes understanding Take/Hold Medications Pre-Procedure : Verbalizes understanding Connie Dickinson RN - 03/29/2019 14:45 EDT General Info Want Family/Rep/Phys Notified of Admit : No Emergency Contact #1 : Sariah Emergency Contact #1 Emergency Contact #1 Relationship : mother Emergency Contact #2 : . Emergency Contact #2 Phone Number : . Emergency Contact #2 Relationship : . Information Obtained From : Patient Primary Language : Setswana Preferred Communication Mode : Verbal Communication Barrier : None Connie Dickinson RN - 03/29/2019 14:45 EDT Alpesh Scale Alpesh Sensory Perception : No impairment Alpesh Moisture : Rarely moist Alpesh Activity : Walks occasionally Alpesh Mobility : No limitation Alpesh Nutrition : Adequate Alpesh Friction and Shear : No apparent problem Alpesh Score : 21 Connie Dickinson RN - 03/29/2019 14:45 EDT Sleep Apnea Risk Assmt Hx of Obstructive Sleep Apnea Diagnosis : No Snore Loudly : Yes Tired, Fatigued, or Sleepy During Day : No Observed Stopping Breathing During Sleep : No Have/Are Being Treated for Hypertension : Yes BMI Greater Than 35 kg/m2 : Yes Age over 50 Years Old : No Gender Male : No Connie Dickinson RN - 03/29/2019 14:45 EDT documented in this encounter Plan of Treatment Not on file documented as of this encounter Visit Diagnoses Not on filedocumented in this encounter
--- OUTSIDE RECORDS SUMMARY | 2025-01-07 17:35 | XMS_ITS | Encounter Summary ---
Author Organization [employer] Address [address] [place] [address] Care Team Providers Care Reel Man Name Role Phone Unavailable Primary Care Provider Unavailabl e Encounter Details Date Type Department Care Team (Late st Contact Info) Description 03/30/2019 Transcribed Document [facility] [place] [facility] [place] [address] ProviderGregoria MD [address] [place] [address] [id number] Social History Tobacco Use Types Packs/Day Years Used Date Smoking Tobacco: Never Assessed Comments Unknown Sex and Gender Information Value Date Recorded Sex Assigned at Not on file Legal Sex Female 6:39 PM CDT Gender Identity Not on file Sexual Orientation Not on file documented as of this encounter Miscellaneous Notes * Cerner Conversion Note - Gregoria Griffiths MD - 03/30/2019 6:49 AM CDT Pre Procedure Adult Entered On: 03/30/2019 6:53 EDT Performed On: 03/30/2019 6:49 EDT by Gely Love Rn Height and Weight, Clinical Dosing Height Source : Stated Height Entry Format : [place] Height, Feet : 5 ft(Converted to: 152 cm, 60 Inch) Height, Inches : 6 Inch(Converted to: 0 ft 6 Inch, 15.24 cm) Clinical Height : 167.64 cm Weight Source : Standing scale Weight Entry Format : [place] Clinical Dosing Weight : 103.64 kg Weight, Pounds : 228 lb Body Surface Area (BSA) : 2.12 m2 Body Mass Index : 36.9 kg/m2 (HI) [place] Body Weight : 59 kg Gely Love Rn - 03/30/2019 6:49 EDT Health Histories Smoking Status : Never (less than 100 in lifetime; none in last 30 days) Smokeless Tobacco Status : Never Implant/Device Type, Plasterer Tender and Model : [email or web address] Gely Love Rn - 03/30/2019 6:49 EDT Social History (As Of: 03/30/2019 06:53:21 EDT) Tobacco: Never (less than 100 in lifetime) Smoking Status. Never Smokeless Tobacco Status. (Last Updated: 03/29/2019 14:47:05 EDT by oCnnie Dickinson RN) Alcohol: Alcohol Use History No. Alcohol Use Frequency Socially. (Last Updated: 03/29/2019 14:47:05 EDT by Connie Dickinson RN) Substance Abuse: Drug Use Hx: No. (Last Updated: 03/29/2019 14:47:05 EDT by Connie iDckinson RN) Infectious Disease History Infectious Disease History : Mononucleosis Isolation Needed : Standard Fever/Chills Last 48 Hours : No Travel To Regions with Travel Advisories : No Travel Outside [place] Within Last 30 Days : No Contact With Traveler to Advisory Region : No Tuberculosis Symptoms : None Gely Love Rn - 03/30/2019 6:49 EDT Anesthesia/Transfusion History Family History of Anesthesia Reaction : No prior transfusion(s) Transfusion History : Prior anesthesia without reaction Family History of Anesthesia Reaction : None Gely Love Rn - 03/30/2019 6:49 EDT Functional Assessment Living Situation : Home Patient Lives With : Parent(s) Persons Assisting Patient at Home : Parent(s) Current Daily Living Assistance : None Sensory Deficits : None Mobility Assistance Prior to Admission : Independent EL Hx Falls Immediate/Within 3 Months : No Current Home Treatments : None Home Equipment : None Professional Skilled Services : None Special Services and Community Resources : None Gely Love Rn - 03/30/2019 6:49 EDT Psychosocial History Do You Have a History of the Following? : Patient denies history Currently in Unsafe Situation : No Tried to Harm Yourself in the Past? : No Thoughts of Harming/Killing Yourself : No Gely Love Rn - 03/30/2019 6:49 EDT Advance Directive Patient has Advance Directive *Q : No, patient refuses Advance Directive information Gely Love Rn - 03/30/2019 6:49 EDT Spiritual/Cultural Needs Any Spiritual/Cultural Needs or Requests : No Gely Love Rn - 03/30/2019 6:49 EDT Teaching/Learning Assessment Barriers To Learning : None evident Individuals Taught : Patient Readiness to Learn : Cooperative Readiness to Learn : Explanation Learning Style Preferences Patient : None Learning Style Preferences Family : None Gely Love Rn - 03/30/2019 6:49 EDT Education Topics, Periop Preadmission Perioperative Education [place] : Verbalizes understanding Infection Control : Verbalizes understanding IV's : Verbalizes understanding NPO Status/Directions : Verbalizes understanding Pain Management : Verbalizes understanding Postoperative Care Preparations : Verbalizes understanding Preprocedure Preparations : Verbalizes understanding Preprocedure Tests/Labs : Verbalizes understanding Remove Body Piercings : Verbalizes understanding Gely Love Rn - 03/30/2019 6:49 EDT General Info Arrived From : Home Mode of Arrival on Unit : Ambulatory Patient Arrival Date/Time : 03/30/2019 5:55 EDT Legal Guardian : Mother Want Family/Rep/Phys Notified of Admit : No Emergency Contact #1 : Sariah Emergency Contact #1 Emergency Contact #1 Relationship : mother Emergency Contact #2 : . Emergency Contact #2 Phone Number : . Emergency Contact #2 Relationship : . Information Obtained From : Patient Primary Language : Telugu Preferred Communication Mode : Verbal Communication Barrier : None Currently Lactating : No Status : Patient denies Gely Love Rn - 03/30/2019 6:49 EDT Sleep Apnea Risk Assmt Hx of Obstructive Sleep Apnea Diagnosis : No Snore Loudly : Yes Tired, Fatigued, or Sleepy During Day : No Observed Stopping Breathing During Sleep : No Have/Are Being Treated for Hypertension : Yes BMI Greater Than 35 kg/m2 : Yes Age over 50 Years Old : No Neck Circumference Greater Than 40 cm : No Gender Male : No STOP-BANG Sleep Apnea Risk Level Score : 3 Gely Love Rn - 03/30/2019 6:49 EDT Alpesh Scale Alpesh Sensory Perception : No impairment Alpesh Moisture : Rarely moist Alpesh Activity : Walks frequently Alpesh Mobility : No limitation Alpesh Nutrition : Adequate Alpesh Friction and Shear : No apparent problem Alpesh Score : 22 Gely Love Rn - 03/30/2019 6:49 EDT Oxygen Therapy Oxygen Therapy Mode : Room air Gely Love Rn - 03/30/2019 6:49 EDT Pain Assessment Pain Assessment : Initial assessment Pain Scale Goal : 4 Pain Scale Used : 0-10 Scale Gely Love Rn - 03/30/2019 6:49 EDT Fall Risk Scales ABCs Fall Injury Risk Identification : None EL Hx Falls Immediate/Within 3 Months : No El Secondary Diagnosis : No EL Use of Ambulatory Aid : None EL IV Therapy or IV Access : Yes El Gait/Transferring : Normal, bedrest, immobile El Mental Status : Oriented to own ability El Fall Risk Score : 20 EL Fall Scale Risk Level : 0-24 Low Risk [place] Fall Interventions : Adequate lighting, Bed in low position, Call device within reach, Room free of clutter/spills, Upper side-rails up, Wheels locked Gely Love Rn - 03/30/2019 6:49 EDT Fall Risk Education Grid Call light use : Verbalizes understanding Nonskid Footwear Use : Verbalizes understanding Prevention Responsibility Patient : Verbalizes understanding Gely Love Rn - 03/30/2019 6:49 EDT Barriers to Learning : None evident Individuals Taught : Patient Readiness to Learn : Cooperative Teaching Method : Explanation Learning Style Preferences Family : None Learning Style Preferences Patient : None Gely Love Rn - 03/30/2019 6:49 EDT Education Topics, Day of Surgery DayofSurgery Education Grid Fall Risks : Verbalizes understanding Family Instructions : Verbalizes understanding Infection Control : Verbalizes understanding Infection Risks : Verbalizes understanding IV's : Verbalizes understanding Medication Instructions : Verbalizes understanding Pain Management : Verbalizes understanding Plan of Care : Verbalizes understanding Gely Love Rn - 03/30/2019 6:49 EDT Valuables and Belongings Valuables and Belongings : Clothing, Jewelry Clothing : Common streetwear Clothing Disposition : With family Jewelry : [place] Jewelry Disposition : With family Gely Love Rn - 03/30/2019 6:49 EDT Pain Scale Intensity : 0 Gely Love Rn - 03/30/2019 6:49 EDT Image 4 - Images currently included in the form version of this document have not been included in the text rendition version of the form. Luis Coma Luis Best Motor Response : Obey commands Luis Best Verbal Response : Oriented Luis Eye Opening Response : Spontaneous Luis Coma Score : 15 Gely Love Rn - 03/30/2019 6:49 EDT documented in this encounter Plan of Treatment Not on file documented as of this encounter Visit Diagnoses Not on filedocumented in this encounter
--- OUTSIDE RECORDS SUMMARY | 2025-01-07 17:35 | XMS_ITS | Encounter Summary ---
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 - [address] [place] [address] José Miguel Beach MD [address] [place] [address] Social History Tobacco Use Types Packs/Day Years Used Date Smoking Tobacco: Never Smokeless Tobacco: Never Alcohol Use Standard Drinks/Week Comments Not Currently 0 (1 standard drink = 0.6 oz pur e alcohol) Comments No Sex and Gender Information Value Date Recorded Sex Assigned at Not on file Legal Sex Female 6:39 PM CDT Gender Identity Not on file Sexual Orientation Not on file documented as of this encounter Plan of Treatment Not on file documented as of this encounter Visit Diagnoses Not on filedocumented in this encounter
--- OUTSIDE RECORDS SUMMARY | 2025-01-07 17:35 | XMS_ITS | Encounter Summary ---
Author Organization [email or web address] Address [address] [place] [address] Care Team Providers Care Journal Entry Audit Clerk Name Role Phone Unavailable Primary Care Provider Unavailabl e Encounter Details Date Type Department Care Team (Late st Contact Info) Description 03/30/2019 Transcribed Document [facility] Family Medicine [facility] [place] [address] ProviderGregoria MD [address] [place] [address] [phone] Social History Tobacco Use Types Packs/Day Years Used Date Smoking Tobacco: Never Assessed Comments Unknown Sex and Gender Information Value Date Recorded Sex Assigned at Not on file Legal Sex Female 6:39 PM CDT Gender Identity Not on file Sexual Orientation Not on file documented as of this encounter Miscellaneous Notes * Cerner Conversion Note - Gregoria Griffiths MD - 03/30/2019 10:32 AM CDT Patient Education Materials Follows: Diagnostic Laparoscopy, Care After This sheet gives you information about how to care for yourself after your procedure. Your health care provider may also give you more specific instructions. If you have problems or questions, contact your health care provider. What can I expect after the procedure? After the procedure, it is common to have: ??? Mild discomfort in the abdomen. ??? Sore throat. Women who have laparoscopy with pelvic examination may have mild cramping and fluid coming from the vagina for a few days after the procedure. Follow these instructions at home: Medicines ??? Take eiys-hge-zhvykot and prescription medicines only as told by your health care provider. ??? If you were prescribed an antibiotic medicine, take it as told by your health care provider. Do not stop taking the antibiotic even if you start to feel better. Driving ??? Do not drive for 24 hours if you were given a medicine to help you relax (sedative) during your procedure. ??? Do not drive or use heavy machinery while taking prescription pain medicine. Bathing ??? Do not take baths, swim, or use a hot tub until your health care provider approves. You may take showers. Incision care ??? Follow instructions from your health care provider about how to take care of your incisions. Make sure you: ? Wash your hands with soap and water before you change your bandage (dressing). If soap and water are not available, use hand climatology teacher. ? Change your dressing as told by your health care provider. ? Leave stitches (sutures), skin glue, or adhesive strips in place. These skin closures may need to stay in place for 2 weeks or longer. If adhesive strip edges start to loosen and curl up, you may trim the loose edges. Do not remove adhesive strips completely unless your health care provider tells you to do that. ??? Check your incision areas every day for signs of infection. Check for: ? Redness, swelling, or pain. ? Fluid or blood. ? Warmth. ? Pus or a bad smell. Activity ??? Return to your normal activities as told by your health care provider. Ask your health care provider what activities are safe for you. ??? Do not lift anything that is heavier than 10 lb (4.5 kg), or the limit that you are told, until your health care provider says that it is safe. General instructions ??? To prevent or treat constipation while you are taking prescription pain medicine, your health care provider may recommend that you: ? Drink enough fluid to keep your urine pale yellow. ? Take kjwf-gjg-vunlhzs or prescription medicines. ? Eat foods that are high in fiber, such as fresh fruits and vegetables, whole grains, and beans. ? Limit foods that are high in fat and processed sugars, such as fried and sweet foods. ??? Do not use any products that contain nicotine or tobacco, such as cigarettes and e-cigarettes. If you need help quitting, ask your health care provider. ??? Keep all follow-up visits as told by your health care provider. This is important. Contact a health care provider if: ??? You develop shoulder pain. ??? You feel lightheaded or faint. ??? You are unable to pass gas or have a bowel movement. ??? You feel nauseous or you vomit. ??? You develop a rash. ??? You have redness, swelling, or pain around any incision. ??? You have fluid or blood coming from any incision. ??? Any incision feels warm to the touch. ??? You have pus or a bad smell coming from any incision. ??? You have a fever or chills. Get help right away if: ??? You have severe pain. ??? You have vomiting that does not go away. ??? You have heavy bleeding from the vagina. ??? Any incision opens. ??? You have trouble breathing. ??? You have chest pain. Summary ??? After the procedure, it is common to have mild discomfort in the abdomen and a sore throat. ??? Check your incision areas every day for signs of infection. ??? Return to your normal activities as told by your health care provider. Ask your health care provider what activities are safe for you. This information is not intended to replace advice given to you by your health care provider. Make sure you discuss any questions you have with your health care provider. Document Released: 06/22/2016 Document Revised: 01/05/2018 Document Reviewed: 01/05/2018 [employer] Interactive Patient Education ? 2019 [employer] General Anesthesia, Adult, Care After This sheet gives you information about how to care for yourself after your procedure. Your health care provider may also give you more specific instructions. If you have problems or questions, contact your health care provider. What can I expect after the procedure? After the procedure, the following side effects are common: ??? Pain or discomfort at the IV site. ??? Nausea. ??? Vomiting. ??? Sore throat. ??? Trouble concentrating. ??? Feeling cold or chills. ??? Weak or tired. ??? Sleepiness and fatigue. ??? Soreness and body aches. These side effects can affect parts of the body that were not involved in surgery. Follow these instructions at home: For at least 24 hours after the procedure: ??? Have a responsible adult stay with you. It is important to have someone help care for you until you are awake and alert. ??? Rest as needed. ??? Do not: ? Participate in activities in which you could fall or become injured. ? Drive. ? Use heavy machinery. ? Drink alcohol. ? Take sleeping pills or medicines that cause drowsiness. ? Make important decisions or sign legal documents. ? Take care of children on your own. Eating and drinking ??? Follow any instructions from your health care provider about eating or drinking restrictions. ??? When you feel hungry, start by eating small amounts of foods that are soft and easy to digest (bland), such as toast. Gradually return to your regular diet. ??? Drink enough fluid to keep your urine pale yellow. ??? If you vomit, rehydrate by drinking water, juice, or clear broth. General instructions ??? If you have sleep apnea, surgery and certain medicines can increase your risk for breathing problems. Follow instructions from your health care provider about wearing your sleep device: ? Anytime you are sleeping, including during daytime naps. ? While taking prescription pain medicines, sleeping medicines, or medicines that make you drowsy. ??? Return to your normal activities as told by your health care provider. Ask your health care provider what activities are safe for you. ??? Take tlqu-ykk-yfnnvea and prescription medicines only as told by your health care provider. ??? If you smoke, do not smoke without supervision. ??? Keep all follow-up visits as told by your health care provider. This is important. Contact a health care provider if: ??? You have nausea or vomiting that does not get better with medicine. ??? You cannot eat or drink without vomiting. ??? You have pain that does not get better with medicine. ??? You are unable to pass urine. ??? You develop a skin rash. ??? You have a fever. ??? You have redness around your IV site that gets worse. Get help right away if: ??? You have difficulty breathing. ??? You have chest pain. ??? You have blood in your urine or stool, or you vomit blood. Summary ??? After the procedure, it is common to have a sore throat or nausea. It is also common to feel tired. ??? Have a responsible adult stay with you for the first 24 hours after general anesthesia. It is important to have someone help care for you until you are awake and alert. ??? When you feel hungry, start by eating small amounts of foods that are soft and easy to digest (bland), such as toast. Gradually return to your regular diet. ??? Drink enough fluid to keep your urine pale yellow. ??? Return to your normal activities as told by your health care provider. Ask your health care provider what activities are safe for you. This information is not intended to replace advice given to you by your health care provider. Make sure you discuss any questions you have with your health care provider. Document Released: 10/18/2001 Document Revised: 02/25/2018 Document Reviewed: 02/25/2018 [employer] Interactive Patient Education ? 2019 [employer] documented in this encounter Plan of Treatment Not on file documented as of this encounter Visit Diagnoses Not on filedocumented in this encounter
--- OUTSIDE RECORDS SUMMARY | 2025-01-07 17:35 | XMS_ITS | Referral Summary ---
Author Organization [employer] Address [address] [place] [address] Care Team Providers Care Surgery Scheduling Coordinator Name Role Phone Unavailable Primary Care Provider Unavailabl e Allergies No known active allergies Medications ProAir HFA 90 mcg/actuation inhaler Inhale 2 puffs by mouth via inhaler every 6 (six) hours as needed. 04/07/2022 Active lisinopriL (PRINIVIL,ZESTR IL) 10 MG tablet Take 10 mg by mouth daily. 05/26/2022 Active pantoprazole (PROTONIX) 40 MG tablet Take 40 mg by mouth daily. 05/26/2022 Active medroxyPROGESTE Felipe (Provera) 10 MG tabletIndicatio ns:Anovulatory amenorrhea 1 tablet po BID x 5 days each month. 30 tablet 1 10/20/2022 Active spironolactone (ALDACTONE) 50 MG tablet TAKE 1 TABLET BY MOUTH DAILY 90 tablet 1 03/11/2023 Active Active Problems Problem Noted Date Diagnosed Date Hypertension 11/19/2020 Irregular menstrual cycle 11/19/2020 Metabolic syndrome 11/19/2020 Morbid (severe) obesity due to excess calories 0 11/19/2020 Gastroesophageal reflux disease 06/14/2019 Social History Tobacco Use Types Packs/Day Years Used Date Smoking Tobacco: Never Smokeless Tobacco: Never Tobacco Cessation:Counseling Given: Not Answered Alcohol Use Standard Drinks/Week Comments Not Currently 0 (1 standard drink = 0.6 oz pur e alcohol) Interpersonal Safety Answer Date Record ed Family or friends hurt you Not on file 08/13 Family or friends insult you Not on file Family or friends threaten you Not on file 0 08/13/2023 Family or friends scream or curse at you Not on file 08/13/2023 Housing Stability Answer Date Recorded Living situation today Not on file Living situation problems Not on file 2023 Food Insecurity Answer Date Recorded Food run out past 12 months Not on file 07/26 Food did not last past 12 months Not on file 08/13/2023 Employment Answer Date Recorded Help finding and keeping a job Not on file 0 08/13/2023 Family and Community Support Answer Garrison e Recorded Help with Day to Day Activities Not on file 08/13/2023 Feeling Lonely or Isolated Not on file 08/13 Educational Attainment Answer Date Chente rded Speak language other than Portuguese at home Not on file 08/13/2023 Want help with school or training Not on file 08/13/2023 Depression Answer Date Recorded PHQ-2 Risk Not on file 08/13/2023 Disabilities Answer Date Recorded Difficulty concentrating Not on file 024 Difficulty doing errands alone Not on file 0 08/13/2023 Substance Use Answer Date Recorded Used prescription meds for non-medical reasons N ot on file 08/13/2023 Used illegal drugs past 12 months Not on file 08/13/2023 Comments No Sex and Gender Information Value Date Recorded Sex Assigned at Not on file Legal Sex Female 6:39 PM CDT Gender Identity Not on file Sexual Orientation Not on file Last Filed Vital Signs Vital Sign Reading Time Taken Comments Blood Pressure 110/78 10/20/2022 2:39 PM EDT Pulse 92 10/20/2022 2:39 PM EDT Temperature - - Respiratory Rate 18 10/20/2022 2:39 PM EDT Oxygen Saturation - - Inhaled Oxygen Concentration - - Weight 114.8 kg (253 lb) 10/20/2022 2:39 PM EDT Height 165.1 cm (5' 5 ) 10/20/2022 2:39 PM EDT Body Mass Index 42.1 10/20/2022 2:39 PM EDT Plan of Treatment Not on file Insurance [facility]
--- OUTSIDE RECORDS SUMMARY | 2025-01-07 17:35 | XMS_ITS | Clinical Summary ---
Author Organization [employer] Address [address] [place] [address] Care Team Providers Care Top Executive Name Role Phone Unavailable Primary Care Provider [...] Date Chente rded Speak language other than Japanese at home Not on file 08/13/2023 Want [...] 10/20/2022 2:39 PM EDT Plan of Treatment Health Maintenance Due Date Last Done Comments Depression Screening (12+) 2005 HIV Screening 02/17/2008 Hepatitis C Screening 2011 Lipid Panel 2013 Pap Smear 2014 Tobacco Cessation Counseling and Screening (12+) 10/21/2023 10/20/2022 COVID-19 VACCINE (3 - 2023-2 5 season) 2024 04/28/2021, 04/07/2021 Influenza Vaccine (Season Ended) 2025 05/13/2020, 04/18/2010 DTAP/TDAP/TD VACCINES (3 - T d or Tdap) 04/27/2025 04/27/2015, 04/18/2010 Pneumococcal Vaccine: 0-49 Years Aged Out No longer eligible b ased on patient's age to complete this topic Insurance [facility]
--- OUTSIDE RECORDS SUMMARY | 2025-01-07 17:35 | XMS_ITS | Encounter Summary ---
Author Organization [employer] Address [address] [place] [address] Care Team Providers Care Model Photographers' Name Role Phone Unavailable Primary Care Provider Unavailabl e Encounter Details Date Type Department Care Team (Late st Contact Info) Description 03/30/2019 Transcribed Document [facility] [place] [facility] [place] [address] ProviderGregoria MD [address] [place] [address] [phone] Social History Tobacco Use Types Packs/Day Years [...] 03/30/2019 8:02 AM CDT [facility] Main OR PACU Summary Primary Physician: WES THOMPSON MD-OBG Finalized Date/Time: 03/30/19 10:12:35 Pt. Name: CHARO SAPP/Sex: 1995 Female Med Rec #: [id number] Physician: WES THOMPSON MD-OBG Financial #: [id number] Pt. Type: O Room/Bed: Admit/Disch: 03/30/19 06:09:00 - Institution: [facility] PACU Case Times Entry 1 In PACU I 03/30/19 09:32:00 Ready for PACU 03/30/19 10:17:00 Discharge Discharge from PACU 03/30/19 10:17:00 I Last Modified By: DAGO ISAAC 03/30/19 10:12:19 Finalized By: DAGO ISAAC Document Signatures Signed By: DAGO ISAAC 03/30/19 10:12 Electronically signed by [facility] Conversion Dental Receptionist Cerner at 11/13/2022 11:17 AM CDT documented in this encounter Plan of Treatment Not on file documented as of this encounter Visit Diagnoses Not on filedocumented in this encounter
--- OUTSIDE RECORDS SUMMARY | 2025-01-07 17:35 | XMS_ITS | Encounter Summary ---
Author Organization [employer] Address [address] [place] [address] Care Team Providers Care Frame Stylist Name Role Phone Unavailable Primary Care Provider Unavailabl e Encounter Details Date Type Department Care Team (Late st Contact Info) Description 03/30/2019 Transcribed Document [facility] Family [place] [address] ProviderGregoria MD [address] [place] [address] [phone] Social History Tobacco Use Types Packs/Day Years Used Date Smoking Tobacco: Never Assessed Comments Unknown Sex and Gender Information Value Date Recorded Sex Assigned at Not on file Legal Sex Female 6:39 PM CDT Gender Identity Not on file Sexual Orientation Not on file documented as of this encounter Miscellaneous Notes * Cerner Conversion Note - Gregoria Griffiths MD - 03/30/2019 9:20 AM CDT DATE OF PROCEDURE: 03/30/2019 SURGEON: José Miguel Beach MD INDUSTRIAL HIRE SALES ASSISTANT: Dylan Jacob PREOPERATIVE DIAGNOSIS(ES): 1. Uterine anomaly. 2. Uterine subseptate uterus. 3. History of labor with breech presentation. 4. Essential hypertension. POSTOPERATIVE DIAGNOSIS(ES): 1. Uterine anomaly. 2. Uterine subseptate uterus. 3. History of labor with breech presentation. 4. Essential hypertension. 5. Extensive abdominal adhesions and right paratubal cyst. PROCEDURE: 1. Diagnostic laparoscopy. 2. Diagnostic hysteroscopy. 3. Resection of uterine septum. 4. Lysis of extensive abdominal adhesions. 5. Excision of right paratubal cyst. COMPLICATION: Uterine perforation. IDENTIFICATION: Patient is a pleasant 24-year-old female with the uterine anomaly, had to have a prematurely with labor with a subseptate uterus. Workup evaluation was consistent with the above finding with 3D ultrasounds, etc. plus the time of of the uterine septum. Decision for resection was made. We talked about the risks of the surgery was outlined in detail in the preop clinic notes. The patient was aware of all those issues and concerns. PROCEDURE DESCRIPTION: Patient was taken to the operating room, underwent general endotracheal anesthesia, placing her in the Maurice stirrups with pneumatic compression stockings functioning. We prepped and draped the abdominal vaginal cavity in the routine fashion. Carbajal catheter was inserted. We placed a Hulka tenaculum cervix for uterine manipulation as the time-out was completed and correct. We went above and begun the hysteroscopic portion by making a 5 mm incision infraumbilically and bringing in the 5 mm trocar. Once we were intraperitoneal, we hooked up the high-flow CO2 insufflation. The patient placed in Trendelenburg position and we then placed two more ports but there was a lot of adhesions, omental adhesions from the anterior abdominal wall down to the back of the uterus. The uterus was adhered with a couple adhesions to the anterior abdominal wall but we placed the two lateral ports about two fingerbreadths superior over the iliac crest on each side. With all ports in place, we could see we had normal appendix. The liver was smooth. Gallbladder was normal. We had all the adhesions noted. We brought in the Harmonic Scalpel and on high energy current we very carefully took down these very dense omental adhesions to the anterior abdominal wall. Once these were cleared up, we saw that we had normal tubes and we did have the right paratubal cyst. The retro-ovarian fossas was normal. No evidence of any disease. We went ahead and removed the right paratubal cyst with the aid of the Harmonic Scalpel transecting the base of the paratubal cyst, was taken out through the port and sent to Pathology. We then went below and grabbed the cervix with single-tooth tenaculum. We dilated the cervix to a medium size Evans dilator, but we did have low perforation in the posterior wall but we were able to complete the procedure. The uterine septum was easily visualized on 70 garza of pure cut energy. We very carefully transected the uterine septum with my speech language pathologist assistant looking from above to make sure that we had no blanching of the uterine wall which we did. The procedure was then terminated. Once we got the septum resected, we sent some fragments to Pathology. The procedure was then terminated. After we received all the fragments, I went above and the area at the back of the uterus is a little bit oozy. We touched it with a Kleppinger and then I brought in after we upsized the right lower abdominal port to a 10. We brought in a 0 V-Loc suture and we placed a ylhxay-ot-dfqgy suture in that uterine wall perforation just to give us more secure closure for future and it was in the posterior aspect of the uterus on the right lower fundus posterior aspect of the uterus. We had good hemostasis. We dropped the pressure down to 7 cm of pressure. We had good hemostasis as we irrigated the pelvis profusely. We left about 50 mL of saline. We then terminated the procedure by release of the CO2. The Storz ligature care was used with the cone instrument to close the right 10 mm fascial defect very loosely and then the skin was injected with Marcaine 0.5% Marcaine with and closed with 4-0 Monocryl in a subcuticular fashion. The patient was taken in the postop care room in satisfactory condition. ESTIMATED BLOOD LOSS: Again, was 20 mL or less. José Miguel Beach M.D. Dict: 03/30/2019 09:20:55 Trans: 03/30/2019 10:38:59 CC1: José Miguel Beach M.D. Electronically signed by Rochelle [employer] Conversion Lithographic Press Operator Apprentice Nikitaner at 11/13/2022 11:12 AM CDT documented in this encounter Plan of Treatment Not on file documented as of this encounter Visit Diagnoses Not on filedocumented in this encounter
--- OUTSIDE RECORDS SUMMARY | 2025-01-07 17:35 | XMS_ITS | Clinical Summary ---
Author Organization [facility] Address [facility] [place] [address] Care Team Providers Care Roll On Man Name Role Phone Pcp, No Primary Care Provider [phone] Source Comments This information has been disclosed to you from confidential records protectedfrom disclosure by state law. You shall make no further disclosure of thisinformation without the specific, written, and informed release of theindividual to whom it pertains, or as otherwise permitted by law. A generalauthorization for the release of medical or other information is not sufficientfor the purposes of therelease of HIV test results or diagnoses. [id number] Health Encounters Date Type Department Care Team Description 11/30/2024 Chart Note [facility] Reproductive Endocrinology and Infertility at [facility] [address] [place], [place] [id number] MattaJl guzman MD LM WITH PATIENT TO CALL FOR AN APPOINTMENT. from Last 3 Months Social History Tobacco Use Types Packs/Day Years Used Date Smoking Tobacco: Never Assessed Comments Unknown Sex and Gender Information Value Date Recorded Sex Assigned at Not on file Legal Sex Female 1:31 PM EDT Gender Identity Not on file Sexual Orientation Not on file Plan of Treatment Health Maintenance Due Date Last Done Comments Hepatitis C Screening (MyChart) 1995 Alcohol Misuse Screening 2011 Depression Screening 2011 HIV Screening 2011 Immunization: DTaP/Tdap/Td ( 1 - Tdap) 02/17/2012 Immunization: Hepatitis B (1 of 3 - 19+ 3-dose series) 02/17/2012 Cervical Cancer Screening/Pa p Smear (MyChart) 2023 Immunization: COVID-19 ( - 2023- season) 2024 Immunization: Influenza (MyC alexander) (Season Ended) 2025 Immunization: Pneumococcal Aged Out N o longer eligible based on patient's age to complete this topic Insurance [employer] Care Teams Roll On Man Relationship Specialty Start Date End Date Pcp, No No Address PCP - General 12/05/24
--- OUTSIDE RECORDS SUMMARY | 2025-01-07 17:35 | XMS_ITS | Encounter Summary ---
Author Organization [employer] Address [address] [place] [address] Care Team Providers Care Semiconductor Wafers Etch Operator Name Role Phone Unavailable Primary Care Provider Unavailabl e Encounter Details Date Type Department Care Team (Late st Contact Info) Description 03/30/2019 Transcribed Document [facility] [place] [facility] [place] [address] ProviderGregoria MD [address] [place] [address] [phone] Social History Tobacco Use Types Packs/Day Years [...] 03/30/2019 8:02 AM CDT [facility] PreOp Summary Primary Physician: WES THOMPSON MD-OBG Finalized Date/Time: 03/30/19 09:55:31 Pt. Name: CHARO SAPP/Sex: 1995 Female Med Rec #: [id number] Physician: WES THOMPSON MD-OBG Financial #: [id number] Pt. Type: O Room/Bed: Admit/Disch: 03/30/19 06:09:00 - Institution: [facility] [place] PreOp Case Times Entry 1 In Preop 03/30/19 05:55:00 Ready for Holding n/a Room Patient Ready for 03/30/19 07:06:00 Surgery Patient Out of Preop 03/30/19 07:27:00 Patient Out of n/a Holding Room Last Modified By: SUDHEER GREENE RN 03/30/19 09:55:25 [place] PreOp Case Times Audit 03/30/19 09:55:25 Boat Ride Operator: [email or web address] Modifier: [email or web address] <+> 1 Patient Out of Preop Finalized By: SUDHEER GREENE, RN Document Signatures Signed By: SUDHEER GREENE RN 03/30/19 09:55 Electronically signed by Alla [facility] Conversion Supervisor Composing Room Cerner at 11/13/2022 11:14 AM CDT documented in this encounter Plan of Treatment Not on file documented as of this encounter Visit Diagnoses Not on filedocumented in this encounter
--- OUTSIDE RECORDS SUMMARY | 2025-01-07 17:35 | XMS_ITS | Encounter Summary ---
Author Organization [employer] Address [address] [place] [address] Care Team Providers Care Forensic Science Examiner Name Role Phone Unavailable Primary Care Provider Unavailabl e Encounter Details Date Type Department Care Team (Late st Contact Info) Description 03/30/2019 Transcribed Document [facility] [place] [facility] [place] [address] ProviderGregoria MD [address] [place] [address] [phone] Social History Tobacco Use Types Packs/Day Years [...] 03/30/2019 8:02 AM CDT [facility] PostOp Summary Primary Physician: WES THOMPSON MD-OBG Finalized Date/Time: 03/30/19 11:13:18 Pt. Name: CHARO SAPP/Sex: 1995 Female Med Rec #: [id number] Physician: WES THOMPSON MD-OBG Financial #: [id number] Pt. Type: O Room/Bed: Admit/Disch: 03/30/19 06:09:00 - Institution: [facility] PostOp Case Times Entry 1 In PACU II 03/30/19 10:17:00 Ready for PACU II 03/30/19 11:02:00 Discharge Discharge from PACU 03/30/19 11:02:00 II Last Modified By: LILA SZYMANSKI RN 03/30/19 11:13:13 [facility] OR PostOp Case Times Audit 03/30/19 11:13:13 Animal Rides Manager: COLEMAM Modifier: [email or web address] <+> 1 Ready for PACU II Discharge <+> 1 In PACU II <+> 1 Discharge from PACU II 03/30/19 10:12:07 Animal Rides Manager: COLEMAM Modifier: COLEMAM 1 <-> Ready for PACU II Discharge 03/30/19 10:16:00 1 <-> In PACU II 03/30/19 09:32:00 1 <-> Discharge from PACU II 03/30/19 10:16:00 Finalized By: LILA SZYMANSKI RN Document Signatures Signed By: LILA SZYMANSKI RN 03/30/19 11:13 documented in this encounter Plan of Treatment Not on file documented as of this encounter Visit Diagnoses Not on filedocumented in this encounter
--- OUTSIDE RECORDS SUMMARY | 2025-01-07 17:35 | XMS_ITS | Encounter Summary ---
Author Organization [employer] Address [address] [place] [address] Care Team Providers Care Tool And Die Maker/Designer Name Role Phone Unavailable Primary Care Provider Unavailabl e Encounter Details Date Type Department Care Team (Late st Contact Info) Description 03/29/2019 Transcribed Document [facility] [place] [address] ProviderGregoria MD [address] [place] [address] [phone] Social History Tobacco Use Types Packs/Day Years Used Date Smoking Tobacco: Never Assessed Comments Unknown Sex and Gender Information Value Date Recorded Sex Assigned at Not on file Legal Sex Female 6:39 PM CDT Gender Identity Not on file Sexual Orientation Not on file documented as of this encounter Miscellaneous Notes * Cerner Conversion Note - Gregoria Griffiths MD - 03/29/2019 3:30 PM CDT DATE OF ADMISSION: 03/30/2019 PROCEDURE PLANNED: 03/30/2019 PREOPERATIVE DIAGNOSES: 1. Mullerian defect. 2. Large uterine septum. 3. History of labor. 4. Hypertension. 5. Gastroesophageal reflux disease. PROCEDURES PLANNED: 1. Diagnostic laparoscopy with laparoscopic backup for diagnostic hysteroscopy with resection of uterine septum. 2. Diagnostic hysteroscopy with resection of uterine septum. IDENTIFICATION: Patient is a 24-year-old single female, G2, P1, living child one, who was obviously concerned and wanting more children, who had a difficult first with recurrent labor abnormal per presentation. Ultrasound workup including 3D ultrasounds at the time of reveals a significant uterine septum. We have elected to resect this uterine septum with the above-mentioned procedure. We will have a laparoscopic backup as well as we will resect endometrial disease if there is endometriosis, lyse adhesions and we will look at her appendix very closely. PAST MEDICAL HISTORY: Operations, only. ALLERGIES: She has no known drug allergies. MEDICATIONS: Include: 1. Calciferol crystals. 2. Lisinopril . 3. Pantoprazole 40 mg. PHYSICAL EXAMINATION: We see a well-developed, slightly obese, female. Her weight is 228, BMI is 37, blood pressure is 134/82. test is negative on March 29, 2019. We see an alert and oriented x3 female. Neck is supple. Thyroid palpates normal. No nuchal adenopathy. Chest is clear to auscultation. Cardiovascular exam, normal sinus without murmurs or gallops. Breast check deferred at this time. Abdomen soft. shows normal vulva and bimanual exam is difficult because of patient's size, but ultrasound with 3D imaging reveals the classic septate uterus with the above-mentioned findings. ASSESSMENT: As above. PLAN: As above. José Miguel Beach M.D. Dict: 03/29/2019 15:30:56 Trans: 03/29/2019 23:27:50 CC1: José Miguel Beach M.D. documented in this encounter Plan of Treatment Not on file documented as of this encounter Visit Diagnoses Not on filedocumented in this encounter
--- OUTSIDE RECORDS SUMMARY | 2025-01-07 17:35 | XMS_ITS | Encounter Summary ---
Author Organization [facility] Address [address] [place] [address] Care Team Providers Care Health Care Manager Name Role Phone Unavailable Primary Care Provider Unavailabl e Encounter Details Date Type Department Care Team (Late st Contact Info) Description 03/30/2019 Transcribed Document [facility] Family Medicine [facility] [place] [address] ProviderGregoria MD [address] [place] [address] [id number] Social History Tobacco Use Types Packs/Day Years Used Date Smoking Tobacco: Never Assessed Comments Unknown Sex and Gender Information Value Date Recorded Sex Assigned at Not on file Legal Sex Female 6:39 PM CDT Gender Identity Not on file Sexual Orientation Not on file documented as of this encounter Miscellaneous Notes * Cerner Conversion Note - Gregoria Griffiths MD - 03/30/2019 10:35 AM CDT [place] [id number] CHARO SAPP :1995 Visit Time:03/30/2019 What to do next Your Diagnosis Abdominal adhesions Hypertension Other doubling of uterus, unspecified, Other doubling of uterus, unspecified Uterine anomaly Instructions From Your Care Team Lortab 7.5 mg take 1 tablet every 6-8 hours as needed for pain Nothing vaginally until follow up appt Remove dressing in 48 hours, then shower. No tub baths Discharge Activity: Discharge Activity: No strenuous activities Diet: Discharge Diet: Heart healthy diet Follow-Up Appointments Follow Up with WES THOMPSON When 04/10/2019 02:15 PM EDT Where: [address] [place] [address]- Business (1) Medications What How Much When Instructions Next Dose cholecalciferol (Vitamin D3 1000 intl units oral capsule) 1 Capsule(s) Oral Every Day lisinopril (lisinopril 10 mg oral tablet) 1 Tablet(s) Oral Every Day pantoprazole (pantoprazole 40 mg oral delayed release tablet) 1 Tablet(s) Oral Every Day Take your medications faithfully. Do NOT skip medication. Do NOT stop taking medications without the direction of a physician. Carry a list of your medications with you at all times, and take this medication list with you to your first follow up visit. Report any side effects. Avoid herbal remedies unless discussed with your physician. As part of your treatment plan, your physician may have prescribed a limited course of a controlled substance. This medication may be given to help people with moderate or severe pain or for other medical conditions, but there are risks involved with treatment. Common side effects may include nausea, constipation, drowsiness, sweating, itching, dry mouth, and rash. More serious side effects may include cognitive and motor impairment, like problems with thinking, concentrating, alertness, and movement (e.g. slowed reflexes), and driving and operating heavy machinery can be dangerous. It is important for you to talk to your physician if you have these side effects or questions. These controlled substances can produce physical dependence and be habit-forming if taken for an extended period of time, which means that the body has gotten used to them and may experience withdrawal symptoms if they are abruptly stopped. Withdrawal symptoms can include runny nose, sweating, goose bumps, diarrhea, abdominal cramping, rapid heartbeat, difficulty sleeping, and nervousness. Please dispose of unused and medications per pharmacy guidance. Education Materials Diagnostic Laparoscopy, Care After This sheet gives [...] these instructions at home: Medicines ??? Take cqww-xuc-foyfjzh and prescription medicines only as told by [...] and water are not available, use hand tank carpenter. ? Change your dressing as told by [...] keep your urine pale yellow. ? Take cntc-wft-vfgjbby or prescription medicines. ? Eat foods that [...] 06/22/2016 Document Revised: 01/05/2018 Document Reviewed: 01/05/2018 [facility] Interactive Patient Education ?? 2019 [facility] General Anesthesia, Adult, Care After This [...] activities are safe for you. ??? Take wlem-pao-bdcosnt and prescription medicines only as told by [...] 10/18/2001 Document Revised: 02/25/2018 Document Reviewed: 02/25/2018 [facility] Interactive Patient Education ?? 2019 [employer]. acetaminophen and hydrocodone (a SEET a MIN oh fen and dayanara droe KOE done) Hycet, Lorcet, Argyle, Verdrocet, Vicodin, Xodol, Zamicet What is the most important information I should know about acetaminophen and hydrocodone? MISUSE OF OPIOID MEDICINE CAN CAUSE ADDICTION, OVERDOSE, OR . Keep the medication in a place where others cannot get to it. An overdose of acetaminophen can damage your liver or cause . Call your doctor at once if you have pain in your upper stomach, loss of appetite, dark urine, or jaundice (yellowing of your skin or eyes). Taking opioid medicine during may cause life-threatening withdrawal symptoms in the . Fatal side effects can occur if you use opioid medicine with alcohol, or with other drugs that cause drowsiness or slow your breathing. Stop taking this medicine and call your doctor right away if you have skin redness or a rash that spreads and causes blistering and peeling. What is acetaminophen and hydrocodone? Hydrocodone is an opioid pain medication, sometimes called a narcotic. Acetaminophen is a less potent pain reliever that increases the effects of hydrocodone. Acetaminophen and hydrocodone is a combination medicine used to relieve moderate to severe pain. Acetaminophen and hydrocodone may also be used for purposes not listed in this medication guide. What should I discuss with my healthcare provider before taking acetaminophen and hydrocodone? You should not use this medicine if you are allergic to acetaminophen or hydrocodone, or if you have: ?? severe asthma or breathing problems; or ?? a blockage in your stomach or intestines. Tell your doctor if you have ever had: ?? liver disease; ?? a drug or alcohol addiction; ?? kidney disease; ?? a head injury or seizures; ?? urination problems; or ?? problems with your thyroid, pancreas, or gallbladder. If you use opioid medicine while you are , your baby could become dependent on the drug. This can cause life-threatening withdrawal symptoms in the baby after it is born. Babies born dependent on opioids may need medical treatment for several weeks. Do not breast-feed. This medicine can pass into breast milk and cause drowsiness, breathing problems, or in a nursing baby. How should I take acetaminophen and hydrocodone? Follow all directions on your prescription label. Never take this medicine in larger amounts, or for longer than prescribed. An overdose can damage your liver or cause . Tell your doctor if the medicine seems to stop working as well in relieving your pain. Always check your bottle to make sure you have received the correct pills (same brand and type) of medicine prescribed by your doctor. Never share this medicine with another person, especially someone with a history of drug abuse or addiction. MISUSE CAN CAUSE ADDICTION, OVERDOSE, OR . Keep the medicine in a place where others cannot get to it. Selling or giving away acetaminophen and hydrocodone is against the law. Measure liquid medicine carefully. Use the dosing syringe provided, or use a medicine dose-measuring device (not a kitchen spoon). If you need surgery or medical tests, tell the doctor ahead of time that you are using this medicine. You should not stop using this medicine suddenly. Follow your doctor's instructions about tapering your dose. Store at room temperature away from moisture and heat. Keep track of your medicine. You should be aware if anyone is using it improperly or without a prescription. Do not keep leftover opioid medication. Just one dose can cause in someone using this medicine accidentally or improperly. Ask your pharmacist where to locate a drug take-back disposal program. If there is no take-back program, flush the unused medicine down the toilet. What happens if I miss a dose? Since this medicine is used for pain, you are not likely to miss a dose. Skip any missed dose if it is almost time for your next dose. Do not use two doses at one time. What happens if I overdose? Seek emergency medical attention or call the Poison Help line at . An overdose of acetaminophen and hydrocodone can be fatal. The first signs of an acetaminophen overdose include loss of appetite, nausea, vomiting, stomach pain, sweating, and confusion or weakness. Later symptoms may include pain in your upper stomach, dark urine, and yellowing of your skin or the whites of your eyes. Overdose can also cause severe muscle weakness, pinpoint pupils, very slow breathing, extreme drowsiness, or coma. What should I avoid while taking acetaminophen and hydrocodone? Avoid driving or operating machinery until you know how this medicine will affect you. Dizziness or drowsiness can cause falls, accidents, or severe injuries. Do not drink alcohol. Dangerous side effects or could occur. Ask a doctor or pharmacist before using any other medicine that may contain acetaminophen (sometimes abbreviated as APAP). Taking certain medications together can lead to a fatal overdose. What are the possible side effects of acetaminophen and hydrocodone? Get emergency medical help if you have signs of an allergic reaction: hives; difficulty breathing; swelling of your face, lips, tongue, or throat. Opioid medicine can slow or stop your breathing, and may occur. A person caring for you should seek emergency medical attention if you have slow breathing with long pauses, blue colored lips, or if you are hard to wake up. In rare cases, acetaminophen may cause a severe skin reaction that can be fatal. This could occur even if you have taken acetaminophen in the past and had no reaction. Stop taking this medicine and call your doctor right away if you have skin redness or a rash that spreads and causes blistering and peeling. Call your doctor at once if you have: ?? noisy breathing, sighing, shallow breathing; ?? a light-headed feeling, like you might pass out; ?? liver problems--nausea, upper stomach pain, tiredness, loss of appetite, dark urine, daina-colored stools, jaundice (yellowing of the skin or eyes); or ?? low cortisol levels-- nausea, vomiting, loss of appetite, dizziness, worsening tiredness or weakness. Seek medical attention right away if you have symptoms of serotonin syndrome, such as: agitation, hallucinations, fever, sweating, shivering, fast heart rate, muscle stiffness, twitching, loss of coordination, nausea, vomiting, or diarrhea. Serious side effects may be more likely in older adults and those who are overweight, malnourished, or debilitated. Long-term use of opioid medication may affect fertility (ability to have children) in men or women. It is not known whether opioid effects on fertility are permanent. Common side effects include: ?? dizziness, drowsiness, feeling tired; ?? nausea, vomiting, stomach pain; ?? constipation; or ?? headache. This is not a complete list of side effects and others may occur. Call your doctor for medical advice about side effects. You may report side effects to FDA at 6-693-KOO-7600. What other drugs will affect acetaminophen and hydrocodone? You may have breathing problems or withdrawal symptoms if you start or stop taking certain other medicines. Tell your doctor if you also use an antibiotic, antifungal medication, heart or blood pressure medication, seizure medication, or medicine to treat HIV or hepatitis C. Opioid medication can interact with many other drugs and cause dangerous side effects or . Be sure your doctor knows if you also use: ?? cold or allergy medicines, bronchodilator asthma/COPD medication, or a diuretic ('water pill'); ?? medicines for motion sickness, irritable bowel syndrome, or overactive bladder; ?? other narcotic medications--opioid pain medicine or prescription cough medicine; ?? a sedative like Valium--diazepam, alprazolam, lorazepam, Xanax, Klonopin, Versed, and others; ?? drugs that make you sleepy or slow your breathing--a sleeping pill, muscle relaxer, medicine to treat mood disorders or mental illness; ?? drugs that affect serotonin levels in your body--a stimulant, or medicine for depression, Parkinson's disease, migraine headaches, serious infections, or nausea and vomiting. This list is not complete. Other drugs may affect acetaminophen and hydrocodone, including prescription and uoxw-uct-zztfqvj medicines, vitamins, and herbal products. Not all possible interactions are listed here. Where can I get more information? Your doctor or pharmacist can provide more information about acetaminophen and hydrocodone. Remember, keep this and all other medicines out of the reach of children, never share your medicines with others, and use this medication only for the indication prescribed. Every effort has been made to ensure that the information provided by [employer]. ('[employer]') is accurate, up-to-date, and complete, but no guarantee is made to that effect. Drug information contained herein may be time sensitive. [employer] information has been compiled for use by healthcare practitioners and consumers in the [place] and therefore [employer] does not warrant that uses outside of the [place] are appropriate, unless specifically indicated otherwise. [employer]'s drug information does not endorse drugs, diagnose patients or recommend therapy. [employer] drug information is an informational resource designed to assist licensed healthcare practitioners in caring for their patients and/or to serve consumers viewing this service as a supplement to, and not a substitute for, the expertise, skill, knowledge and judgment of healthcare practitioners. The absence of a warning for a given drug or drug combination in no way should be construed to indicate that the drug or drug combination is safe, effective or appropriate for any given patient. [employer] does not assume any responsibility for any aspect of healthcare administered with the aid of information [employer] provides. The information contained herein is not intended to cover all possible uses, directions, precautions, warnings, drug interactions, allergic reactions, or adverse effects. If you have questions about the drugs you are taking, check with your doctor, nurse or pharmacist. Copyright 9833-9836 [employer]. Version: 15.02. Revision Date: 05/30/2018. Emergency Awareness and Preventative Care STROKE is an EMERGENCY Every Minute Counts Act FAST and Check for these signs: FACE Does the face look uneven? ARM Does one arm drift down? SPEECH Does their speech sound strange? TIME Call at any sign of stroke Stroke Risk Factors Atrial Fibrillation (irregular heartbeat) Diabetes Family history of stroke Heart Disease Heavy alcohol use High Blood Pressure High Cholesterol Physical inactivity and obesity Smoking Cigarette Smoking The facts are clear, cigarette smoking will shorten your life. Smoking can cause many illnesses along the way. As a healthcare provider, we recommend that you stop smoking. Assistance with quitting is available by contacting 8-883-HCGF-NOW. This is a free resource providing counseling, support, and referral. Or you may contact your personal physician. National Suicide Prevention Lifeline: The National Suicide Prevention Lifeline is a national network of local crisis centers that provides free and confidential emotional support to people in suicidal crisis or emotional distress 24 hours a day, 7 days a week. Don't Wait! Stop a Heart Attack Before it Starts What is a heart attack? A heart attack is damage or to a part of the heart from severely decreased or lack of blood flow to the heart. Over time, arteries can become narrow from the buildup of fat and cholesterol, which is called plaque. The plaque can rupture causing a blood clot to form. When the blood clot forms, the artery can become severely narrowed or completely blocked, causing a heart attack. Heart attack is the leading cause of in the [place]. 85% of muscle damage occurs within the first 2 hours. Delay in the recognition of heart attack symptoms increases the chances of . Know the early symptoms of a heart attack: Nausea Feeling of fullness in chest Jaw Pain Pain that travels down one or both arms Fatigue/being tired Anxiety Back Pain Chest pressure, squeezing, or discomfort Shortness of breath Sweating, or a cold sweat Feeling of impending doom There are unusual signs of a heart attack, too! Women, the elderly, and diabetics may present with atypical symptoms: Fainting/dizziness Weakness Confusion Risk Factors for a Heart Attack Some heart disease risk factors, such as age and family history, cannot be changed. Others, like smoking and lack of exercise, can be changed. Smoking High Cholesterol High Blood Pressure Family History Obesity Age Gender (Males are at higher risk) Lack of Exercise Diabetes Diet Stress Excessive Alcohol Intake If you or someone you know is experiencing the signs and symptoms of a heart attack, DON???T DELAY. Call immediately and seek help. If someone collapses, perform CPR! Do not attempt to drive if you are having symptoms of heart attack. Hands-Only CPR Why Hands-Only CPR? Hands-Only CPR has been shown to be as effective as conventional CPR for cardiac arrests that occur outside of a hospital. Survival depends on immediately receiving CPR from someone nearby. How do you perform Hands-Only CPR? There are two easy steps: Call if you see a teen or adult collapse Push hard and fast in the center of the chest at a beat of 100 beats per minute. Save a life! 4 WAYS TO GET AHEAD OF SEPSIS SEPSIS is a MEDICAL EMERGENCY. Time matters! Infections put you and your family at risk for a life-threatening condition called sepsis. Sepsis is the body's extreme response to an infection. It is life-threatening, and without timely treatment, sepsis can rapidly lead to tissue damage, organ failure, and . Sepsis happens when an infection you already have-in your skin, lungs, urinary tract or somewhere else-triggers a chain reaction throughout your body. 1 PREVENT INFECTIONS Take good care of chronic conditions. Talk to your doctor about getting the recommended vaccines. 2 PRACTICE GOOD HYGIENE Wash your hands frequently. Keep cuts or open sores clean and covered until they are healed. 3 KNOW THE SYMPTOMS Confusion or disorientation Shortness of breath High heart rate Fever, shivering, or feeling very cold Extreme pain or discomfort Clammy or sweaty skin 4 ACT FAST Get medical care IMMEDIATELY if you suspect sepsis or if you have an infection that is not getting better or is getting worse. To learn more about sepsis and how to prevent infections, visit www.cdc.gov/sepsis. Test Results Laboratory or Other Results This Visit (last charted value for your 03/30/2019 visit) Hematology 03/29/19 15:01:00 WBC: 5.8 K/uL -- Normal range between ( 3.9 and 10.0 ) RBC: 4.15 Million/uL -- Normal range between ( 3.93 and 5.22 ) Hct: 35.2 % -- Normal range between ( 34.1 and 44.9 ) Hgb: 11.1 Gram/dL -- Normal range between ( 11.2 and 15.7 ) Platelet Count: 237 K/uL -- Normal range between ( 163 and 369 ) MCH: 26.7 pg -- Normal range between ( 25.6 and 32.2 ) MCHC: 31.5 Gram/dL -- Normal range between ( 32.3 and 36.5 ) MCV: 84.8 fL -- Normal range between ( 79.0 and 94.8 ) Slide Review: No RDW: 13.2 % -- Normal range between ( 11.6 and 14.4 ) MPV: 9.6 fL -- Normal range between ( 9.4 and 12.4 ) General Chemistry 03/29/19 15:01:00 Creatinine Level: 0.59 mg/dL -- Normal range between ( 0.55 and 1.02 ) Sodium Level: 140 mmol/L -- Normal range between ( 136 and 146 ) Potassium Level: 4.1 mmol/L -- Normal range between ( 3.5 and 5.1 ) Chloride Level: 105 mmol/L -- Normal range between ( 102 and 112 ) Carbon Dioxide Level: 29 mmol/L -- Normal range between ( 21 and 32 ) Anion Gap: 10 -- Normal range between ( 9 and 20 ) Bun/Creatinine: 22.0 -- Normal range between ( 8.0 and 20.0 ) Calcium Level: 8.6 mg/dL -- Normal range between ( 8.5 and 10.1 ) eGFR : >60 mL/min/1.73m2 eGFR NonAfrican: >60 mL/min/1.73m2 Glucose Level: 75 mg/dL -- Normal range between ( 74 and 106 ) Blood Urea Nitrogen: 13 mg/dL -- Normal range between ( 7 and 22 ) Endocrinology 03/30/19 07:05:00 HCG Urine Qualitative: Negative Patient Name:CHARO SAPP I have received this information and was given the opportunity to ask questions. Patient/Liver Trimmer Name: Patient/Liver Trimmer Signature: Relationship to Patient: Clinician/Hospital Liver Trimmer Signature: Date: Electronically signed by Alla, Rochelle Conversion Field Artillery Cannoneer Nikitaner at 11/13/2022 11:13 AM CDT documented in this encounter Plan of Treatment Not on file documented as of this encounter Visit Diagnoses Not on filedocumented in this encounter
--- OUTSIDE RECORDS SUMMARY | 2025-01-07 17:35 | XMS_ITS | Encounter Summary ---
Author Organization [facility] Address [address] [place] [address] Care Team Providers Care Gas Appliance Mechanic Name Role Phone Unavailable Primary Care Provider Unavailabl e Source Comments This information has been disclosed to you from confidential records protectfrom disclosure by state law. You shall make no further disclosure of thisinformation without the specific, written, and informed release of theindividual to whom it pertains, or as otherwise permitted by law. A generalauthorization for the release of medical or other information is not sufficientfor the purposes of the release of HIV test results or diagnoses. [id number] Health Encounter Details Date Type Department Care Team ([facility] Contact Info) Description 11/30/2024 Chart Note [facility] Reproductive Endocrinology and Infertility at [facility] [address] [facility] [address] [place] [address] Jl Matta MD [address] [place] [address] LM WITH PATIENT TO CALL FOR AN APPOINTMENT. Social History Tobacco Use Types Packs/Day Years Used Date Smoking Tobacco: Never Assessed Comments Unknown Sex and Gender Information Value Date Recorded Sex Assigned at Not on file Legal Sex Female 1:31 PM EDT Gender Identity Not on file Sexual Orientation Not on file documented as of this encounter Progress Notes * Therese Sanchez - 11/30/2024 1:42 PM EDT LM WITH PATIENT TO CALL FOR AN APPOINTMENT. documented in this encounter Plan of Treatment Not on file documented as of this encounter Visit Diagnoses Not on filedocumented in this encounter
--- NOTE | 2025-01-07 17:57 | ED_ITS ---
Discharge Plan Disposition Patient Disposition: Home, Self-Care Prescriptions Prescriptions: New hydrocodone-acetaminophen 5-325 mg tablet 1 tab PO Q6H PRN (Reason: pain) Qty: 10 0RF ondansetron 4 mg tablet,disintegrating 4 mg PO Q6H PRN (Reason: nausea and vomiting) Qty: 10 0RF No Action sumatriptan succinate 50 mg tablet See Rx Instructions PO .COMPLEX Qty: 14 0RF Rx Instructions: take 1 tab at onset of headache; if no relief may repeat 1 tab after at least 2 hrs; max = 4 tabs/24 hr PO famotidine [Acid Lead Ramp Service Man (famotidine)] 20 mg tablet 20 mg PO DAILY Qty: 90 2RF ferrous sulfate 325 mg (65 mg iron) tablet,delayed release (DR/EC) 325 mg PO DAILY Qty: 90 2RF levothyroxine 25 mcg tablet 25 mcg PO DAILY Qty: 90 2RF pantoprazole 40 mg tablet,delayed release (DR/EC) 40 mg PO DAILY Qty: 90 2RF Rx Instructions: TAKE 1 TABLET BY MOUTH DAILY FOR GERD propranolol 10 mg tablet 10 mg PO BID Qty: 60 2RF Referrals Follow up/Referrals: Chidi Etienne DO [Staff Physician, Orthopedics] - See instructions Activity Restrictions/Add. Instructions Additional Instructions/Restrictions: Call your family doctor to establish care for this visit to the emergency department and schedule follow-up within 48 hours to ensure improvement. If you have any worsening of your condition or any other concerning signs or symptoms, return to the emergency department or your primary care doctor for further evaluation. Remain nonweightbearing on your right lower extremity at all times. Call Dr. Etienne to be seen in clinic in order to have surgery scheduled. Take Tylenol 1000 mg every 6 hours (4 times daily) and ibuprofen 400 mg every 6 hours (4 times daily) as needed with food and water to prevent GI upset and kidney damage. Zofran prior to pain medications to prevent nausea and vomiting Clinical Impressions Clinical Impression: Closed trimalleolar fracture Print Language Print Language: Brazilian Discharge ED Provider: Carlos Cordova General Adult HPI General Chief complaint: Extremity Injury, Lower Stated complaint: Ankle pain Time Seen by Provider: 01/07/25 17:33 Mode of Arrival: EMS Source of Information: Patient Description of Symptoms (Recalled from ER Triage Doc. by RN): Patient states she slipped on the green while playing mini golf and injured her right ankle. Patient has been unable to bear any weight on ankle. History of Present Illness HPI narrative: Please note that above description of symptoms, in this electronic medical record under categorization of recalled from ER triage doctor by RN are reflec tive of an initial nursing assessment, however, is not reflective of my full history and physical exam that was personally taken and clarified. Consequentially, this preceding description of symptoms, which may include the patient's categorized chief complaint in the EMR, do not reflect my personal clinical impression, and the ultimate description of history of present illness and patient stated complaints should be deferred to this section of the note. Unless stated otherwise or congruent with this section of the note, additional signs, symptoms, or incongruence should be interpreted as inaccurate with my clinical impression. Related Data Previous Rx's ?Medication ?Instructions ?Recorded famotidine 20 mg tablet (Acid 20 mg PO DAILY #90 tabs 08/28/24 Lead Ramp Service Man (famotidine)) ferrous sulfate 325 mg (65 mg 325 mg PO DAILY #90 tabs 08/28/24 iron) tablet,delayed release levothyroxine 25 mcg tablet 25 mcg PO DAILY #90 tabs 0 08/28/24 pantoprazole 40 mg tablet,delayed 40 mg PO DAILY GERD #90 tabs 08/28/24 release sumatriptan succinate 50 mg tablet See Rx Instructions PO .COMPLEX 08/28/24 #14 tabs propranolol 10 mg tablet 10 mg PO BID #60 tabs hydrocodone 5 mg-acetaminophen 325 1 tab PO Q6H PRN pa in #10 tabs 01/07/25 mg tablet ondansetron 4 mg disintegrating 4 mg PO Q6H PRN nausea and 01/07/25 tablet vomiting #10 tabs Allergies Allergy/AdvReac Type Severity Reaction Status Date / Time No Known Allergies Allergy Verified 01/07/25 17:[address] [facility] Disclaimer: The information contained in this section may have been updated after the patient was seen, as this information can be updated by other users. Medical History Epigastric abdominal pain Burning chest pain Tonsillitis, chronic ONOFRE (stress urinary incontinence, female) Urine frequency Constipation Chronic GERD Heartburn Bloody stool GERD (gastroesophageal reflux disease) PCOS (polycystic ovarian syndrome) Depression Hypertension Bicornate uterus Surgical History Hx of breast biopsy History of laparoscopy uterine wall delivery delivered Family History Other Diabetes Hypertension Social History Smoking Status: Never smoker alcohol intake: current alcohol intake frequency: holidays/special occasions only substance use type: denies use current occupational status: employed Travel in the last 8 weeks?: None caffeine: No Have you lived/traveled outside US in past 30 days?: No Contact w/someone who lives/traveled outside US past 30 days?: No Exposure to someone with infectious disease in past 14 days?: No Do you have a fever (greater than 100.4 F or 38 C)?: No Have you tested positive for COVID-19?: No Exposed to someone with COVID-19 in past 14 days?: No Do you have a sore throat?: No Do you have a cough?: No Do you have any weakness?: No Do you have any diarrhea?: No Are you experiencing any unusual bleeding?: No Do you have any muscle aches/pain?: No Do you have any abdominal pain?: No Are you experiencing loss of taste or smell?: No Other Medical History Have you received the Flu Vaccine for this season: No Have you received the Pneumonia Vaccine: No ROS Obtained: Yes All systems reviewed & no additional complaints except as documented Physical Exam General General appearance: alert, in distress (Secondary to pain) and obese Head Head exam: atraumatic and normocephalic Eye Eye exam: Present normal appearance, PERRL and EOMI Neck Neck exam: Present normal inspection, full ROM and trachea midline Respiratory Respiratory exam: Absent respiratory distress, wheezes, stridor, accessory muscle use or prolonged expiratory phase Cardiovascular Cardiovascular exam: Present other (Pulses equal symmetric in upper and lower extremities) Abdominal Exam Abdominal exam: Present soft; Absent distention, tenderness or pulsatile mass Extremities Exam Extremities exam: Present edema and other (Obvious deformity and significant amount of swelling right ankle. Tenderness about both malleoli. Crepitus with any amount of movement. Neurovascularly intact distally including motor and sensation of digits. DP grossly palpable) Neurological Exam Neurological exam: Present alert, oriented X3 and CN II-XII intact; Absent motor sensory deficit Skin Skin exam: Present warm and dry; Absent diaphoresis or erythema Medical Decision Making Medical Records Medical records reviewed: Yes I reviewed the patient's medical records. Screening: Per USPSTF and CDC recommendations, given the prevalence of disease in our region, it is our hospital?s policy to screen for HIV and viral Hepatitis for all patients aged 18 and over and those with ongoing risk factors. Sujit Inquiry Pt receiving controlled substance: No Sujit was queried for this patient: No Vital Signs: 01/07/25 17:34 01/07/25 17:36 01/07/25 18:30 Temperature 98.7 F Temperature Source Oral Pulse Rate 97 H 89 Pulse Rate [Right Radial] 98 H Respiratory Rate 18 Blood Pressure 177/99 H 130/70 Blood Pressure [Right Arm] 177/99 H Blood Pressure Mean [Right Arm] 125 Blood Pressure Source [Right Arm] Automatic Cuff Blood Pressure Position [Right Arm] Sitting 02 Sat by Pulse Oximetry 99 98 99 Oxygen Delivery Method Room Air Room Air Orders (Tests/Meds): ED MEDICATIONS Generic Name Dose Route Start Last Admin Trade Name Freq PRN Reason Stop Dose Admin Ondansetron HCl 4 mg 01/07/25 19:48 Ondansetron 4mg/2ml Vial IV 01/07/25 19:49 ONCE ONE Discontinued Medications Generic Name Dose Route Start Last Admin Trade Name Freq PRN Reason Stop Dose Admin Hydromorphone HCl 0.5 mg 01/07/25 17:35 01/07/25 18:05 Hydromorphone 2mg/Ml Syringe IV 01/07/25 17:36 0.5 mg ONCE ONE Administration Ketamine HCl 100 mg 01/07/25 18:46 01/07/25 19:26 Ketamine 50mg/1ml Syringe IV 01/07/25 18:47 50 mg ONCE ONE Administration Ketorolac Tromethamine 15 mg 01/07/25 17:35 01/07/25 18:05 Ketorolac 30mg/Ml Vial IV 01/07/25 17:36 15 mg ONCE ONE Administration Ondansetron HCl 4 mg 01/07/25 17:35 01/07/25 18:05 Ondansetron 4mg/2ml Vial IV 01/07/25 17:36 4 mg ONCE ONE Administration ORDERS Category Date Time Status Ankle XR -Right minimum 3 Views [XR ankle RT min 3V] Exams 01/07/25 17:35 Taken Stat Fibula/tibia XR right 2 views [XR tibia fibula RT 2V] Exams 01/07/25 17:35 Taken Stat Medical Decision Narrative: 29-year-old female presenting with right ankle injury. She states that she was many golfing prior to this, slipped on the green, felt and heard an audible pop. Unable to bear weight, significant pain, came in for further evaluation with EMS. Patient's pain is 10 out of 10, did not receive anything with EMS for pain. No chance of , patient has no allergies. History obtained with patient and EMS. On arrival, very clinically well, but in obvious pain and distress. Deformity right ankle, neurovascularly intact foot. Sensation and motor intact of digits, DP intact. Tenderness about bilateral malleoli as well as posterior malleolus. Palpable crepitus with any motion. Differential includes fracture, fracture dislocation, among others Patient placed on continuous cardiac monitoring and continuous pulse ox with initial blood pressure 177/99, heart rate 98, saturation 98% on room air. Patient was given Zofran, Toradol, Dilaudid for symptomatic management and correction of underlying abnormalities. Workup independently interpreted and significant for trimalleolar fracture with slight posterior displacement of the tibiotalar joint. Comminuted. No evidence of proximal tibial or fibular fractures. On independent interpretation of imaging, trimalleolar fracture. Minimally displaced, comminuted. See radiology read for full review of final results. Patient sedated with ketamine and splinted with posterior long-leg splint with stirrup, molded in place. On reevaluation, patient woke up, able to tolerate p.o. intake, but feeling nauseated. Given Zofran. Fluids ran in. Tissue perfusion reassessment performed within 3 hours, patient mentating, following commands, good capillary refill and hemodynamically stable. Dr. Etienne was consulted and case was discussed, recommended splint in place, outpatient follow-up in clinic. Given patient presentation, workup, history, this most likely represents trimalleolar fracture after fall from standing. Because patient at baseline without signs or symptoms of clinical decompensation, deemed appropriate for discharge. Results were relayed to patient who voiced understanding and were agreeable to outpatient management and follow up. I discussed my clinical impression with patient and answered all questions. At this time, the evidence for any other entities in the differential is insufficient to warrant any further testing or ED observation. This was explained as well. Advisory was given that persistent or worsening symptoms require further evaluation. I confirmed the understanding of this discussion. Concrete Puddler disclaimer Much of this encounter note is an electronic anthropology and archeology instructor spoken language to printed text. Electronic anthropology and archeology instructor of the spoken language may permit errors. Although I have reviewed the note, some errors may still exist. Procedures Orthopedic Splinting/Casting Injury #1: Side: right Lower Extremity Injury Location: ankle Lower Extremity Immobilizer: posterior splint Post Cast/Splinting Neuro Status: intact and no change Post Cast/Splinting Vasc Status: intact and no change Procedural Sedation A heart and lung assessment was performed on this patient at: 18:30 Mallampati Score:: Class I Indication: fracture/dislocation reduction ASA Class: II Preparation: threat monitoring analyst applied, pulse oximeter, capnometry used, supplemental O2 applied and suction/airway equipment at bedside Ketamine: IV Ketamine dose (mg): 50 Patient Tolerated Procedure: well Complications: none Critical Care Critical Care Time Critical Care Time: No
[2025-01-07] MEDS: ONDANSETRON 4MG/2ML VIAL 4 MG IV ×2 (18:05→19:48)
[2025-01-07] MEDS: KETOROLAC 30MG/ML VIAL 15 MG IV (18:05)
[2025-01-07] MEDS: HYDROMORPHONE 2MG/ML SYRINGE 0.5 MG IV (18:05)
[2025-01-07] MEDS: KETAMINE 50MG/1ML SYRINGE 100 MG IV (19:26)
== END 2025-01-07 20:58 | disposition home or self-care (01) ==
PROVIDERS: Emergency Provider Emergency Medicine; PCP Family Medicine
DX: S82.851A Displaced trimalleolar fracture of right lower leg, initial encounter for closed fracture (principal); W18.41XA Slipping, tripping and stumbling without falling due to stepping on object, initial encounter
CPT/HCPCS: 73590; 73610; 96374; 96375; 96376; 99285; J1171; J1885; J2405

== ENCOUNTER 2025-02-05 10:35 | Emergency (ER) | payer BC, SELFPAY ==
[2025-02-05] VITALS (7 sets, daily range): BP systolic 143–177; BP diastolic 97–113; PULSE 66–87; RESP 16–18; TEMP 36.8; O2SAT 96–97; BMI 43.2
--- NOTE | 2025-02-05 11:23 | ED_ITS ---
Discharge Plan Disposition Patient Disposition: Home, Self-Care Condition: Good Prescriptions Prescriptions: No Action sumatriptan succinate 50 mg tablet See Rx Instructions PO .COMPLEX Qty: 14 0RF Rx Instructions: take 1 tab at onset of headache; if no relief may repeat 1 tab after at least 2 hrs; max = 4 tabs/24 hr PO famotidine [Acid Software Developer Consultant (famotidine)] 20 mg tablet 20 mg PO DAILY Qty: 90 2RF ferrous sulfate 325 mg (65 mg iron) tablet,delayed release (DR/EC) 325 mg PO DAILY Qty: 90 2RF levothyroxine 25 mcg tablet 25 mcg PO DAILY Qty: 90 2RF pantoprazole 40 mg tablet,delayed release (DR/EC) 40 mg PO DAILY Qty: 90 2RF Rx Instructions: TAKE 1 TABLET BY MOUTH DAILY FOR GERD propranolol 10 mg tablet 10 mg PO BID Qty: 60 2RF hydrocodone-acetaminophen 5-325 mg tablet 1 tab PO Q6H PRN (Reason: pain) Qty: 10 0RF ondansetron 4 mg tablet,disintegrating 4 mg PO Q6H PRN (Reason: nausea and vomiting) Qty: 10 0RF Referrals Follow up/Referrals: Clare Laura APRN [Primary Care Provider, Family Practice] - See instructions Activity Restrictions/Add. Instructions Additional Instructions/Restrictions: Continue wearing your boot per orthopedic recommendations. Follow-up in clinic as scheduled, return to the emergency department for any acute or worsening symptoms. Clinical Impressions Clinical Impression: Sprain of ankle, right Instructions Patient Instructions: Ankle Sprain Print Language Print Language: Vietnamese Discharge ED Provider: Keerthi Torres Adult HPI General Chief complaint: Extremity Injury, Lower Stated complaint: AO-Pain R ankle-surgery done 01/11 Time Seen by Provider: 02/05/25 10:55 Mode of Arrival: Wheelchair Source of Information: Patient Description of Symptoms (Recalled from ER Triage Doc. by RN): Pt reports right leg pain following a near fall and putting weight on her non weight bearing leg. Pt reports 6/10 sharp pain since putting weight on her right leg. Pt denies LOC. History of Present Illness HPI narrative: Patient is an otherwise healthy 29-year-old female who presented to the emergency department with right lower extremity pain. Patient states that she previously had surgery on her right lower extremity for a tri-malleolar fracture. Patient has hardware in place. Patient has been in a boot and has been nonweightbearing. Patient states today she had a fall and put weight on her lower extremity. Patient was concerned because she is not supposed to be bearing weight. Patient reports some pain near the ankle denies any other symptoms. Patient has sensation denies any numbness or weakness. Patient does not take any daily medications, no other prior recent surgeries. Related Data Previous Rx's ?Medication ?Instructions ?Recorded famotidine 20 mg tablet (Acid 20 mg PO DAILY #90 tabs 08/28/24 Software Developer Consultant (famotidine)) ferrous sulfate 325 mg (65 mg 325 mg PO DAILY #90 tabs 08/28/24 iron) tablet,delayed release levothyroxine 25 mcg tablet 25 mcg PO DAILY #90 tabs 0 08/28/24 pantoprazole 40 mg tablet,delayed 40 mg PO DAILY GERD #90 tabs 08/28/24 release sumatriptan succinate 50 mg tablet See Rx Instructions PO .COMPLEX 08/28/24 #14 tabs propranolol 10 mg tablet 10 mg PO BID #60 tabs hydrocodone 5 mg-acetaminophen 325 1 tab PO Q6H PRN pa in #10 tabs 01/07/25 mg tablet ondansetron 4 mg disintegrating 4 mg PO Q6H PRN nausea and 01/07/25 tablet vomiting #10 tabs Allergies Allergy/AdvReac Type Severity Reaction Status Date / Time No Known Allergies Allergy Verified 01/07/25 17:42 [facility] Disclaimer: The information contained in this section may have been updated after the patient was seen, as this information can be updated by other users. Medical History Epigastric abdominal pain Burning chest pain Tonsillitis, chronic ONOFRE (stress urinary incontinence, female) Urine frequency Constipation Chronic GERD Heartburn Bloody stool GERD (gastroesophageal reflux disease) PCOS (polycystic ovarian syndrome) Depression Hypertension Bicornate uterus Surgical History Hx of breast biopsy History of laparoscopy uterine wall delivery delivered Family History Other Diabetes Hypertension Social History Smoking Status: Never smoker alcohol intake: current alcohol intake frequency: holidays/special occasions only substance use type: denies use current occupational status: employed Travel in the last 8 weeks?: None caffeine: No Have you lived/traveled outside US in past 30 days?: No Contact w/someone who lives/traveled outside US past 30 days?: No Exposure to someone with infectious disease in past 14 days?: No Do you have a fever (greater than 100.4 F or 38 C)?: No Have you tested positive for COVID-19?: No Exposed to someone with COVID-19 in past 14 days?: No Do you have a sore throat?: No Do you have a cough?: No Do you have any weakness?: No Do you have any diarrhea?: No Are you experiencing any unusual bleeding?: No Do you have any muscle aches/pain?: No Do you have any abdominal pain?: No Are you experiencing loss of taste or smell?: No Other Medical History Have you received the Flu Vaccine for this season: No Have you received the Pneumonia Vaccine: No ROS Obtained: Yes All systems reviewed & no additional complaints except as documented and Yes Systems reviewed as appropriate & no additional complaints except as documented Physical Exam General General appearance: alert and in no apparent distress Head Head exam: atraumatic, normocephalic and normal inspection Eye Eye exam: Present normal appearance, PERRL and EOMI; Absent scleral icterus ENT ENT exam: Present normal exam and normal external ear exam Neck Neck exam: Present normal inspection and full ROM Chest Chest inspection: Present normal inspection, symmetric chest wall rise and other (2+ DP pulse in the right lower extremity) Respiratory Respiratory exam: Present normal lung sounds bilaterally; Absent respiratory distress or wheezes Cardiovascular Cardiovascular exam: Present regular rate, normal rhythm and normal heart sounds Abdominal Exam Abdominal exam: Present soft and distention; Absent tenderness, guarding or rebound Extremities Exam Extremities exam: Present normal inspection and full ROM Expanded Lower Extremity Exam Right: Hip/Pelvis exam: Present other (Tenderness along the medial and lateral malleolus, some associated bruising, surgical scars without erythema) Back Exam Back exam: Present normal inspection and full ROM Neurological Exam Neurological exam: Present alert, oriented X3 and other (Sensation intact in the right lower extremity) Psychiatric Psychiatric exam: Present normal affect and normal mood Skin Skin exam: Present warm and dry Medical Decision Making Medical Records Screening: Per USPSTF and CDC recommendations, given the prevalence of disease in our region, it is our hospital?s policy to screen for HIV and viral Hepatitis for all patients aged 18 and over and those with ongoing risk factors. Sujit Inquiry Pt receiving controlled substance: No Vital Signs: 02/05/25 11:13 02/05/25 11:31 Temperature 98.2 F Temperature Source Oral Pulse Rate 77 Pulse Rate [Left] 87 Respiratory Rate 16 18 Blood Pressure 177/113 H Blood Pressure [Left Leg] 143/97 H Blood Pressure Mean 134 Blood Pressure Mean [Left Leg] 112 Blood Pressure Source [Left Leg] Automatic Cuff 02 Sat by Pulse Oximetry 96 96 Oxygen Delivery Method Room Air Lab Data Lab results reviewed: Yes I reviewed the patient's lab results. Orders (Tests/Meds): ED MEDICATIONS Discontinued Medications Generic Name Dose Route Start Last Admin Trade Name Freq PRN Reason Stop Dose Admin Acetaminophen 1,000 mg 02/05/25 11:40 02/05/25 12:02 Acetaminophen 500mg Tab PO 02/05/25 11:41 1,000 mg ONCE ONE Administration Ibuprofen 600 mg 02/05/25 11:40 02/05/25 12:02 Ibuprofen 600 Mg Tablet PO 02/05/25 11:41 600 mg ONCE ONE Administration ORDERS Category Date Time Status Ankle XR -Right minimum 3 Views [XR ankle RT min 3V] Exams 02/05/25 11:40 Completed Stat Fibula/tibia XR right 2 views [XR tibia fibula RT 2V] Exams 02/05/25 11:40 Completed Stat Foot XR right minimum 3 views [XR foot RT min 3V] Stat Exams 02/05/25 11:39 Completed Medical Decision Narrative: Patient is an otherwise healthy 29-year-old female who presented to the emergency department with right lower extremity pain on arrival, patient was hemodynamically stable with unremarkable vital signs. Patient reported bearing weight on her right lower extremity after fall, patient is currently in a boot and not supposed to be bearing weight. On exam, patient had some old bruising, surgical scars in place. Patient did have some tenderness along the medial and lateral malleolus. Patient's sensation was intact, appropriate DP pulse. Differential includes but not limited to: Sprain, strain, new fracture, hardware misalignment, amongst others. At this time, x-rays were obtained. X-rays were reviewed and interpreted by myself and showed no new acute fractures, hardware was in place without hardware malalignment. Patient likely with a sprain or mild muscular pain. Patient was recommended to continue wearing her boot per orthopedic recommendations and to follow-up outpatient in clinic as needed. Patient was otherwise discharged home in stable condition. Critical Care Critical Care Time Critical Care Time: No
--- OUTSIDE RECORDS SUMMARY | 2025-02-05 11:31 | XMS_ITS | Encounter Summary ---
Author Organization [employer] ([place], [place], [place], [place]) Address [address] [place] [address] Care Team Providers Care Global Regulatory Lead Name Role Phone Unavailable Primary Care Provider Unavailabl e Encounter Details Date Type Department Care Team (Late st Contact Info) Description 03/30/2019 Transcribed Document [facility] [place] [address] [place] [address] ProviderGregoria MD [address] [place] [address] Social History Tobacco Use Types Packs/Day Years [...] these instructions at home: Medicines ??? Take [id number] and prescription medicines only as told by [...] and water are not available, use hand atm mechanic. ? Change your dressing as told by [...] keep your urine pale yellow. ? Take [id number] or prescription medicines. ? Eat foods that [...] 06/22/2016 Document Revised: 01/05/2018 Document Reviewed: 01/05/2018 [employer] Interactive Patient Education ? 2019 [employer] General Anesthesia, Adult, Care After This [...] activities are safe for you. ??? Take [id number] and prescription medicines only as told by [...] 10/18/2001 Document Revised: 02/25/2018 Document Reviewed: 02/25/2018 [employer] Interactive Patient Education ? 2019 [employer] Electronically signed by Rochelle Gold Conversion Certified Indoor Environmentalist Cerner at 11/13/2022 11:19 AM CDT documented in this encounter Plan of Treatment Not on file documented as of this encounter Visit Diagnoses Not on filedocumented in this encounter
--- OUTSIDE RECORDS SUMMARY | 2025-02-05 11:31 | XMS_ITS | Referral Summary ---
Author Organization [employer] ([place], [place], [place], [place]) Address [address] [place] [address] Care Team Providers Care Independent Living Instructor Name Role Phone Unavailable Primary Care Provider [...] drink = 0.6 oz pur e alcohol) Food Insecurity Answer Date Recorded Food run [...] Date Chente rded Speak language other than Mosotho at home Not on file 08/13/2023 Want help with school or training Not on file 08/13/2023 Substance Use Answer Date Recorded Used [...] Plan of Treatment Not on file Insurance [facility]
--- OUTSIDE RECORDS SUMMARY | 2025-02-05 11:31 | XMS_ITS | Encounter Summary ---
Author Organization [employer] ([place], [place], [place], [place]) Address [address] [place] [address] Care Team Providers Care Gun Examiner Name Role Phone Unavailable Primary Care Provider Unavailabl e Encounter Details Date Type Department Care Team (Late st Contact Info) Description 03/30/2019 Transcribed Document [facility] [place] [address] [place] [address] ProviderGregoria MD [address] [place] [address] Social History Tobacco Use Types Packs/Day Years [...] CHARO SAPP/Sex: 1995 Female Med Rec #: [id number] Physician: WES THOMPSON MD-OBG Financial #: [id number] Pt. Type: O Room/Bed: Admit/Disch: 03/30/19 06:09:00 - Institution: [facility] Main OR PostOp Case Times Entry 1 In PACU II 03/30/19 10:17:00 Ready for PACU II 03/30/19 11:02:00 Discharge Discharge from PACU 03/30/19 11:02:00 II Last Modified By: LILA SZYMANSKI RN 03/30/19 11:13:13 [facility] Main OR PostOp Case Times Audit 03/30/19 11:13:13 Slot Key Person: COLEMAM Modifier: SCHROEJ <+> 1 Ready for PACU II Discharge <+> 1 In PACU II <+> 1 Discharge from PACU II 03/30/19 10:12:07 Slot Key Person: COLEMAM Modifier: COLEMAM 1 <-> Ready for [...]
--- OUTSIDE RECORDS SUMMARY | 2025-02-05 11:31 | XMS_ITS | Encounter Summary ---
Author Organization [employer] ([place], [place], [place], [place]) Address [address] [place] [address] Care Team Providers Care Consultative Sales Associate Name Role Phone Unavailable Primary Care Provider Unavailabl e Reason for Visit * Reason Comments Medication Refill Encounter Details Date Type Department Care Team (Late st Contact Info) Description 03/03/2023 Refill [facility] UNIFORMS SALES REPRESENTATIVE - [address] [place] [id number] José Miguel Beach MD [address] [place] [address] Social History Tobacco Use Types Packs/Day Years [...]
--- OUTSIDE RECORDS SUMMARY | 2025-02-05 11:31 | XMS_ITS | Encounter Summary ---
Author Organization [employer] ([place], [place], [place], [place]) Address [address] [place] [address] Care Team Providers Care Bus Boy Name Role Phone Unavailable Primary Care Provider Unavailabl e Encounter Details Date Type Department Care Team (Late st Contact Info) Description 03/30/2019 Transcribed Document [facility] [place] [address] ProviderGregorai MD [address] [place] [address] Social History Tobacco Use Types Packs/Day Years [...] PROCEDURE: 03/30/2019 SURGEON: José Miguel Beach MD NOTCH GRINDER: Dylan Jacob PREOPERATIVE DIAGNOSIS(ES): 1. Uterine anomaly. [...] carefully transected the uterine septum with my marketing support assistant looking from above to make sure [...] 0 V-Loc suture and we placed a vgddng-gm-acyzc suture in that uterine wall perforation just [...] 03/30/2019 10:38:59 CC1: José Miguel Beach M.D. documented in this encounter Plan of Treatment Not on file documented as of this encounter Visit Diagnoses Not on filedocumented in this encounter
--- OUTSIDE RECORDS SUMMARY | 2025-02-05 11:31 | XMS_ITS | Encounter Summary ---
Author Organization [employer] ([place], [place], [place], [place]) Address [address] [place] [address] Care Team Providers Care Photo Lab Manager Name Role Phone Unavailable Primary Care Provider Unavailabl e Encounter Details Date Type Department Care Team (Late st Contact Info) Description 03/30/2019 Transcribed Document [facility] [place] [address] [place] [address] ProviderGregoria MD [address] [place] [address] Social History Tobacco Use Types Packs/Day Years [...] CHARO SAPP/Sex: 1995 Female Med Rec #: [id number] Physician: WES THOMPSON MD-OBG Financial #: [id number] Pt. Type: O Room/Bed: Admit/Disch: 03/30/19 06:09:00 - [place] [facility] [place] Case Times Entry 1 In Preop 03/30/19 05:55:00 Ready for Holding n/a Room Patient Ready for 03/30/19 07:06:00 Surgery Patient Out of Preop 03/30/19 07:27:00 Patient Out of n/a Holding Room Last Modified By: SUDHEER GREENE RN 03/30/19 09:55:25 [facility] PreOp Case Times Audit 03/30/19 09:55:25 Client Services Analyst: [email or web address] Modifier: [email or web address] <+> 1 Patient Out of Preop Finalized By: SUDHEER GREENE, RN Document Signatures Signed By: SUDHEER GREENE RN 03/30/19 09:55 Electronically signed by [facility] Conversion Pharmacist Assistant Cerner at 11/13/2022 11:14 AM CDT documented in this encounter Plan of Treatment Not on file documented as of this encounter Visit Diagnoses Not on filedocumented in this encounter
--- OUTSIDE RECORDS SUMMARY | 2025-02-05 11:31 | XMS_ITS | Encounter Summary ---
Author Organization [employer] ([place], [place], [place], [place]) Address [address] [place] [address] Care Team Providers Care Acoustical Tile Patternmaker Name Role Phone Unavailable Primary Care Provider Unavailabl e Encounter Details Date Type Department Care Team (Late st Contact Info) Description 03/29/2019 Transcribed Document [facility] [place] [facility] [place] [address] ProviderGregoria MD [address] [place] [address] Social History Tobacco Use Types Packs/Day Years [...]
--- OUTSIDE RECORDS SUMMARY | 2025-02-05 11:31 | XMS_ITS | Encounter Summary ---
Author Organization [employer] ([place], [place], [place], [place]) Address [address] [place] [address] Care Team Providers Care Electro Mechanical Designer Name Role Phone Unavailable Primary Care Provider Unavailabl e Encounter Details Date Type Department Care Team (Late st Contact Info) Description 03/30/2019 Transcribed Document [facility] [place] Family Medicine [address] [place] [address] ProviderGregoria MD [address] [place] [address] Social History Tobacco Use Types Packs/Day Years [...] CHARO SAPP/Sex: 1995 Female Med Rec #: [id number] Physician: WES THOMPSON MD-OBG Financial #: [id number] Pt. Type: O Room/Bed: Admit/Disch: 03/30/19 06:09:00 - 03/30/19 11:02:00 Institution: [facility] [place] IntraOp Case Attendance Entry 1 Entry 2 Entry 3 Case Attendee WES THOMPSON MD-OBG Ricardo Glaser RN RENFROE, REBECCA, CRNA Role Performed Surgeon/Proceduralist, Special Class Welder, First FLATWORK IRONER/Nurse Steel Die Engraver First Time In 03/30/19 07:33:00 03/30/19 07:33:00 [...] FA Role Performed Scrub, First Scrub, Second Equity Sales Assistant, First Time In 03/30/19 07:33:00 03/30/19 07:33:00 [...] Praneeth Bazan Cheryl B, RN Role Performed White Sugar Boiler, Ancillary Special Class Welder, First Time In 03/30/19 07:33:00 03/30/19 08:58:00 Time Out 03/30/19 09:30:00 03/30/19 09:30:00 Procedure Hysteroscopy Operative, Hysteroscopy Operative, Laparoscopy Diagnostic, Laparoscopy Diagnostic, Lysis Adhesions, Lysis Adhesions, Ovarian Cystectomy Ovarian Cystectomy Laparoscopic Laparoscopic Other Attendee BREAK RELIEF Superficial Wound Closed By: Last Modified By: Ricardo Glaser RN Cutwright, Shawsta, RN 03/31/19 09:52:36 03/31/19 09:52:36 [facility] IntraOp Case Attendance Audit 03/31/19 09:52:36 Nuclear Officer: CUTWRISK Modifier: CUTWRISK 1 <*> Procedure Hysteroscopy Operative, Laparoscopy Diagnostic 2 <*> Procedure Hysteroscopy Operative, Laparoscopy Diagnostic 3 <*> Procedure Hysteroscopy Operative, Laparoscopy Diagnostic 4 <*> Procedure Hysteroscopy Operative, Laparoscopy Diagnostic 5 <*> Procedure Hysteroscopy Operative, Laparoscopy Diagnostic 6 <*> Procedure Hysteroscopy Operative, Laparoscopy Diagnostic 7 <*> Procedure Hysteroscopy Operative, Laparoscopy Diagnostic 8 <*> Procedure Hysteroscopy Operative, Laparoscopy Diagnostic 03/30/19 09:30:40 Nuclear Officer: CUTWRISK Modifier: CUTWRISK 1 <+> Time Out [...] Procedure Hysteroscopy Operative, Laparoscopy Diagnostic 03/30/19 09:08:32 Nuclear Officer: CUTWRISK Modifier: CUTWRISK 1 <+> Time In [...] [facility] IntraOp Case Times Audit 03/30/19 09:30:38 Nuclear Officer: CUTWRISK Modifier: CUTWRISK <+> 1 Out Room Time <+> 1 Stop Time 03/30/19 09:25:51 Nuclear Officer: CUTWRISK Modifier: CUTWRISK <+> 1 Stop Time [...] [facility] IntraOp Counts Verification Audit 03/31/19 09:52:38 Nuclear Officer: CUTWRISK Modifier: CUTWRISK 1 <*> Procedure Hysteroscopy Operative, Laparoscopy Diagnostic 2 <*> Procedure Hysteroscopy Operative, Laparoscopy Diagnostic 3 <*> Procedure Hysteroscopy Operative, Laparoscopy Diagnostic 03/30/19 09:01:06 Nuclear Officer: CUTWRISK Modifier: CUTWRISK <+> 3 Procedure <+> [...] [facility] IntraOp Counts Final Audit 03/31/19 09:52:40 Nuclear Officer: CUTWRISK Modifier: CUTWRISK 1 <*> Procedure Hysteroscopy Operative, Laparoscopy Diagnostic 03/30/19 09:19:32 Nuclear Officer: CUTWRISK Modifier: CUTWRISK 1 <*> Procedure Hysteroscopy [...] RN 03/30/19 08:14:24 [facility] IntraOp General Case Research Manufacturing Operator 1 Case Information OR OR 04 [facility] [...] 0.25% w/ epinephrine 1:200,000 30ml vial - [id number] Route of LOCAL Administration Dose Volume QS [...] [facility] IntraOp Patient Positioning Audit 03/31/19 09:52:39 Nuclear Officer: PARRISHWRISK Modifier: CUTWRISK 1 <*> Procedure Laparoscopy Diagnostic [...] Intra Op Sign Out Audit 03/30/19 09:01:14 Nuclear Officer: CUTWRISK Modifier: CUTWRISK <+> 1 RN Sign Out Signature Date/Time [facility] IntraOp Skin Prep Entry 1 Procedure Lysis Adhesions, Ovarian Cystectomy Laparoscopic Prescribed N/A Pre-Surgical Prep Completed Prep Area VAGINA/ABDOMEN Intraop Prep Integumentary WDL Assessment WDL Prep Agents Betadine scrub, Chloraprep Prep by Ricardo Glaser RN Hair Removal Last Modified By: Ricardo Glaser RN 03/31/19 09:52:39 [facility] IntraOp Skin Prep Audit 03/31/19 09:52:39 Nuclear Officer: CUTWRISK Modifier: CUTWRISK <+> 1 Procedure [facility] [...] [facility] IntraOp Surgical Procedures Audit 03/31/19 09:52:30 Nuclear Officer: CUTWRISK Modifier: CUTWRISK <+> 3 Procedure <+> 3 Primary Procedure <+> 3 Primary Surgeon <+> 3 Specialty <+> 3 Start <+> 3 Stop <+> 3 Wound Class <+> 3 Anesthesia Type <+> 4 Procedure <+> 4 Primary Procedure <+> 4 Primary Surgeon <+> 4 Specialty <+> 4 Start <+> 4 Stop <+> 4 Wound Class <+> 4 Anesthesia Type 03/30/19 09:25:56 Nuclear Officer: CUTWRISK Modifier: CUTWRISK <+> 1 Stop <+> 2 Stop 03/30/19 09:19:19 Nuclear Officer: CUTWRISK Modifier: CUTWRISK 1 <*> Procedure Hysteroscopy Operative 1 <*> Additional Procedure Description HYSTEROSCOPIC RESECTION OF LARGE UTERINE SEPTUM WITH DIAGNOSTIC LAPAROSCOPY, LYSIS OF ADHESIONS 03/30/19 09:05:29 Nuclear Officer: CUTWRISK Modifier: CUTWRISK 1 <*> Procedure Hysteroscopy [...] [facility] IntraOp Time Out Audit 03/31/19 09:52:39 Nuclear Officer: PARRISHWRISK Modifier: CUTWRISK 1 <*> Procedure to [...]
--- OUTSIDE RECORDS SUMMARY | 2025-02-05 11:31 | XMS_ITS | Clinical Summary ---
Author Organization [facility] Address [facility] [place] [address] Care Team Providers Care Kilnman Name Role Phone Pcp, No Primary Care [...] therelease of HIV test results or diagnoses. [id number] Health Encounters Date Type Department Care Team Description 11/30/2024 Chart Note [facility] Reproductive Endocrinology [place] [address] MattaJl guzman MD LM WITH PATIENT TO CALL FOR AN APPOINTMENT. from Last 3 Months Social History Tobacco Use Types Packs/Day Years Used Date Smoking Tobacco: Never Assessed Comments Unknown Sex and Gender Information Value Date Recorded Sex Assigned at Not on file Legal Sex Female 1:31 PM EDT Gender Identity Not on file Sexual Orientation Not on file Plan of Treatment Not on file Insurance [employer] Care Teams Kilnman Relationship Specialty Start Date End Date Pcp, No No Address PCP - General 12/05/24
--- OUTSIDE RECORDS SUMMARY | 2025-02-05 11:31 | XMS_ITS | Encounter Summary ---
Author Organization [employer] ([place], [place], [place], [place]) Address [address] [place] [address] Care Team Providers Care Separating Machine Operator Name Role Phone Unavailable Primary Care Provider Unavailabl e Encounter Details Date Type Department Care Team (Late st Contact Info) Description 03/30/2019 Transcribed Document [facility] [place] Family Medicine [address] [place] [address] ProviderGregoria MD [address] [place] [address] Social History Tobacco Use Types Packs/Day Years [...] Source : Stated Height Entry Format : [place] Height, Feet : 5 ft(Converted to: 152 cm, 60 Inch) Height, Inches : 6 Inch(Converted to: 0 ft 6 Inch, 15.24 cm) Clinical Height : 167.64 cm Weight Source : Standing scale Weight Entry Format : [place] Clinical Dosing Weight : 103.64 kg Weight, Pounds : 228 lb Body Surface Area (BSA) : 2.12 m2 Body Mass Index : 36.9 kg/m2 (SD) [place] Body Weight : 59 kg Gely Love Rn - 03/30/2019 6:49 EDT Health Histories Smoking Status : Never (less than 100 in lifetime; none in last 30 days) Smokeless Tobacco Status : Never Implant/Device Type, Informatics Nurse and Model : denies Gely Love Rn - 03/30/2019 6:49 [...] Obtained From : Patient Primary Language : [place] Preferred Communication Mode : Verbal Communication Barrier [...] Scale Risk Level : 0-24 Low Risk [place] Fall Interventions : Adequate lighting, Bed in [...] the text rendition version of the form. [place] Coma Luis Best Motor Response : Obey commands Luis Best Verbal Response : Oriented Luis Eye Opening Response : Spontaneous [place] Coma Score : 15 Gely Love Rn - 03/30/2019 6:49 EDT documented in this encounter Plan of Treatment Not on file documented as of this encounter Visit Diagnoses Not on filedocumented in this encounter
--- OUTSIDE RECORDS SUMMARY | 2025-02-05 11:31 | XMS_ITS | Encounter Summary ---
Author Organization [employer] ([place], [place], [place], [place]) Address [address] [place] [address] Care Team Providers Care Retail Specialist Name Role Phone Unavailable Primary Care Provider Unavailabl e Encounter Details Date Type Department Care Team (Late st Contact Info) Description 03/30/[address] [facility] [place] Family Medicine [address] [place] [address] ProviderGregoria MD [address] [place] [address] Social History Tobacco Use Types Packs/Day Years [...] CHARO SAPP/Sex: 1995 Female Med Rec #: [id number] Physician: WES THOMPSON MD-OBG Financial #: [id number] Pt. Type: O Room/Bed: Admit/Disch: 03/30/19 06:09:00 - [place] [facility] [place] PACU Case Times Entry 1 In PACU I 03/30/19 09:32:00 Ready for PACU 03/30/19 10:17:00 Discharge Discharge from PACU 03/30/19 10:17:00 I Last Modified By: DAGO ISAAC 03/30/19 10:12:19 Finalized By: DAGO ISAAC Document Signatures Signed By: DAGO ISAAC 03/30/19 10:12 Electronically signed by [facility] Conversion Public Policy Coordinator Cerner at 11/13/2022 11:17 AM CDT documented in this encounter Plan of Treatment Not on file documented as of this encounter Visit Diagnoses Not on filedocumented in this encounter
--- OUTSIDE RECORDS SUMMARY | 2025-02-05 11:31 | XMS_ITS | Clinical Summary ---
Author Organization [employer] ([place], [place], [place], [place]) Address [address] [place] [address] Care Team Providers Care Lab Rn Name Role Phone Unavailable Primary Care Provider [...] Date Chente rded Speak language other than Thai at home Not on file 08/13/2023 Want [...] and Screening (12+) 10/21/2023 10/20/2022 COVID-19 VACCINE ( - 2023-2 5 season) 2024 04/28/2021, 04/07/2021 Influenza Vaccine (#1) 2025 , 04/18/2010 DTAP/TDAP/TD VACCINES (3 - T d or Tdap) 04/27/2025 04/27/2015, 04/18/2010 Pneumococcal Vaccine: 0-49 Years Aged Out No longer eligible b ased on patient's age to complete this topic Insurance [facility]
--- OUTSIDE RECORDS SUMMARY | 2025-02-05 11:31 | XMS_ITS | Encounter Summary ---
Author Organization [employer] ([place], [place], [place], [place]) Address [address] [place] [address] Care Team Providers Care Financial Foundations Representative Name Role Phone Unavailable Primary Care Provider Unavailabl e Encounter Details Date Type Department Care Team (Late st Contact Info) Description 03/29/2019 Transcribed Document [facility] [place] Family Medicine [address] [place] [address] ProviderGregoria MD [address] [place] [address] Social History Tobacco Use Types Packs/Day Years [...] On: 03/29/2019 14:45 EDT by Connie Dickinson, RN Vital Measurements Temperature Source : Temporal artery [...] Source : Stated Height Entry Format : [place] Height, Feet : 5 ft(Converted to: 152 cm, 60 Inch) Height, Inches : 6 Inch(Converted to: 0 ft 6 Inch, 15.24 cm) Clinical Height : 167.64 cm Weight Source : Standing scale Weight Entry Format : [place] Clinical Dosing Weight : 106.36 kg Weight, Pounds : 234 lb Body Surface Area (BSA) : 2.14 m2 Body Mass Index : 37.8 kg/m2 (HI) [place] Body Weight : 59 kg Connie Dickinson [...] Obtained From : Patient Primary Language : Kinyarwanda Preferred Communication Mode : Verbal Communication Barrier [...]
--- OUTSIDE RECORDS SUMMARY | 2025-02-05 11:31 | XMS_ITS | Encounter Summary ---
Author Organization [employer] ([place], [place], [place], [place]) Address [address] [place] [address] Care Team Providers Care Fire Prevention Captain Name Role Phone Unavailable Primary Care Provider Unavailabl e Encounter Details Date Type Department Care Team (Late st Contact Info) Description 03/30/2019 Transcribed Document [facility] [place] Family Medicine [address] [place] [address] ProviderGregoria MD [address] [place], [place] [address] Social History Tobacco Use Types Packs/Day Years [...] Griffiths MD - 03/30/2019 10:35 AM CDT [place] [id number] CHARO HERNADEZ :1995 Visit Time:03/30/2019 What to do next [...] When 04/10/2019 02:15 PM EDT Where: [address] [place] [address]- [place] (1) Medications What How Much When Instructions [...] these instructions at home: Medicines ??? Take zbjx-lvs-qlszgyy and prescription medicines only as told by [...] and water are not available, use hand door cutter. ? Change your dressing as told by [...] keep your urine pale yellow. ? Take zkxc-hzs-zstfhhh or prescription medicines. ? Eat foods that [...] 06/22/2016 Document Revised: 01/05/2018 Document Reviewed: 01/05/2018 [employer] Patient Education ?? 2019 [employer] General Anesthesia, Adult, Care After This [...] activities are safe for you. ??? Take lekk-hvx-szjffkg and prescription medicines only as told by [...] 10/18/2001 Document Revised: 02/25/2018 Document Reviewed: 02/25/2018 [employer] Patient Education ?? 2019 [employer]. acetaminophen and hydrocodone (a SEET a MIN oh fen and dayanara droe KOE done) Hycet, Lorcet, Oreana, Verdrocet, Vicodin, Xodol, Zamicet What is the [...] may report side effects to FDA at 8-757-DSS-2244. What other drugs will affect acetaminophen and [...] affect acetaminophen and hydrocodone, including prescription and bhfi-jcr-aolkaef medicines, vitamins, and herbal products. Not all [...] to ensure that the information provided by [employer] ('[employer]') is accurate, up-to-date, and complete, but no guarantee is made to that effect. Drug information contained herein may be time sensitive. [employer] information has been compiled for use by healthcare practitioners and consumers in the [place] and therefore [employer] does not warrant that uses outside of the [place] are appropriate, unless specifically indicated otherwise. [employer]'s drug information does not endorse drugs, diagnose patients or recommend therapy. [employer] drug information is an informational resource designed [...] effective or appropriate for any given patient. [employer] does not assume any responsibility for any aspect of healthcare administered with the aid of information [employer] provides. The information contained herein is not intended to cover all possible uses, directions, precautions, warnings, drug interactions, allergic reactions, or adverse effects. If you have questions about the drugs you are taking, check with your doctor, nurse or pharmacist. Copyright 9639-7278 [employer] Version: 15.02. Revision Date: 05/30/2018. Emergency Awareness [...] Assistance with quitting is available by contacting 2-438-IRYT-NOW. This is a free resource providing counseling, [...] 07:05:00 HCG Urine Qualitative: Negative Patient Name:CHARO HERNADEZ I have received this information and was given the opportunity to ask questions. Patient/Strip Polisher Name: Patient/Strip Polisher Signature: Relationship to Patient: Clinician/Hospital Strip Polisher Signature: Date: documented in this encounter Plan of Treatment Not on file documented as of this encounter Visit Diagnoses Not on filedocumented in this encounter
--- NOTE | 2025-02-05 11:39 | XR_ITS ---
PROCEDURE INFORMATION: Exam: XR Right Foot Exam date and time: 02/05/2025 11:47 AM Age: 29 years old Clinical indication: Injury or trauma; Fall; Other: Pain; Additional info: Ankle pain, S/P fall with hardware in place TECHNIQUE: Imaging protocol: Radiologic exam of the right foot. Views: 3 or more views. COMPARISON: CR XR FOOT RT MIN 3V 02/05/2025 11:47 AM FINDINGS: Bones/joints: There is no evidence of acute fracture.There is no evidence of malalignment or dislocation. Internal fixation devices in the distal fibula and medial malleolus. Soft tissues: Normal. IMPRESSION: 1. There is no evidence of acute fracture.There is no evidence of malalignment or dislocation. 2. Internal fixation devices in the distal fibula and medial malleolus.
--- NOTE | 2025-02-05 11:40 | XR_ITS ---
PROCEDURE INFORMATION: Exam: XR Right Ankle Exam date and time: 02/05/2025 11:47 AM Age: 29 years old Clinical indication: Injury or trauma; Fall; Other: Pain; Additional info: Ankle pain, S/P fall with hardware in place TECHNIQUE: Imaging protocol: Radiologic exam of the right ankle. Views: 3 or more views. COMPARISON: CR XR ANKLE RT MIN 3V 01/07/2025 5:48 PM FINDINGS: Bones/joints: Long plate and screws along the distal fibula. Two screws in the medial malleolus. Fracture fragments are in good alignment.. Soft tissues: Soft tissue swelling of the ankle IMPRESSION: Long plate and screws along the distal fibula. Two screws in the medial malleolus. Fracture fragments are in good alignment..
--- NOTE | 2025-02-05 11:40 | XR_ITS ---
PROCEDURE INFORMATION: Exam: XR Right Tibia and Fibula Exam date and time: 02/05/2025 11:47 AM Age: 29 years old Clinical indication: Injury or trauma; Fall; Other: Pain; Additional info: Ankle pain, S/P fall with hardware in place TECHNIQUE: Imaging protocol: Radiologic exam of the right tibia and fibula. Views: 2 views. COMPARISON: CR XR TIBIA FIBULA RT 2V 01/07/2025 5:48 PM FINDINGS: Bones/joints: Long plate and screws in the distal fibula. Two screws in the medial malleolus. Fracture fragments are healing in good alignment.. Soft tissues: Soft tissue swelling of the ankle IMPRESSION: Long plate and screws in the distal fibula. Two screws in the medial malleolus. Fracture fragments are healing in good alignment..
--- NOTE | 2025-02-05 11:51 | PC.NURSE ---
XR AT BEDSIDE
[2025-02-05] MEDS: IBUPROFEN 600 MG TABLET PO (12:02)
[2025-02-05] MEDS: ACETAMINOPHEN 500MG TAB 1000 MG PO (12:02)
== END 2025-02-05 13:44 | disposition home or self-care (01) ==
PROVIDERS: Emergency Provider Student in an Organized Health Care Education/Training Program; PCP Family Medicine
DX: S93.401A Sprain of unspecified ligament of right ankle, initial encounter (principal); W19.XXXA Unspecified fall, initial encounter
CPT/HCPCS: 73590; 73610; 73630; 99284

== ENCOUNTER 2025-02-22 14:08 | Outpatient (CLI) | payer BC, SELFPAY ==
--- NOTE | 2025-02-22 | CA_ITS ---
FINAL REPORT CLINICAL HISTORY: 6 weeks post op right ankle fracture with chronic swelling COMPARISON: None FINDINGS: DUPLEX VENOUS SONOGRAPHY OF THE RIGHT LOWER EXTREMITY Multiple transverse and longitudinal scans were performed of the femoropopliteal deep venous system, with augmentation and compression maneuvers. HISTORY: Pain, edema FINDINGS: Normal phasic flow was noted in the visualized deep venous system. No intraluminal increased echogenicity is noted to suggest thrombus. There is normal compression and augmentation of the venous structures. No abnormal venous collaterals are seen. IMPRESSION: No evidence of deep venous thrombosis of the right lower extremity. Reviewed, Interpreted and Dictated by Deb Beach MD Transcribed by Latonya Farias Authenticated and [facility]
--- OUTSIDE RECORDS SUMMARY | 2025-02-22 14:10 | XMS_ITS | Encounter Summary ---
Author Organization [employer] ([place], [place], [place], [place]) Address [address] [place] [address] Care Team Providers Care Wind Projects Supervisor Name Role Phone Unavailable Primary Care Provider Unavailabl e Encounter Details Date Type Department Care Team (Late st Contact Info) Description 03/30/2019 Transcribed Document [facility] [place] [address] [place] [address] ProviderGregoria MD [address] [place] [address] Social History Tobacco Use Types Packs/Day Years [...] Source : Stated Height Entry Format : Alfalfa Height, Feet : 5 ft(Converted to: 152 cm, 60 Inch) Height, Inches : 6 Inch(Converted to: 0 ft 6 Inch, 15.24 cm) Clinical Height : 167.64 cm Weight Source : Standing scale Weight Entry Format : Alfalfa Clinical Dosing Weight : 103.64 kg Weight, Pounds : 228 lb Body Surface Area (BSA) : 2.12 m2 Body Mass Index : 36.9 kg/m2 ([place]) [place] Body Weight : 59 kg Gely Love Rn - 03/30/2019 6:49 EDT Health Histories Smoking Status : Never (less than 100 in lifetime; none in last 30 days) Smokeless Tobacco Status : Never Implant/Device Type, Food Clerk and Model : denies Gely Love Rn [...] Obtained From : Patient Primary Language : Pakistani Preferred Communication Mode : Verbal Communication Barrier [...] Scale Risk Level : 0-24 Low Risk Hutchinson Fall Interventions : Adequate lighting, Bed in [...] the text rendition version of the form. Horton Coma Luis Best Motor Response : Obey commands Luis Best Verbal Response : Oriented Luis Eye Opening Response : Spontaneous Horton Coma Score : 15 Gely Love Rn - 03/30/2019 6:49 EDT documented in this encounter Plan of Treatment Not on file documented as of this encounter Visit Diagnoses Not on filedocumented in this encounter
--- OUTSIDE RECORDS SUMMARY | 2025-02-22 14:10 | XMS_ITS | Clinical Summary ---
Author Organization [facility] Address [facility] [place] [address] Care Team Providers Care Cleaner Laboratory Equipment Name Role Phone Pcp, No Primary Care [...] therelease of HIV test results or diagnoses. [id number] Encounters Date Type Department Care Team Description 11/30/2024 Chart Note [facility] Reproductive Endocrinology [place] [address] MattaJl guzman MD LM WITH PATIENT TO [...] on file Insurance BLUE ACCESS Care Teams Cleaner Laboratory Equipment Relationship Specialty Start Date End Date Pcp, No No Address PCP - General 12/05/24
--- OUTSIDE RECORDS SUMMARY | 2025-02-22 14:10 | XMS_ITS | Encounter Summary ---
Author Organization [employer] ([place], [place], [place], [place]) Address [address] [place] [address] Care Team Providers Care Supervisor Powdered Metal Name Role Phone Unavailable Primary Care Provider Unavailabl e Encounter Details Date Type Department Care Team (Late st Contact Info) Description 03/29/2019 Transcribed Document [facility] [place] [facility] [place] [address] ProviderGregoria MD [address] [place] [address] Social History Tobacco Use Types Packs/Day Years [...]
--- OUTSIDE RECORDS SUMMARY | 2025-02-22 14:10 | XMS_ITS | Clinical Summary ---
Author Organization [employer] ([place], [place], [place], [place]) Address [address] [place] [address] Care Team Providers Care Wood Fence Installer Name Role Phone Unavailable Primary Care Provider [...] Date Chente rded Speak language other than Argentine at home Not on file 08/13/2023 Want [...] patient's age to complete this topic Insurance [facility]
--- OUTSIDE RECORDS SUMMARY | 2025-02-22 14:10 | XMS_ITS | Encounter Summary ---
Author Organization [employer] ([place], [place], [place]) Address [address] [place] [address] Care Team Providers Care Recreation Therapy Aides Teacher Name Role Phone Unavailable Primary Care Provider Unavailabl e Encounter Details Date Type Department Care Team (Late st Contact Info) Description 03/30/2019 Transcribed Document [facility] [place] [address] [place] [address] ProviderGergoria MD [address] [place] [address] Social History Tobacco Use Types Packs/Day Years [...] these instructions at home: Medicines ??? Take tmky-xid-xpeaudp and prescription medicines only as told by [...] and water are not available, use hand workforce consultant. ? Change your dressing as told by [...] keep your urine pale yellow. ? Take ljhc-ver-aatzzxw or prescription medicines. ? Eat foods that [...] 06/22/2016 Document Revised: 01/05/2018 Document Reviewed: 01/05/2018 [employer] Interactive Patient Education ? 2019 [employer] General Anesthesia, Adult, Care After This [...] activities are safe for you. ??? Take jtuk-lqn-gcmgbuk and prescription medicines only as told by [...] 02/25/2018 Else[employer] Interactive Patient Education ? 2019 [employer] documented in this encounter Plan of Treatment Not on file documented as of this encounter Visit Diagnoses Not on filedocumented in this encounter
--- OUTSIDE RECORDS SUMMARY | 2025-02-22 14:10 | XMS_ITS | Encounter Summary ---
Author Organization [employer] ([place], [place], [place], [place]) Address [address] [place] [address] Care Team Providers Care Erp Programmer Name Role Phone Unavailable Primary Care Provider Unavailabl e Reason for Visit * Reason Comments Medication Refill Encounter Details Date Type Department Care Team (Late st Contact Info) Description 03/03/2023 Refill [facility] DATA ENTRY SPECIALIST - [address] [place] [id number] José Miguel Beach MD [address] [place] [address] Social History Tobacco Use Types Packs/Day Years [...]
--- OUTSIDE RECORDS SUMMARY | 2025-02-22 14:10 | XMS_ITS | Referral Summary ---
Author Organization [employer] ([place], [place], [place], [place]) Address [address] [place] [address] Care Team Providers Care Heel Gummer Name Role Phone Unavailable Primary Care Provider [...] Date Chente rded Speak language other than Algerian at home Not on file 08/13/2023 Want [...] on file Insurance [facility] [place] [address]
--- OUTSIDE RECORDS SUMMARY | 2025-02-22 14:10 | XMS_ITS | Encounter Summary ---
Author Organization [email or web address] ([place], [place], [place], [place]) Address [address] [place] [address] Care Team Providers Care Associate Quality Engineer Name Role Phone Unavailable Primary Care Provider Unavailabl e Encounter Details Date Type Department Care Team (Late st Contact Info) Description 03/30/2019 Transcribed Document [facility] [place] Family Medicine [address] [place] [address] ProviderGregoria MD [address] [place] [address] Social History Tobacco Use Types Packs/Day Years [...] CHARO SAPP/Sex: 1995 Female Med Rec #: [id number] Physician: WES THOMPSON MD-OBG Financial #: [id number] Pt. Type: O Room/Bed: Admit/Disch: 03/30/19 06:09:00 - Institution: [facility] PostOp Case Times Entry 1 In PACU II 03/30/19 10:17:00 Ready for PACU II 03/30/19 11:02:00 Discharge Discharge from PACU 03/30/19 11:02:00 II Last Modified By: LILA SZYMANSKI RN 03/30/19 11:13:13 [facility] Main OR PostOp Case Times Audit 03/30/19 11:13:13 Core Stacker: COLEMAM Modifier: SCHROEJ <+> 1 Ready for PACU II Discharge <+> 1 In PACU II <+> 1 Discharge from PACU II 03/30/19 10:12:07 Core Stacker: COLEMAM Modifier: COLEMAM 1 <-> Ready for [...]
--- OUTSIDE RECORDS SUMMARY | 2025-02-22 14:10 | XMS_ITS | Encounter Summary ---
Author Organization [employer] ([place], [place], [place], [place]) Address [address] [place] [address] Care Team Providers Care Head Rigger Name Role Phone Unavailable Primary Care Provider Unavailabl e Encounter Details Date Type Department Care Team (Late st Contact Info) Description 03/30/2019 Transcribed Document [facility] [place] Family Medicine [address] [place] [address] ProviderGregoria MD [address] [place] [address] Social History Tobacco Use Types Packs/Day Years [...] CHARO SAPP/Sex: 1995 Female Med Rec #: [id number] Physician: WES THOMPSON MD-OBG Financial #: [id number] Pt. Type: O Room/Bed: Admit/Disch: 03/30/19 06:09:00 - Institution[place] [facility] [place] PACU Case Times Entry 1 In PACU I 03/30/19 09:32:00 Ready for PACU 03/30/19 10:17:00 Discharge Discharge from PACU 03/30/19 10:17:00 I Last Modified By: DAGO ISAAC 03/30/19 10:12:19 Finalized By: DAGO ISAAC Document Signatures Signed By: DAGO ISAAC 03/30/19 10:12 Electronically signed by Alla [facility] Conversion Linux Admin Engineer Cerner at 11/13/2022 11:17 AM CDT documented in this encounter Plan of Treatment Not on file documented as of this encounter Visit Diagnoses Not on filedocumented in this encounter
--- OUTSIDE RECORDS SUMMARY | 2025-02-22 14:10 | XMS_ITS | Encounter Summary ---
Author Organization [employer] ([place], [place], [place], [place]) Address [address] [place] [address] Care Team Providers Care Material Handler 1St Shift Name Role Phone Unavailable Primary Care Provider Unavailabl e Encounter Details Date Type Department Care Team (Late st Contact Info) Description 03/30/2019 Transcribed Document [facility] [place] Family Medicine [address] [place] [address] ProviderGregoria MD [address] [place], [place] [address] Social History Tobacco Use Types Packs/Day Years [...] Griffiths MD - 03/30/2019 10:35 AM CDT [place] [id number] CHARO HERNADEZ :1995 Visit Time:03/30/2019 What to [...] EDT Where: [address] [place] [address]- [employer] (1) Medications What How Much When Instructions [...] these instructions at home: Medicines ??? Take gvsa-uxy-ajglhif and prescription medicines only as told by [...] and water are not available, use hand filament wound parts fabricator. ? Change your dressing as told by [...] keep your urine pale yellow. ? Take ysxd-vuy-wuorrfc or prescription medicines. ? Eat foods that [...] 06/22/2016 Document Revised: 01/05/2018 Document Reviewed: 01/05/2018 [employer] Interactive Patient Education ?? 2019 [employer] Inc. General Anesthesia, Adult, Care After This [...] activities are safe for you. ??? Take mbpx-mgr-dacmozm and prescription medicines only as told by [...] 10/18/2001 Document Revised: 02/25/2018 Document Reviewed: 02/25/2018 [employer] Interactive Patient Education ?? 2019 [employer]. acetaminophen and hydrocodone (a SEET a MIN oh fen and dayanara droe KOE done) Hycet, Lorcet, [place], Verdrocet, Vicodin, Xodol, Zamicet What is the [...] may report side effects to FDA at 9-600-RLS-4868. What other drugs will affect acetaminophen and [...] affect acetaminophen and hydrocodone, including prescription and kocl-bpw-zrsropm medicines, vitamins, and herbal products. Not all [...] to ensure that the information provided by [employer]. ('[employer]') is accurate, up-to-date, and complete, but no guarantee is made to that effect. Drug information contained herein may be time sensitive. [employer] information has been compiled for use by healthcare practitioners and consumers in the [place] and therefore [employer] does not warrant that uses outside of the [place] are appropriate, unless specifically indicated otherwise. [employer]'s drug information does not endorse drugs, diagnose patients or recommend therapy. [employer] drug information is an informational resource designed [...] effective or appropriate for any given patient. [employer] does not assume any responsibility for any aspect of healthcare administered with the aid of information [employer] provides. The information contained herein is not intended to cover all possible uses, directions, precautions, warnings, drug interactions, allergic reactions, or adverse effects. If you have questions about the drugs you are taking, check with your doctor, nurse or pharmacist. Copyright 9456-6815 [employer]. Version: 15.02. Revision Date: 05/30/2018. Emergency Awareness [...] Assistance with quitting is available by contacting 3-029-MAIE-NOW. This is a free resource providing counseling, [...] was given the opportunity to ask questions. Patient/Circus Performer Name: Patient/Circus Performer Signature: Relationship to Patient: Clinician/Hospital Circus Performer Signature: Date: documented in this encounter Plan of Treatment Not on file documented as of this encounter Visit Diagnoses Not on filedocumented in this encounter
--- OUTSIDE RECORDS SUMMARY | 2025-02-22 14:10 | XMS_ITS | Encounter Summary ---
Author Organization [employer] ([place], [place], [place], [place]) Address [address] [place] [address] Care Team Providers Care Relief Mate Name Role Phone Unavailable Primary Care Provider Unavailabl e Encounter Details Date Type Department Care Team (Late st Contact Info) Description 03/30/2019 Transcribed Document [facility] Medicine [address] [place] [address] ProviderGregoria MD [address] [place] [address] Social History Tobacco Use Types Packs/Day Years [...] CHARO SAPP/Sex: 1995 Female Med Rec #: [id number] Physician: WES THOMPSON MD-OBG Financial #: [id number] Pt. Type: O Room/Bed: Admit/Disch: 03/30/19 06:09:00 - [place] [facility] [place]Op Case Times Entry 1 In Preop 03/30/19 05:55:00 Ready for Holding n/a Room Patient Ready for 03/30/19 07:06:00 Surgery Patient Out of Preop 03/30/19 07:27:00 Patient Out of n/a Holding Room Last Modified By: SUDHEER GREENE RN 03/30/19 09:55:25 [facility] PreOp Case Times Audit 03/30/19 09:55:25 Panel Beater: [email or web address] Modifier: [email or web address] <+> 1 Patient Out of Preop Finalized By: SUDHEER GREENE, RN Document Signatures Signed By: SUDHEER GREENE RN 03/30/19 09:55 Electronically signed by Alla [facility] Conversion Immigration Consultant Cerner at 11/13/2022 11:14 AM CDT documented in this encounter Plan of Treatment Not on file documented as of this encounter Visit Diagnoses Not on filedocumented in this encounter
--- OUTSIDE RECORDS SUMMARY | 2025-02-22 14:10 | XMS_ITS | Encounter Summary ---
Author Organization [employer] ([place], [place], [place], [place]) Address [address] [place] [address] Care Team Providers Care Sheriff Name Role Phone Unavailable Primary Care Provider Unavailabl e Encounter Details Date Type Department Care Team (Late st Contact Info) Description 03/29/2019 Transcribed Document [facility] [place] [address] [place] [address] ProviderGregoria MD [address] [place] [address] Social History Tobacco Use Types Packs/Day Years [...] Source : Stated Height Entry Format : [place] Height, Feet : 5 ft(Converted to: 152 cm, 60 Inch) Height, Inches : 6 Inch(Converted to: 0 ft 6 Inch, 15.24 cm) Clinical Height : 167.64 cm Weight Source : Standing scale Weight Entry Format : Inland Clinical Dosing Weight : 106.36 kg Weight, Pounds : 234 lb Body Surface Area (BSA) : 2.14 m2 Body Mass Index : 37.8 kg/m2 ([place]) [place] Body Weight : 59 kg Connie Dickinson [...] : Independent (2) Feeding : Independent (2) Connei Dickinson RN - 03/29/2019 14:45 EDT ADL [...] Obtained From : Patient Primary Language : Mongolian Preferred Communication Mode : Verbal Communication Barrier [...] Connie Dickinson RN - 03/29/2019 14:45 EDT Electronically signed by Rochelle Gold Conversion Administrative Support Specialist Cerner at 11/13/2022 11:18 AM CDT documented in this encounter Plan of Treatment Not on file documented as of this encounter Visit Diagnoses Not on filedocumented in this encounter
--- OUTSIDE RECORDS SUMMARY | 2025-02-22 14:10 | XMS_ITS | Encounter Summary ---
Author Organization [employer] ([place], [place], [place], [place]) Address [address] [place] [address] Care Team Providers Care Pipe Threader Name Role Phone Unavailable Primary Care Provider Unavailabl e Encounter Details Date Type Department Care Team (Late st Contact Info) Description 03/30/2019 Transcribed Document [facility] Family Medicine [address] [place] [address] ProviderGregoria MD [address] [place] [address] Social History Tobacco Use Types Packs/Day Years [...] CHARO SAPP/Sex: 1995 Female Med Rec #: [id number] Physician: WES THOMPSON MD-OBG Financial #: [id number] Pt. Type: O Room/Bed: Admit/Disch: 03/30/19 06:09:00 - 03/30/19 11:02:00 [place] [facility] IntraOp Case Attendance Entry 1 Entry 2 Entry 3 Case Attendee WES THOMPSON MD-OBG Ricardo Glaser RN RENFROE, REBECCA, CRNA Role Performed Surgeon/Proceduralist, Pouncing Lathe Operator, First FLEECER/Nurse Field Captain First Time In 03/30/19 07:33:00 03/30/19 07:33:00 [...] FA Role Performed Scrub, First Scrub, Second Roentgenology Teacher, First Time In 03/30/19 07:33:00 03/30/19 07:33:00 [...] Praneeth Bazan Cheryl B, RN Role Performed Butcher Fish, Ancillary Pouncing Lathe Operator, First Time In 03/30/19 07:33:00 03/30/19 08:58:00 Time Out 03/30/19 09:30:00 03/30/19 09:30:00 Procedure Hysteroscopy Operative, Hysteroscopy Operative, Laparoscopy Diagnostic, Laparoscopy Diagnostic, Lysis Adhesions, Lysis Adhesions, Ovarian Cystectomy Ovarian Cystectomy Laparoscopic Laparoscopic Other Attendee BREAK RELIEF Superficial Wound Closed By: Last Modified By: Ricardo Glaser RN Cutwright, Shawsta, RN 03/31/19 09:52:36 03/31/19 09:52:36 [facility] IntraOp Case Attendance Audit 03/31/19 09:52:36 Building Surveyor: [email or web address] Modifier: [email or web address] 1 <*> Procedure Hysteroscopy Operative, Laparoscopy Diagnostic 2 <*> Procedure Hysteroscopy Operative, Laparoscopy Diagnostic 3 <*> Procedure Hysteroscopy Operative, Laparoscopy Diagnostic 4 <*> Procedure Hysteroscopy Operative, Laparoscopy Diagnostic 5 <*> Procedure Hysteroscopy Operative, Laparoscopy Diagnostic 6 <*> Procedure Hysteroscopy Operative, Laparoscopy Diagnostic 7 <*> Procedure Hysteroscopy Operative, Laparoscopy Diagnostic 8 <*> Procedure Hysteroscopy Operative, Laparoscopy Diagnostic 03/30/19 09:30:40 Building Surveyor: [email or web address] Modifier: CUTWRISK 1 <+> Time Out [...] Procedure Hysteroscopy Operative, Laparoscopy Diagnostic 03/30/19 09:08:32 Building Surveyor: CUTWRISK Modifier: CUTWRISK 1 <+> Time In [...] [facility] IntraOp Case Times Audit 03/30/19 09:30:38 Building Surveyor: CUTWRISK Modifier: [email or web address] <+> 1 Out Room Time <+> 1 Stop Time 03/30/19 09:25:51 Building Surveyor: CUTWRISK Modifier: CUTWRISK <+> 1 Stop Time [...] [facility] IntraOp Counts Verification Audit 03/31/19 09:52:38 Building Surveyor: CUTWRISK Modifier: CUTWRISK 1 <*> Procedure Hysteroscopy Operative, Laparoscopy Diagnostic 2 <*> Procedure Hysteroscopy Operative, Laparoscopy Diagnostic 3 <*> Procedure Hysteroscopy Operative, Laparoscopy Diagnostic 03/30/19 09:01:06 Building Surveyor: CUTWRISK Modifier: CUTWRISK <+> 3 Procedure <+> [...] [facility] IntraOp Counts Final Audit 03/31/19 09:52:40 Building Surveyor: CUTWRISK Modifier: CUTWRISK 1 <*> Procedure Hysteroscopy Operative, Laparoscopy Diagnostic 03/30/19 09:19:32 Building Surveyor: CUTWRISK Modifier: CUTWRISK 1 <*> Procedure Hysteroscopy [...] RN 03/30/19 08:14:24 [facility] IntraOp General Case Hosiery Mender 1 Case Information OR OR 04 [facility] [...] Location Scopes Photo/Video Documentation Last Modified By: Riacrdo Glaser RN 03/30/19 08:18:18 [facility] IntraOp Medication Admin Entry 1 Medication/Irrigant Marcaine 0.25% w/ epinephrine 1:200,000 30ml vial - [id number] Route of LOCAL Administration Dose Volume QS [...] [facility] IntraOp Patient Positioning Audit 03/31/19 09:52:39 Building Surveyor: PARRISHWRISK Modifier: CUTWRISK 1 <*> Procedure Laparoscopy [...] Intra Op Sign Out Audit 03/30/19 09:01:14 Building Surveyor: CUTWRISK Modifier: CUTWRISK <+> 1 RN Sign Out Signature Date/Time [facility] IntraOp Skin Prep Entry 1 Procedure Lysis Adhesions, Ovarian Cystectomy Laparoscopic Prescribed N/A Pre-Surgical Prep Completed Prep Area VAGINA/ABDOMEN Intraop Prep Integumentary WDL Assessment WDL Prep Agents Betadine scrub, Chloraprep Prep by Ricardo Glaser RN Hair Removal Last Modified By: Ricardo Glaser RN 03/31/19 09:52:39 [facility] IntraOp Skin Prep Audit 03/31/19 09:52:39 Building Surveyor: CUTWRISK Modifier: CUTWRISK <+> 1 Procedure [facility] [...] Description Primary Procedure No Primary Surgeon WES HTOMPSON MD-OBG Start 03/30/19 08:02:00 Stop 03/30/19 09:23:00 Physician States Cecum Reached Anesthesia Type General Specialty SN Gynecology Wound Class I - Clean Last Modified By: Ricardo Glaser RN 03/31/19 09:52:30 [facility] IntraOp Surgical Procedures Audit 03/31/19 09:52:30 Building Surveyor: CUTWRISK Modifier: CUTWRISK <+> 3 Procedure <+> 3 Primary Procedure <+> 3 Primary Surgeon <+> 3 Specialty <+> 3 Start <+> 3 Stop <+> 3 Wound Class <+> 3 Anesthesia Type <+> 4 Procedure <+> 4 Primary Procedure <+> 4 Primary Surgeon <+> 4 Specialty <+> 4 Start <+> 4 Stop <+> 4 Wound Class <+> 4 Anesthesia Type 03/30/19 09:25:56 Building Surveyor: CUTWRISK Modifier: CUTWRISK <+> 1 Stop <+> 2 Stop 03/30/19 09:19:19 Building Surveyor: CUTWRISK Modifier: CUTWRISK 1 <*> Procedure Hysteroscopy Operative 1 <*> Additional Procedure Description HYSTEROSCOPIC RESECTION OF LARGE UTERINE SEPTUM WITH DIAGNOSTIC LAPAROSCOPY, LYSIS OF ADHESIONS 03/30/19 09:05:29 Building Surveyor: CUTWRISK Modifier: CUTWRISK 1 <*> Procedure Hysteroscopy [...] [facility] IntraOp Time Out Audit 03/31/19 09:52:39 Building Surveyor: PARRISHWRISK Modifier: CUTWRISK 1 <*> Procedure to [...]
--- OUTSIDE RECORDS SUMMARY | 2025-02-22 14:10 | XMS_ITS | Encounter Summary ---
Author Organization [employer] ([place], [place], [place], [place]) Address [address] [place] [address] Care Team Providers Care Top Lift Trimmer Name Role Phone Unavailable Primary Care Provider Unavailabl e Encounter Details Date Type Department Care Team (Late st Contact Info) Description 03/30/2019 Transcribed Document [facility] [place] Family Medicine [facility] [place] [address] ProviderGregoria MD [address] [place] [address] Social History Tobacco Use Types Packs/Day Years [...] PROCEDURE: 03/30/2019 SURGEON: José Miguel Beach MD SCRAP CRANE OPERATOR: Dylan Jacob PREOPERATIVE DIAGNOSIS(ES): 1. Uterine anomaly. [...] carefully transected the uterine septum with my assistant coach looking from above to make sure that [...] 0 V-Loc suture and we placed a omxcas-dp-qbzdo suture in that uterine wall perforation just [...]
== END 2025-02-22 23:59 | disposition home or self-care (01) ==
LOC: RT 14:08
PROVIDERS: PCP Family Medicine; Visit Provider Physician Assistant
DX: S82.891A Other fracture of right lower leg, initial encounter for closed fracture (principal); R22.41 Localized swelling, mass and lump, right lower limb; Z98.890 Other specified postprocedural states
CPT/HCPCS: 93971

== ENCOUNTER 2025-04-04 14:52 | Outpatient (CLI) | payer BC, SELFPAY ==
--- NOTE | 2025-04-04 14:55 | CA_ITS ---
FINAL REPORT CLINICAL HISTORY: Patient had rt ankle surgery 01/11/25. Previous RLE venous doppler 01/2025. Edema RLE since surgery. COMPARISON: None FINDINGS: DUPLEX VENOUS SONOGRAPHY OF THE RIGHT LOWER EXTREMITY Multiple transverse and longitudinal scans were performed of the femoropopliteal deep venous system, with augmentation and compression maneuvers. HISTORY: Pain FINDINGS: Normal phasic flow was noted in the visualized deep venous system. No intraluminal increased echogenicity is noted to suggest thrombus. There is normal compression and augmentation of the venous structures. No abnormal venous collaterals are seen. IMPRESSION: No evidence of deep venous thrombosis of the right lower extremity. Reviewed, Interpreted and Dictated by Deb Beach MD Transcribed by Latonya Farias Authenticated and [facility]
--- OUTSIDE RECORDS SUMMARY | 2025-04-04 14:58 | XMS_ITS | Clinical Summary ---
Author Organization [facility] Address [facility] [address] [place] [address] Care Team Providers Care Manager Forensic Name Role Phone Pcp, No Primary Care Provider [phone] Source Comments This information has been disclosed [...] therelease of HIV test results or diagnoses. [id number] Social History Tobacco Use Types Packs/Day Years Used Date Smoking Tobacco: Never Assessed Comments Unknown Sex and Gender Information Value Date Recorded Sex Assigned at Not on file Legal Sex Female 1:31 PM EDT Gender Identity Not on file Sexual Orientation Not on file Plan of Treatment Not on file Insurance Care Teams Manager Forensic Relationship Specialty Start Date End Date PcpBrandie No Address PCP - General 12/05/24
== END 2025-04-04 23:59 | disposition home or self-care (01) ==
LOC: RT 14:53
PROVIDERS: PCP Family Medicine; Visit Provider Physician Assistant
DX: M79.604 Pain in right leg (principal); R22.41 Localized swelling, mass and lump, right lower limb; Z98.890 Other specified postprocedural states
CPT/HCPCS: 93971

== ENCOUNTER 2025-05-07 17:05 | Outpatient (CLI) | payer BC, SELFPAY ==
[2025-05-07 18:01] LABS: Hematocrit 41.8 % (37.0-47.0); Hemoglobin 13.0 g/dL (12.2-16.2); Immature Granulocytes % 0.3 %; Mean Corpuscular HGB Conc 31.1 g/dL (31.8-35.4); Mean Corpuscular Hemoglobin 27.9 pg (27.0-31.2); Mean Corpuscular Volume 89.7 fl (81-99); Nucleated Red Blood Cells % 0 %; Platelet Count 303 K/mm3 (142-424); Red Blood Count 4.66 M/mm3 (4.20-5.40); Red Cell Distribution Width-SD 41.3 fL; White Blood Count 7.4 K/mm3 (4.8-10.8)
[2025-05-07 18:59] LABS: Albumin Level 4.2 g/dl (3.5-5.0); Chloride 101 mmol/L (98-107); Potassium 4.2 mmoL/L (3.5-5.1); Sodium 138 mmol/L (136-145)
[2025-05-07 19:01] LABS: Alanine Aminotransferase 16 U/L (12-78); Aspartate Amino Transferase 19 U/L (14-36); Blood Urea Nitrogen 10 mg/dl (7-17); Creatinine,Serum 0.50 mg/dl (0.52-1.04); Estimated Glomerular Filt Rate 143 ml/min (>60); GFR (African American) 173 ML/MIN (>60)
[2025-05-07 19:02] LABS: Albumin/Globulin Ratio 1.2 (1.1-1.8); Alkaline Phosphatase 92 U/L (38-126); Anion Gap 15.2 mEq/L (5-15); Bilirubin,Total 0.6 mg/dl (0.2-1.3); Calcium 9.0 mg/dl (8.4-10.2); Carbon Dioxide 26 mmol/L (22.0-30.0); Cholesterol 186 mg/dl (140-200); Globulin 3.5 g/dL (1.3-3.2); Glucose 82 mg/dl (74-100); HDL Cholesterol 33 mg/dl (40-60); Total Protein,Serum 7.7 g/dl (6.3-8.2); Triglycerides 180 mg/dl (30-150)
[2025-05-07 19:18] LABS: Triiodothryronine (T3) Uptake 32 % (23.5-40.5)
[2025-05-07 19:19] LABS: Free Thyroxine Index 3.3 ug/dL (5.93-13.13); T4 (Thyroxine) 10.2 ug/dl (5.53-11.0)
[2025-05-07 19:33] LABS: Thyroid Stimulating Hormone 1.06 uIU/mL (0.465-4.68)
--- OUTSIDE RECORDS SUMMARY | 2025-05-08 17:09 | XMS_ITS | Encounter Summary ---
Author Organization [employer] ([place], [place], [place], [place]) Address [address] [place] [address] Care Team Providers Care Pipe Maker Name Role Phone Unavailable Primary Care Provider Unavailabl e Encounter Details Date Type Department Care Team (Late st Contact Info) Description 03/30/2019 Transcribed Document [facility] [place] [address] [place] [address] ProviderGregoria MD [address] [place], [place] [id number] Social History Tobacco Use Types Packs/Day Years [...] Griffiths MD - 03/30/2019 10:35 AM CDT [place] [id number] CHARO HERNADEZ :1995 Visit Time:03/30/2019 What to [...] EDT Where: [address] [place] [address]- [employer] (1) Medications What How Much When Instructions [...] these instructions at home: Medicines ??? Take unaf-iwh-azfcwgz and prescription medicines only as told by [...] and water are not available, use hand information technology specialist. ? Change your dressing as told by [...] keep your urine pale yellow. ? Take rvdq-eez-jejekgp or prescription medicines. ? Eat foods that [...] 06/22/2016 Document Revised: 01/05/2018 Document Reviewed: 01/05/2018 Soft[employer]k Interactive Patient Education ?? 2019 [employer] Inc. General Anesthesia, Adult, Care After This [...] activities are safe for you. ??? Take jxgw-jbo-fcnvftq and prescription medicines only as told by [...] 10/18/2001 Document Revised: 02/25/2018 Document Reviewed: 02/25/2018 [employer] Interactive Patient Education ?? 2019 [employer]. acetaminophen and hydrocodone (a SEET a MIN oh fen and dayanara droe KOE done) Hycet, Lorcet, [place], Verdrocet, Vicodin, Xodol, Zamicet What is the [...] may report side effects to FDA at 6-466-ZDP-1165. What other drugs will affect acetaminophen and [...] affect acetaminophen and hydrocodone, including prescription and lwfc-ydv-zbqmgbi medicines, vitamins, and herbal products. Not all [...] to ensure that the information provided by [employer]. ('[employer]') is accurate, up-to-date, and complete, but no guarantee is made to that effect. Drug information contained herein may be time sensitive. [employer] information has been compiled for use by healthcare practitioners and consumers in the [place] and therefore [employer] does not warrant that uses outside of the [place] are appropriate, unless specifically indicated otherwise. [employer]'s drug information does not endorse drugs, diagnose patients or recommend therapy. [employer] drug information is an informational resource designed [...] effective or appropriate for any given patient. [employer] does not assume any responsibility for any aspect of healthcare administered with the aid of information [employer] provides. The information contained herein is not intended to cover all possible uses, directions, precautions, warnings, drug interactions, allergic reactions, or adverse effects. If you have questions about the drugs you are taking, check with your doctor, nurse or pharmacist. Copyright 8346-5134 [employer]. Version: 15.02. Revision Date: 05/30/2018. Emergency Awareness [...] Assistance with quitting is available by contacting 8-285-TFBS-NOW. This is a free resource providing counseling, [...] was given the opportunity to ask questions. Patient/Laundry Route Driver Name: Patient/Laundry Route Driver Signature: Relationship to Patient: Clinician/Hospital Laundry Route Driver Signature: Date: documented in this encounter Plan of Treatment Not on file documented as of this encounter Visit Diagnoses Not on filedocumented in this encounter
--- OUTSIDE RECORDS SUMMARY | 2025-05-08 17:09 | XMS_ITS | Encounter Summary ---
Author Organization [employer] ([place], [place], [place], [place]) Address [address] [place] [address] Care Team Providers Care Manager Animal Name Role Phone Unavailable Primary Care Provider Unavailabl e Encounter Details Date Type Department Care Team (Late st Contact Info) Description 03/30/2019 Transcribed Document [facility] [place] Family Medicine [address] [place] [address] ProviderGregoria MD [address] [place] [address] Social History Tobacco Use Types Packs/Day Years [...] CHARO SAPP/Sex: 1995 Female Med Rec #: [id number] Physician: WES THOMPSON MD-OBG Financial #: [id number] Pt. Type: O Room/Bed: Admit/Disch: 03/30/19 06:09:00 - Institution: [facility] [place] PreOp Case Times Entry 1 In Preop 03/30/19 05:55:00 Ready for Holding n/a Room Patient Ready for 03/30/19 07:06:00 Surgery Patient Out of Preop 03/30/19 07:27:00 Patient Out of n/a Holding Room Last Modified By: SUDHEER GREENE RN 03/30/19 09:55:25 [facility] PreOp Case Times Audit 03/30/19 09:55:25 Wheel Blocker: [email or web address] Modifier: [email or web address] <+> 1 Patient Out of Preop Finalized By: SUDHEER GREENE, RN Document Signatures Signed By: SUDHEER GREENE RN 03/30/19 09:55 Electronically signed by Alla [facility] Conversion American Sign Language Teacher Cerner at 11/13/2022 11:14 AM CDT documented in this encounter Plan of Treatment Not on file documented as of this encounter Visit Diagnoses Not on filedocumented in this encounter
--- OUTSIDE RECORDS SUMMARY | 2025-05-08 17:09 | XMS_ITS | Encounter Summary ---
Author Organization [employer] ([place], [place], [place], [place]) Address [address] [place] [address] Care Team Providers Care Management Aide Name Role Phone Unavailable Primary Care Provider Unavailabl e Encounter Details Date Type Department Care Team (Late st Contact Info) Description 03/30/2019 Transcribed Document [facility] [place] Family Medicine [address] [place] [address] ProviderGregoria MD [address] [place] [address] Social History Tobacco Use Types Packs/Day Years [...] CHARO SAPP/Sex: 1995 Female Med Rec #: [id number] Physician: WES THOMPSON MD-OBG Financial #: [id number] Pt. Type: O Room/Bed: Admit/Disch: 03/30/19 06:09:00 - 03/30/19 11:02:00 [place] [facility] [place]Op Case Attendance Entry 1 Entry 2 Entry 3 Case Attendee WES THOMPSON MD-OBG Ricardo Glaser RN RENFROE, REBECCA, CRNA Role Performed Surgeon/Proceduralist, Stuffing Machine Operator, First GARDEN WORKER/Nurse Workforce Staffing Advisor First Time In 03/30/19 07:33:00 03/30/19 07:33:00 [...] FA Role Performed Scrub, First Scrub, Second Claims Correspondence Clerk, First Time In 03/30/19 07:33:00 03/30/19 07:33:00 [...] Praneeth Bazan Cheryl B, RN Role Performed Electrical Accessories Ii Assembler, Ancillary Stuffing Machine Operator, First Time In 03/30/19 07:33:00 03/30/19 08:58:00 Time Out 03/30/19 09:30:00 03/30/19 09:30:00 Procedure Hysteroscopy Operative, Hysteroscopy Operative, Laparoscopy Diagnostic, Laparoscopy Diagnostic, Lysis Adhesions, Lysis Adhesions, Ovarian Cystectomy Ovarian Cystectomy Laparoscopic Laparoscopic Other Attendee BREAK RELIEF Superficial Wound Closed By: Last Modified By: Ricardo Glaser RN Cutwright, Shawsta, RN 03/31/19 09:52:36 03/31/19 09:52:36 [facility] IntraOp Case Attendance Audit 03/31/19 09:52:36 Well Reactivator Operator: [email or web address] Modifier: [email or web address] 1 <*> Procedure Hysteroscopy Operative, Laparoscopy Diagnostic 2 <*> Procedure Hysteroscopy Operative, Laparoscopy Diagnostic 3 <*> Procedure Hysteroscopy Operative, Laparoscopy Diagnostic 4 <*> Procedure Hysteroscopy Operative, Laparoscopy Diagnostic 5 <*> Procedure Hysteroscopy Operative, Laparoscopy Diagnostic 6 <*> Procedure Hysteroscopy Operative, Laparoscopy Diagnostic 7 <*> Procedure Hysteroscopy Operative, Laparoscopy Diagnostic 8 <*> Procedure Hysteroscopy Operative, Laparoscopy Diagnostic 03/30/19 09:30:40 Well Reactivator Operator: CUTWRISK Modifier: [email or web address] 1 <+> Time Out [...] Procedure Hysteroscopy Operative, Laparoscopy Diagnostic 03/30/19 09:08:32 Well Reactivator Operator: CUTWRISK Modifier: CUTWRISK 1 <+> Time In [...] [facility] IntraOp Case Times Audit 03/30/19 09:30:38 Well Reactivator Operator: CUTWRISK Modifier: CUTWRISK <+> 1 Out Room Time <+> 1 Stop Time 03/30/19 09:25:51 Well Reactivator Operator: CUTWRISK Modifier: [email or web address] <+> 1 Stop Time [...] [facility] IntraOp Counts Verification Audit 03/31/19 09:52:38 Well Reactivator Operator: CUTWRISK Modifier: CUTWRISK 1 <*> Procedure Hysteroscopy Operative, Laparoscopy Diagnostic 2 <*> Procedure Hysteroscopy Operative, Laparoscopy Diagnostic 3 <*> Procedure Hysteroscopy Operative, Laparoscopy Diagnostic 03/30/19 09:01:06 Well Reactivator Operator: CUTWRISK Modifier: CUTWRISK <+> 3 Procedure <+> [...] [facility] IntraOp Counts Final Audit 03/31/19 09:52:40 Well Reactivator Operator: CUTWRISK Modifier: CUTWRISK 1 <*> Procedure Hysteroscopy Operative, Laparoscopy Diagnostic 03/30/19 09:19:32 Well Reactivator Operator: CUTWRISK Modifier: CUTWRISK 1 <*> Procedure Hysteroscopy [...] RN 03/30/19 08:14:24 [facility] IntraOp General Case Tool Crib Supervisor 1 Case Information OR OR 04 [facility] [...] 0.25% w/ epinephrine 1:200,000 30ml vial - [id number] Route of LOCAL Administration Dose Volume QS [...] [facility] IntraOp Patient Positioning Audit 03/31/19 09:52:39 Well Reactivator Operator: PARRISHWRISK Modifier: CUTWRISK 1 <*> Procedure Laparoscopy [...] Intra Op Sign Out Audit 03/30/19 09:01:14 Well Reactivator Operator: CUTWRISK Modifier: CUTWRISK <+> 1 RN Sign Out Signature Date/Time [facility] IntraOp Skin Prep Entry 1 Procedure Lysis Adhesions, Ovarian Cystectomy Laparoscopic Prescribed N/A Pre-Surgical Prep Completed Prep Area VAGINA/ABDOMEN Intraop Prep Integumentary WDL Assessment WDL Prep Agents Betadine scrub, Chloraprep Prep by Ricardo Glaser RN Hair Removal Last Modified By: Ricardo Glaser RN 03/31/19 09:52:39 [facility] IntraOp Skin Prep Audit 03/31/19 09:52:39 Well Reactivator Operator: CUTWRISK Modifier: CUTWRISK <+> 1 Procedure SJE [...] [facility] IntraOp Surgical Procedures Audit 03/31/19 09:52:30 Well Reactivator Operator: CUTWRISK Modifier: CUTWRISK <+> 3 Procedure <+> 3 Primary Procedure <+> 3 Primary Surgeon <+> 3 Specialty <+> 3 Start <+> 3 Stop <+> 3 Wound Class <+> 3 Anesthesia Type <+> 4 Procedure <+> 4 Primary Procedure <+> 4 Primary Surgeon <+> 4 Specialty <+> 4 Start <+> 4 Stop <+> 4 Wound Class <+> 4 Anesthesia Type 03/30/19 09:25:56 Well Reactivator Operator: CUTWRISK Modifier: CUTWRISK <+> 1 Stop <+> 2 Stop 03/30/19 09:19:19 Well Reactivator Operator: CUTWRISK Modifier: CUTWRISK 1 <*> Procedure Hysteroscopy Operative 1 <*> Additional Procedure Description HYSTEROSCOPIC RESECTION OF LARGE UTERINE SEPTUM WITH DIAGNOSTIC LAPAROSCOPY, LYSIS OF ADHESIONS 03/30/19 09:05:29 Well Reactivator Operator: CUTWRISK Modifier: CUTWRISK 1 <*> Procedure Hysteroscopy [...] [facility] IntraOp Time Out Audit 03/31/19 09:52:39 Well Reactivator Operator: PARRISHWRISK Modifier: CUTWRISK 1 <*> Procedure to be Performed Hysteroscopy Operative, Laparoscopy Diagnostic Case Comments <None> Finalized By: Rciardo Glaser RN Document Signatures Signed By: Melisa [...]
--- OUTSIDE RECORDS SUMMARY | 2025-05-08 17:09 | XMS_ITS | Encounter Summary ---
Author Organization [employer] ([place], [place], [place], [place]) Address [address] [place] [address] Care Team Providers Care Cook Barbecue Name Role Phone Unavailable Primary Care Provider Unavailabl e Encounter Details Date Type Department Care Team (Late st Contact Info) Description 03/30/2019 Transcribed Document [facility] [place] Family Medicine [address] [place] [address] ProviderGregoria MD [address] [place] [address] Social History Tobacco Use Types Packs/Day Years [...] CHARO SAPP/Sex: 1995 Female Med Rec #: [id number] Physician: WES THOMPSON MD-OBG Financial #: [id number] Pt. Type: O Room/Bed: Admit/Disch: 03/30/19 06:09:00 - Institution: [facility] [place] Main [place] PACU Case Times Entry 1 In PACU I 03/30/19 09:32:00 Ready for PACU 03/30/19 10:17:00 Discharge Discharge from PACU 03/30/19 10:17:00 I Last Modified By: DAGO ISAAC 03/30/19 10:12:19 Finalized By: DAGO ISAAC Document Signatures Signed By: DAGO ISAAC 03/30/19 10:12 Electronically signed by Alla [facility] Conversion Central Supply Technician Supervisor Cerner at 11/13/2022 11:17 AM CDT documented in this encounter Plan of Treatment Not on file documented as of this encounter Visit Diagnoses Not on filedocumented in this encounter
--- OUTSIDE RECORDS SUMMARY | 2025-05-08 17:09 | XMS_ITS | Encounter Summary ---
Author Organization [employer] ([place], [place], [place], [place]) Address [address] [place] [address] Care Team Providers Care Answering Service Telephone Operator Name Role Phone Unavailable Primary Care Provider Unavailabl e Encounter Details Date Type Department Care Team (Late st Contact Info) Description 03/29/2019 Transcribed Document [facility] [place] Family Medicine [facility] [place] [address] ProviderGregoria MD [address] [place] [address] Social History Tobacco Use Types Packs/Day Years [...]
--- OUTSIDE RECORDS SUMMARY | 2025-05-08 17:09 | XMS_ITS | Encounter Summary ---
Author Organization [employer] ([place], [place], [place], [place]) Address [address] [place] [address] Care Team Providers Care Stone Sawyer Name Role Phone Unavailable Primary Care Provider Unavailabl e Encounter Details Date Type Department Care Team (Late st Contact Info) Description 03/30/2019 Transcribed Document [facility] [place] Family Medicine [address] [place] [address] ProviderGregoria MD [address] [place] [address] Social History Tobacco Use Types Packs/Day Years [...] these instructions at home: Medicines ??? Take wack-rid-yvukhax and prescription medicines only as told by [...] and water are not available, use hand oil agent. ? Change your dressing as told by [...] keep your urine pale yellow. ? Take xbrf-iqv-inbizro or prescription medicines. ? Eat foods that [...] 06/22/2016 Document Revised: 01/05/2018 Document Reviewed: 01/05/2018 [employer] Interactive Patient Education ? 2019 [employer]. General Anesthesia, Adult, Care After This [...] activities are safe for you. ??? Take heyw-cqm-vbbmqye and prescription medicines only as told by [...] 02/25/2018 Elsevier Interactive Patient Education ? 2019 [employer] documented in this encounter Plan of Treatment Not on file documented as of this encounter Visit Diagnoses Not on filedocumented in this encounter
--- OUTSIDE RECORDS SUMMARY | 2025-05-08 17:09 | XMS_ITS | Encounter Summary ---
Author Organization [employer] ([place], [place], [place], [place]) Address [address] [place] [address] Care Team Providers Care Graphics Intern Name Role Phone Unavailable Primary Care Provider Unavailabl e Encounter Details Date Type Department Care Team (Late st Contact Info) Description 03/30/2019 Transcribed Document [facility] [place] Family Medicine [address] [place] [address] ProviderGregoria MD [address] [place] [address] Social History Tobacco Use Types Packs/Day Years [...] Source : Stated Height Entry Format : [place] Height, Feet : 5 ft(Converted to: 152 cm, 60 Inch) Height, Inches : 6 Inch(Converted to: 0 ft 6 Inch, 15.24 cm) Clinical Height : 167.64 cm Weight Source : Standing scale Weight Entry Format : [place] Clinical Dosing Weight : 103.64 kg Weight, Pounds : 228 lb Body Surface Area (BSA) : 2.12 m2 Body Mass Index : 36.9 kg/m2 (OK) [place] Body Weight : 59 kg Gely Love Rn - 03/30/2019 6:49 EDT Health Histories Smoking Status : Never (less than 100 in lifetime; none in last 30 days) Smokeless Tobacco Status : Never Implant/Device Type, Hand Miter Operator and Model : denies Gely Love Rn [...] Obtained From : Patient Primary Language : [place] Preferred Communication Mode : Verbal Communication Barrier [...] Scale Risk Level : 0-24 Low Risk [place] Fall Interventions : Adequate lighting, Bed in [...] the text rendition version of the form. Hilbert Coma Luis Best Motor Response : Obey commands Hilbert Best Verbal Response : Oriented Luis Eye Opening Response : Spontaneous Hilbert Coma Score : 15 Gely Love Rn - 03/30/2019 6:49 EDT Electronically signed by Rochelle Gold Conversion Retail Sales Merchandiser Development Cerner at 11/13/2022 11:18 AM CDT documented in this encounter Plan of Treatment Not on file documented as of this encounter Visit Diagnoses Not on filedocumented in this encounter
--- OUTSIDE RECORDS SUMMARY | 2025-05-08 17:09 | XMS_ITS | Encounter Summary ---
Author Organization [employer] ([place], [place], [place], [place]) Address [address] [place] [address] Care Team Providers Care Country Printer Apprentice Name Role Phone Unavailable Primary Care Provider Unavailabl e Reason for Visit * Reason Comments Medication Refill Encounter Details Date Type Department Care Team (Late st Contact Info) Description 03/03/2023 Refill [facility] BURGLARY INVESTIGATOR - [address] [place] [id number] José Miguel Beach MD [address] [place] [address] Social History Tobacco Use Types Packs/Day Years [...]
--- OUTSIDE RECORDS SUMMARY | 2025-05-08 17:09 | XMS_ITS | Clinical Summary ---
Author Organization [facility] Address [facility] [place] [address] Care Team Providers Care Timber Management Specialist Name Role Phone Pcp, No Primary Care Provider [phone] Source Comments This information has been disclosed [...] therelease of HIV test results or diagnoses. [id number] Social History Tobacco Use Types Packs/Day Years Used Date Smoking Tobacco: Never Assessed Comments Unknown Sex and Gender Information Value Date Recorded Sex Assigned at Not on file Legal Sex Female 1:31 PM EDT Gender Identity Not on file Sexual Orientation Not on file Plan of Treatment Not on file Insurance Care Teams Timber Management Specialist Relationship Specialty Start Date End Date PcpBrandie No Address PCP - General 12/05/24
--- OUTSIDE RECORDS SUMMARY | 2025-05-08 17:09 | XMS_ITS | Encounter Summary ---
Author Organization [employer] ([place], [place], [place], [place]) Address [address] [place] [address] Care Team Providers Care Moisture Meter Reader Name Role Phone Unavailable Primary Care Provider Unavailabl e Encounter Details Date Type Department Care Team (Late st Contact Info) Description 03/30/2019 Transcribed Document [facility] [place] Family Medicine [facility] [place] [address] ProviderGregoria MD [address] [place] [address] Social History Tobacco Use Types Packs/Day Years [...] PROCEDURE: 03/30/2019 SURGEON: José Miguel Beach MD REGIONAL INTERMODAL TRUCK DRIVER: Dylan Jacob PREOPERATIVE DIAGNOSIS(ES): 1. Uterine anomaly. [...] carefully transected the uterine septum with my veterinary technician assistant looking from above to make sure [...] 0 V-Loc suture and we placed a uzfodb-is-zpzlv suture in that uterine wall perforation just [...]
--- OUTSIDE RECORDS SUMMARY | 2025-05-08 17:09 | XMS_ITS | Clinical Summary ---
Author Organization [email or web address] ([place], [place], [place], [place]) Address [address] [place] [address] Care Team Providers Care Documentation Coordinator Name Role Phone Unavailable Primary Care [...] Date Chente rded Speak language other than [place] at home Not on file 08/13/2023 Want [...] (12+) 10/21/2023 10/20/2022 COVID-19 VACCINE (3 - 2024-2 6 season) 2025 04/28/2021, 04/07/2021 Influenza Vaccine (#1) 2025 , 04/18/2010 DTAP/TDAP/TD VACCINES (3 - T d or Tdap) 04/27/2025 04/27/2015, 04/18/2010 Pneumococcal Vaccine: 0-49 Years Aged Out No longer eligible b ased on patient's age to complete this topic Insurance [place] [address]
--- OUTSIDE RECORDS SUMMARY | 2025-05-08 17:09 | XMS_ITS | Encounter Summary ---
Author Organization [employer] ([place], [place], [place], [place]) Address [address] [place] [address] Care Team Providers Care Pharmacy Affairs Assistant Name Role Phone Unavailable Primary Care Provider Unavailabl e Encounter Details Date Type Department Care Team (Late st Contact Info) Description 03/30/2019 Transcribed Document [facility] [place] Family Medicine [address] [place] [address] ProviderGregoria MD [address] [place] [address] Social History Tobacco Use Types Packs/Day Years [...] CHARO SAPP/Sex: 1995 Female Med Rec #: [id number] Physician: WES THOMPSON MD-OBG Financial #: [id number] Pt. Type: O Room/Bed: Admit/Disch: 03/30/19 06:09:00 - Institution: [facility] Main OR PostOp Case Times Entry 1 In PACU II 03/30/19 10:17:00 Ready for PACU II 03/30/19 11:02:00 Discharge Discharge from PACU 03/30/19 11:02:00 II Last Modified By: LILA SZYMANSKI RN 03/30/19 11:13:13 [facility] Main OR PostOp Case Times Audit 03/30/19 11:13:13 Orthophoto Tech/Draftsman: COLEMAM Modifier: SCHROEJ <+> 1 Ready for PACU II Discharge <+> 1 In PACU II <+> 1 Discharge from PACU II 03/30/19 10:12:07 Orthophoto Tech/Draftsman: COLEMAM Modifier: COLEMAM 1 <-> Ready for [...]
--- OUTSIDE RECORDS SUMMARY | 2025-05-08 17:09 | XMS_ITS | Encounter Summary ---
Author Organization [employer] ([place], [place]) Address [address] [place] [address] Care Team Providers Care Coin Teller Name Role Phone Unavailable Primary Care Provider Unavailabl e Encounter Details Date Type Department Care Team (Late st Contact Info) Description 03/29/2019 Transcribed Document [facility] [place] Family Medicine [address] [place] [address] ProviderGregoria MD [address] [place] [address] Social History Tobacco Use Types Packs/Day Years [...] Source : Stated Height Entry Format : [place] Height, Feet : 5 ft(Converted to: 152 cm, 60 Inch) Height, Inches : 6 Inch(Converted to: 0 ft 6 Inch, 15.24 cm) Clinical Height : 167.64 cm Weight Source : Standing scale Weight Entry Format : [place] Clinical Dosing Weight : 106.36 kg Weight, Pounds : 234 lb Body Surface Area (BSA) : 2.14 m2 Body Mass Index : 37.8 kg/m2 (HI) [place] Body Weight : 59 kg Connie Dickinson [...] Obtained From : Patient Primary Language : American Preferred Communication Mode : Verbal Communication Barrier [...] EDT Electronically signed by Rochelle Gold Conversion Lending Activities Supervisor Cerner at 11/13/2022 11:18 AM CDT documented in this encounter Plan of Treatment Not on file documented as of this encounter Visit Diagnoses Not on filedocumented in this encounter
--- OUTSIDE RECORDS SUMMARY | 2025-05-08 17:09 | XMS_ITS | Referral Summary ---
Author Organization [employer] ([place], [place], [place], [place]) Address [address] [place] [address] Care Team Providers Care Soft Crab Shedder Name Role Phone Unavailable Primary Care Provider [...] Date Chente rded Speak language other than Lao at home Not on file 08/13/2023 Want [...] Plan of Treatment Not on file Insurance [facility]
== END 2025-05-07 23:59 | disposition home or self-care (01) ==
LOC: LAB.DROPOF 05-08 17:06
PROVIDERS: PCP Family Medicine; Visit Provider Family Medicine
DX: D64.9 Anemia, unspecified (principal); E03.9 Hypothyroidism, unspecified
CPT/HCPCS: 80053; 80061; 84436; 84443; 84479; 85025

== ENCOUNTER 2025-07-04 08:19 | Outpatient (CLI) | payer BC, SELFPAY ==
[2025-07-04 18:03] LABS: Coronavirus 19, PCR Not Detected (NotDetected); Influenza A, PCR Not Detected (NotDetected); Influenza B, PCR Not Detected (NotDetected)
== END 2025-07-04 23:59 | disposition home or self-care (01) ==
LOC: LAB.DROPOF 07-06 11:45
PROVIDERS: PCP Family Medicine; Visit Provider Nurse Practitioner
DX: J06.9 Acute upper respiratory infection, unspecified (principal); J02.9 Acute pharyngitis, unspecified
CPT/HCPCS: 87631